=== PATIENT | male | born 1965 | race African-American/Black ===

== ENCOUNTER → 2021-02-03 16:01 | Outpatient (CLI) | payer OTHER, SELFPAY ==
--- NOTE | 2021-02-03 16:08 | EKG12_ITS ---
Test Reason : PREOP Blood Pressure : / mmHG Vent. Rate : 086 BPM Atrial Rate : 086 BPM P-R Int : 182 ms QRS Dur : 076 ms QT Int : 344 ms P-R-T Axes : 048 -26 015 degrees QTc Int : 411 ms Normal sinus rhythm Normal ECG Confirmed by RAUL KEY, MIRLANDE ([id number]), supervising editor news reel KELLI CROOK ([id number]) on 02/07/2021 1:22:47 PM Referred By: Sukumar Negron Confirmed By:MACHO CARTER MD
[2021-02-03 17:29] LABS: Hematocrit 44.4 % (40-54); Hemoglobin 14.6 g/dL (13.0-16.5); Mean Corp Hgb Conc 32.9 g/dL (32-36); Mean Corpuscular Hgb 29.8 pg (27.0-32.0); Mean Corpuscular Volume 90.6 fL (80-94); Mean Platelet Vol. 10.3 fl (6.2-12.0); Platelet Count 249 K/mm3 (150-450); RBC Distribution Width CV 13.1 % (11.6-14.6); RBC Distribution Width SD 42.8 fl (35.1-43.9); White Blood Count 6.4 K/mm3 (4.4-11.0)
[2021-02-03 18:03] LABS: Anion Gap 6 (5-15); BUN 19 mg/dL (7-18); BUN/Creat Ratio 15.3 RATIO (10-20); Chloride 104 mmol/L (98-107); Creatinine, Serum 1.24 mg/dL (0.70-1.30); EST Glomerular Filtration Rate 65 mL/min (>60); Est Glom Filt Rate - Afr Amer 78 mL/min (>60); Glucose 92 mg/dL (74-106); Potassium 4.4 mmol/L (3.5-5.1); Sodium Level 138 mmol/L (136-145)
== END ==
PROVIDERS: PCP Family Medicine; Referring Provider Physician Assistant; Visit Provider Physician Assistant
DX: Z01.810 Encounter for preprocedural cardiovascular examination (principal); Z01.818 Encounter for other preprocedural examination
CPT/HCPCS: 36415; 80048; 85027; 93005

== ENCOUNTER → 2024-02-15 | Outpatient (CLI) | payer OTHER, BC, SELFPAY ==
--- NOTE | 2024-02-15 11:36 | RAD_ITS ---
STUDY: X-RAY - RIGHT WRIST REASON FOR EXAM: Male, 58 years old. Pain following a recent fall. TECHNIQUE: 3 view(s) of the wrist were obtained. COMPARISON: None. FINDINGS: Normal visualized distal radius and ulna. Normal radiocarpal articulation. Normal distal radioulnar articulation. Normal carpal bones. Normal carpal articulations. Increased distance between the navicular and lunate bones. Ligamentous injury should be ruled out. Normal carpometacarpal articulation of the thumb. Normal second through fifth carpometacarpal articulations. Normal visualized metacarpal bones. Soft tissue swelling. RAD/Wrist min 3 Views IMPRESSION: Increased distance between the navicular bone and lunate bone suggestive of ligamentous injury. Soft tissue swelling. Electronically Signed: Gene Silva MD at 12:35 EDT ,
== END | disposition home or self-care (01) ==
PROVIDERS: PCP Family Medicine; Referring Provider Physician Assistant Surgical; Visit Provider Physician Assistant Surgical
DX: S66.911A Strain of unspecified muscle, fascia and tendon at wrist and hand level, right hand, initial encounter (principal)
CPT/HCPCS: 73110

== ENCOUNTER 2025-04-27 11:45 | Emergency (ER) | payer BC, SELFPAY ==
[2025-04-27 11:46] VITALS: BP 120/79; PULSE 76; RESP 18; TEMP 37; O2SAT 99; BMI 32.7
--- NOTE | 2025-04-27 11:58 | US_ITS ---
PROCEDURE: TESTICULAR WITH ARTERIAL FLOW 04/27/2025 REASON FOR EXAM: PAIN AND SWELLING TECHNIQUE: Cedeno scale imaging of the scrotal contents. COMPARISON: None FINDINGS: The right testicle measures 3.4 x 2.9 x 2.1 cm in the left 3.8 x 2.8 x 2.0 cm. There is no testicular mass or cyst. Normal color Doppler is documented with no evidence of torsion. The right epididymis measures 0.7 x 1.0 x 1.1 cm in the left 1.0 x 1.6 x 1.1 cm. There is a small left hydrocele present. There is no significant varicocele identified on the right or left. US/Testicular with Arterial Flow IMPRESSION: There is no testicular mass or torsion. There is a small left hydrocele. Reading Location: [facility]
[2025-04-27 13:45] VITALS: BP 139/70; PULSE 69; RESP 18; O2SAT 98
[2025-04-27 13:55] LABS: Bacteria 0 SEEN /hpf (None Seen); Red Blood Cells-Urine 0 SEEN /hpf (0-5); Squamous Epithelial Cells - UA 0 SEEN /hpf (0-5)
[2025-04-27 14:01] LABS: Color, Urine Yellow (Yellow); Glucose, Dipstick Normal (Normal); Ketone-Dipstick Negative (Negative); Leukocyte Esterase-Dipstick Negative /ul (Negative); Nitrite-Dipstick Negative (Negative); Occult Blood-Urine Negative /ul (Negative); Protein-Dipstick 15 mg/dl (Negative); Urine Bilirubin Dipstick Negative (Negative); Urine Clarity Clear (Clear); Urine Urobilinogen Normal (Normal)
[2025-04-27 14:14] LABS: Mucous, Urine 1+ /hpf (<or=2+); White Blood Cells 0-5 SEEN /hpf (0-5)
--- NOTE | 2025-04-27 14:45 | EDS_ITS ---
HPI History of Present Illness Chief Complaint: Male Pain/Injury Narrative Narrative: Chief complaint and HPI: Left testicular pain and swelling. 59-year-old male with past medical history of GERD presents for evaluation of left testicular pain and swelling. Onset of symptoms Sunday. Patient was seen by his PCP today and sent in for testicular ultrasound. Patient states that he has a history of testicular pain in the past. States he was diagnosed with a UTI and that his symptoms resolved. States he had recurrent pain one other time but that this shortly resolved. He denies any fever, chills, abdominal pain, nausea, vomiting, dysuria, hematuria, penile pain or discharge. States he has no concern for STI as he is in a monogamous relationship with his . He has never seen a urologist. Review of systems: See HPI Medications: As listed on the chart Allergies: As listed on the chart PFSH: Per chart Vital signs: As listed on the chart. Reviewed. Physical exam: Gen: A&O x3, NAD Head: Normocephalic, atraumatic Eyes: No sclera icterus, conjunctiva clear ENT: Moist mucous membranes CV: RRR, no murmurs Resp: Lungs CTA BL, no w/r/c GI: Abd soft, non-distended, non-tender, no r/r/g : No CVA tenderness. Circumcised penis. No penile tenderness or discharge. No penile swelling. Normal lie and position of the testicles although left testicle might be slightly higher than the right. Diffuse but mild left testicular pain without mass or skin changes. Slightly more enlarged compared to the right. Right testicular unremarkable. Cremasteric reflexes intact and equal bilaterally. No rashes. No palpable hernias. Musc: Full ROM, no deformity Skin: Warm, dry Neuro: Alert, oriented, grossly intact, sensation intact Psych: Cooperative, appropriate mood and affect [facility] Medical History (Updated 04/27/25 @ 14:[address] Quincy Delarosa DO) GERD (gastroesophageal reflux disease) History of hemorrhoids Home Medications ?Medication ?Instructions ?Recorded ?Last Taken ?Type famotidine 40 mg tablet 40 mg PO BID 02/15/24 Unknow n History Allergy/AdvReac Type Severity Reaction Status Date / Time cortisone Allergy Mild Rash Verified 02/29/24 11:55 Surgical History No pertinent past surgical history Social History (Updated 04/27/25 @ 13:14 by Susan Sosa) household members: spouse and children housing: house Smoking Status: Never smoker alcohol intake: current substance use type: does not use EXAM Physical Exam Const Vital Signs: 04/27/25 11:46 04/27/25 13:45 04/27/25 14:52 Temperature 98.6 F 98.3 F Temperature Source Temporal Pulse Rate 76 69 69 Respiratory Rate 18 18 18 Blood Pressure 120/79 139/70 H 139/70 H Blood Pressure Mean 92 93 93 Pulse Ox 99 98 98 Oxygen Delivery Method Room Air MDM MDM MDM Narrative Medical decision making narrative: 59-year-old male with past medical history of GERD presents for evaluation of left testicular pain and swelling. Onset of symptoms Sunday. Patient was seen by his PCP today and sent in for testicular ultrasound. Denies concern for STI. Differential diagnosis includes but is not limited to UTI, epididymitis, hydrocele, testicular mass, testicular torsion. UA and testicular ultrasound ordered. I do not think any laboratory workup is needed at this time. Patient declined STI testing. UA negative for UTI and blood. Testicular ultrasound shows no testicular mass or torsion. There is a small left hydrocele. Patient's symptoms are likely secondary to his left hydrocele. Patient was updated of all the results. Plan is to follow-up with urology and PCP. Patient stable to discharge home. He confirmed understanding of plan. Impression: 1. Left testicular hydrocele 2. Left testicle pain Lab Data Labs: Laboratory Results - last 24 hr 04/27/25 13:36 Urine Color Yellow Urine Clarity Clear Urine pH 6.0 Ur Specific [place] 1.020 Urine Protein 15 H Urine Glucose (UA) Normal Urine Ketones Negative Urine Occult Blood Negative Urine Nitrite Negative Urine Bilirubin Negative Urine Urobilinogen Normal Ur Leukocyte Esterase Negative Urine RBC 0 SEEN Urine WBC 0-5 SEEN Ur Squamous Epith Cells 0 SEEN Urine Bacteria 0 SEEN Urine Mucus 1+ Radiography Diagnostic Testing: Clinical Impression(s) from Imaging Studies Testicular Ultrasound 04/27/25 11:58 IMPRESSION: There is no testicular mass or torsion. There is a small left hydrocele. Reading Location: [facility] Discharge Plan Triage Chief Complaint: Male Pain/Injury ED Provider: Quincy Delarosa Dx/Rx/DC Orders Clinical Impression: Hydrocele Instructions: ED Hydrocele, Type Not Specified Prescriptions: No Action famotidine 40 mg tablet 40 mg PO BID Primary Care Provider: Juan Ramon Prakash Referrals: Juan Ramon Prakash MD [Primary Care Provider] - 3-5 Days Augustus Granger MD [Med Staff - Active Staff] - 3-5 Days Activity Restrictions/Additional Instructions: Follow-up with your primary care physician as well as urology. Tylenol and Motrin as needed for pain. Print Language: Portuguese Disposition Disposition: Home, Self Care Discharge Date/Time: 04/27/25 14:54
[2025-04-27 14:52] VITALS: BP 139/70; PULSE 69; RESP 18; TEMP 36.8; O2SAT 98
--- OUTSIDE RECORDS SUMMARY | 2025-04-27 23:25 | XMS RPT_ITS | CCD ---
Author Organization [facility] Care Team Providers Care Butcher Supervisor Name Role Phone Juan Ramon Stapleton MD Primary Care Provider Dr. Juan Ramon Stapleton Primary Care Provider Dr. Juan Ramon Stapleton Referring Provider CRISTIANO Conde Attending Provider Chris Conde Attending Unavailable Juan Ramon Stapleton Primary Care Unavailable Juan Ramon Stapleton Referring Unavailable Juan Ramon Stapleton Primary Care Unavailable Juan Ramon Stapleton Referring Unavailable Chris Conde Attending Unavailable Chris Conde Attending Unavailable Chris Conde Referring Unavailable Juan Ramon Stapleton Primary Care Unavailable Juan Ramon Stapleton MD Primary Care Provider JUAN RAMON STAPLETON Referring Unavailable JUAN RAMON STAPLETON Primary Care Unavailable JUAN RAMON STAPLETON Referring Unavailable JUAN RAMON STAPLETON Primary Care Unavailable JUAN RAMON STAPLETON Referring Unavailable JUAN RAMON STAPLETON Attending Unavailable JUAN RAMON STAPLETON Primary Care Unavailable JUAN RAMON STAPLETON Primary Care Unavailable JUAN RAMON STAPLETON Referring Unavailable JUAN RAMON STAPLETON Primary Care Unavailable JUAN RAMON STAPLETON Attending Unavailable JUAN RAMON STAPLETON Primary Care Unavailable Kapil CAMACHO, Terrie Unavailable Dacia Cagle PA-C Unavailable [phone] Dr. Juan Ramon Stapleton MD Primary Care Provider [phone] Dr. Quincy Delarosa DO Emergency Provider Allergies Allergy Classification Reported Allergen(s) Allergy Type Date of Onset Reaction(s) Facility (20 sources) Ibuprofen; Translations: [IBUPROFEN] Drug Allergy 12-07-2006 Vomiting [facility] Work Phone: (20 sources) lansoprazole; Translations: [LANSOPRAZOLE] Drug Allergy 11-19-2019 Myalgia [facility] Work Phone: (20 sources) Omeprazole; Translations: [OMEPRAZOLE] Drug Allergy 11-19-2019 Myalgia [facility] Work Phone: (9 sources) levoFLOXacin; Translations: [LEVOFLOXACIN] Drug Allergy 02-03-2024 Myalgia [facility] Work Phone: (2 sources) Cortisone Drug Allergy 02-15-2024 Rash [facility] (1 source) Cortisone Drug Allergy 02-29-2024 [facility] Repository Medications Current Medications Medication Drug Class(es) Dates Sig (Normalized) Sig (Original) amoxicillin 875 mg / clavulanate 125 mg oral tablet (1 source) Penicillin-class Antibacterial Start: 03-14-2022 End: 03-24-2022 take 1 tablet by mouth twice daily amoxicillin-clavu lanic acid (AUGMENTIN) 875-125 mg per tablet Indications: Left lateral abdominal pain Take 1 tablet by mouth twice daily for 10 days. 20 tablet 0 03/14/2022 03/24/2022 Active Comment on above: Take 1 tablet by eneida twice daily for 10 days. atorvastatin 10 mg oral tablet (3 sources) HMG-CoA Reductase Inhibitor Start: 09-02-2024 take 1 tablet by mouth every other day for hyperlipidemia atorvastatin (LIPITOR) 10 mg tablet Take 1 tablet by mouth every other day. For cholesterol. 45 tablet 1 09/02/2024 Active enteric contrast (will be provided with radiology test) (4 sources) Start: 01-25-2024 End: 01-26-2024 enteric contrast (will be provided with radiology test) Indications: Inguinal pain of both sides , Lower abdominal pain For CT PELVIS W IVCON order Administer, As Directed One Time Only, via Oral, Rectal, both Oral and Rectal, Enteric Tube, Stoma or Indwelling Catheter, Enteric Contrast as designated per enteric contrast guidelines 1 Each 0 01/25/2024 01/26/2024 Active Start: 03-13-2022 End: 03-13-2022 take 1 dose by mouth once, then take 1 dose by mouth once enteric contrast (will be provided with radiology test) Take 1 Each by mouth one time only for [address] ABD/PEL WO Routine order Administer, As Directed One Time Only, via Oral, Rectal, both Oral and Rectal, Enteric Tube, Stoma or Indwelling Catheter, Enteric Contrast as designated per enteric contrast guidelines 1 Each 0 03/13/2022 03/13/2022 Active Start: 03-13-2022 End: 03-13-2022 take 1 dose by mouth once, then take 1 dose by mouth once enteric contrast (will be provided with radiology test) Indications: Left lower quadrant abdominal pain Take 1 Each by mouth one time only for [address] ABD/PEL WO Routine order Administer, As Directed One Time Only, via Oral, Rectal, both Oral and Rectal, Enteric Tube, Stoma or Indwelling Catheter, Enteric Contrast as designated per enteric contrast guidelines 1 Each 0 03/13/2022 03/13/2022 Active Comment on above: Take 1 Each by mouth one time only for [address] ABD/PEL WO Routine order Administer, As Directed One Time Only, via Oral, Rectal, both Oral and Rectal, Enteric Tube, Stoma or Indwelling Catheter, Enteric Contrast as designated per enteric contrast guidelines For CT PELVIS W IVCO N order Administer, As Directed One Time Only, via Oral, Rectal, both Oral and Rectal, Enteric Tube, Stoma or Indwelling Catheter, Enteric Contrast as designated per enteric contrast guidelines famotidine 40 mg oral tablet (20 sources) Histamine-2 Receptor Antagonist Start: 11-15-2023 End: 08-19-2024 take 1 tablet by mouth twice daily Famotidine 40 mg tablet Active 40 mg PO TWICE A DAY February 15, 2024 12:00am Start: 12-19-2021 End: 07-11-2023 take 1 tablet by mouth every twelve hours as needed famotidine (PEPCID) 40 mg tablet Take 1 tablet by mouth twice daily as needed. 60 tablet 5 07/11/2023 Active Comment on above: Take 1 tablet by eneida th twice daily. Take 1 tablet by eneida th twice daily as needed. Take 1 tablet by eneida th two times a day as needed. iv contrast (will be provided with radiology test) (1 source) Start: 01-25-20 End: 01-26-20 iv contrast (will be provided with radiology test) Indications: Inguinal pain of both sides , Lower abdominal pain CT PELVIS W -Inject, intravenously, once for 1 dose.No IV access, insert saline lock prior to the beginning of sedation, infusion, injection of imaging exam. Discontinue saline lock post exam. If Pt. has a central line or IVAD, may access for administration according to line specific nursing protocol. Once exam is complete flush line and de-access according to line specific nursing protocol in the CT contrast administration guidelines link. 1 Each 0 01/25/2024 01/26/2024 Active Comment on above: CT PELVIS W -Inject, intravenously, once for 1 dose.No IV access, insert saline lock prior to the beginning of sedation, infusion, injection of imaging exam. Discontinue saline lock post exam. If Pt. has a central line or IVAD, may access for administration according to line specific nursing protocol. Once exam is complete flush line and de-access according to line specific nursing protocol in the CT contrast administration guidelines link. sildenafil 50 mg oral tablet (20 sources) Phosphodiesterase 5 Inhibitor Start: 11-15-19 24 End: 08-19-20 24 take 1 tablet by mouth once daily as needed sildenafil (VIAGRA) 50 mg tablet Take 1 tablet by mouth once daily. As needed 10 tablet 5 08/20/2024 Active Start: 11-22-2022 End: 07-11-2023 take 1 tablet by mouth once daily as needed sildenafil (VIAGRA) 50 mg tablet Take 1 tablet by mouth once daily. As needed 10 tablet 5 07/11/2023 Active Start: 12-19-2021 End: 08-09-2022 sildenafil (VIAGRA) 50 mg ta blet Take 1 tablet by mouth as needed. 10 tablet 1 08/09/2022 Active Comment on above: Take 1 tablet by eneida th as needed. Take 1 tablet by eneida th once daily. As needed sulfamethoxazole 800 mg / trimethoprim 160 mg oral tablet (3 sources) Dihydrofolate Reductase Inhibitor Antibacterial, Sulfonamide Antimicrobial Start: 4 End: 4 take 1 tablet by mouth twice daily sulfamethoxazo le-trimethopri m (BACTRIM DS) 800-160 mg per tablet Take 1 tablet by mouth two times a day for 14 days. 28 tablet 0 12/14/2023 12/28/2023 Active Start: 07-11-2023 End: 07-25-2023 take 1 tablet by mouth twice daily sulfamethoxazole-trimethoprim (BACTRIM D S) 800-160 mg per tablet Take 1 tablet by mouth twice daily for 14 days. 28 tablet 0 07/11/2023 07/25/2023 Active Comment on above: Take 1 tablet by eneida twice daily for 14 days. Take 1 tablet by eneida two times a day for 14 days. Completed/Discontinued Medications Medication Drug Class(es) Dates Sig (Normalized) Sig (Original) acetaminophen 325 mg / HYDROcodone bitartrate 5 mg oral tablet (2 sources) Opioid Agonist Start: 04-12-2017 End: 02-15-2024 Hydrocodone-Acetami nophen 1 TABLET tablet Discontinued 1 - 2 {tbl} PO EVERY 4 HOURS NEEDED as needed for Pain April 12, 2017 12:00am February 15, 2024 11:41am Start: 04-12-2017 End: 02-15-2024 take 1 tablet by mouth every four hours as needed Hydrocodone-Acetaminophen Discontinued 1 - 2 TABLET PO EVERY 4 HOURS NEEDED April 12, 2017 12:00am February 15, 2024 11:41am azithromycin 500 mg oral tablet (10 sources) Macrolide Antimicrobial Start: 01-25-2024 End: 08-28-2024 take 2 tablets by mouth once daily azithromycin (ZITHROMAX) 500 mg tablet Take 2 tablets by mouth once daily. 2 tablet 01/25/2024 08/28/2024 Discontinued (Other) Comment on above: Take 2 tablets by mo [facility] once daily. bisacodyl 5 mg delayed release oral tablet (14 sources) Stimulant Laxative Start: 08-30-2021 End: 08-27-2023 Bisacodyl (DULCOLAX) 5 mg tab Indications: Screening for colon cancer Use as directed for Miralax / Gatorade Bowel Prep Kit 4 tablet 0 08/30/2021 08/27/2023 Discontinued Comment on above: Use as directed for Miralax / Gatorade Bowel Prep Kit doxycycline hyclate 100 mg oral tablet (3 sources) Tetracycline-class Drug Start: 02-03-2024 End: 02-29-2024 take 1 tablet by mouth twice daily Doxycycline Hyclate 100 mg tablet Discontinued 100 mg PO TWICE A DAY February 15, 2024 12:00am February 29, 2024 11:55am Comment on above: Take 1 tablet by eneida th two times a day for 14 days. Gatorade Sports Drink (14 sources) Start: 08-30-2021 End: 08-27-2023 Gatorade Sports Drink Indications: Screening for colon cancer Use as directed for Miralax / Gatorade Bowel Prep Kit 0 08/30/2021 08/27/2023 Discontinued (Course of therapy completed) Start: 08-30-2021 Gatorade Sport s Drink Indications: Screening for colon cancer Use as directed for Miralax / Gatorade Bowel Prep Kit 0 08/30/2021 Active Comment on above: Use as directed for Miralax / Gatorade Bowel Prep Kit levoFLOXacin 500 mg oral tablet (6 sources) Quinolone Antimicrobial Start: 2023 End: 2023 take 1 tablet by mouth once daily levoFLOXacin (LEVAQUIN) 500 mg tablet Take 1 tablet by mouth once daily for 14 days. 14 tablet 0 01/25/2024 02/03/2024 Discontinued (Changing Therapy/Dosage Form) Comment on above: Take 1 tablet by eneida th once daily for 14 days. methylPREDNISolone 4 mg oral tablet (2 sources) Corticosteroid Start: 2023 End: 2023 take 1 tablet by mouth once Methylprednisolone (Medrol (Amadeo)) 4 mg tablets,dose pack Discontinued 4 mg PO per package directions 21 6 February 15, 2024 12:00am February 20, 2024 12:00am February 21, 2024 12:05am polyethylene glycol 3350 31278 mg powder for oral solution (14 sources) Osmotic Laxative Start: 2020 End: 2022 polyethylene glycol 3350 (MIRALAX, GLYCOLAX) 17 gram/dose powder Indications: Screening for colon cancer Use as directed for Miralax / Gatorade Bowel Prep Kit 238 g 0 08/30/2021 08/27/2023 Discontinued (Course of therapy completed) Comment on above: Use as directed for Miralax / Gatorade Bowel Prep Kit Problems Active Problems Problem Classification Problem Date Documented Da te Episodic/Chronic Disorders of lipid metabolism (20 sources) Hypertriglyceridemia; Translations: [Pure hyperglyceridemia] Onset: 0 12-04-2019 Chronic Esophageal disorders (20 sources) Gastroesophageal reflux disease; Translations: [Gastro-esophageal reflux disease without esophagitis] Onset: 4 09-24-2018 Chronic Immunizations and screening for infectious disease (4 sources) Hepatitis B screening required; Translations: [Encounter for screening for other viral diseases] Onset: 4 08-28-2024 Episodic Inflammatory conditions of male genital organs (2 sources) Epididymitis; Translations: [Epididymitis] 07-11-2023 Episodic Nausea and vomiting (1 source) Nausea; Translations: [Nausea] 08-27-2023 Episodic Other gastrointestinal disorders (2 sources) Abdominal bloating; Translations: [Abdominal distension (gaseous)] 08-27-2023 Episodic Other gastrointestinal disorders (2 sources) History of hemorrhoid; Translations: [Personal history of other diseases of the digestive system] 02-15-2024 Episodic Other gastrointestinal disorders (1 source) Abdominal distension (gaseous); Translations: [Bloating] Onset: Episodic Other lower respiratory disease (1 source) Cough; Translations: [Acute cough] 09-18-2024 Episodic Other male genital disorders (1 source) Disorder of male genital organ; Translations: [Hydrocele, unspecified] 04-27-2025 Episodic Other upper respiratory infections (1 source) Acute upper respiratory infection; Translations: [Acute upper respiratory infection, unspecified] 09-18-2024 Episodic Residual codes; unclassified (1 source) Family history of malignant neoplasm of digestive organs; Translations: [Family hx of colon cancer] Onset: Episodic Sprains and strains (6 sources) Injury of right wrist; Translations: [Strain of unspecified muscle, fascia and tendon at wrist and hand level, right hand, initial encounter] Onset: 4 02-15-2024 Episodic Past or Other Problems Problem Classification Problem Date Documented Da te Episodic/Chronic Abdominal pain (9 sources) Left lower quadrant pain; Translations: [Left lower quadrant pain] Onset: 01-28-2024 Episodic Allergic reactions (16 sources) Eczema; Translations: [Dermatitis, unspecified] Onset: 08-27-2023 08-27-2023 Episodic Other screening for suspected conditions (not mental disorders or infectious disease) (20 sources) Patient encounter status; Translations: [Encounter for screening for diabetes mellitus] Onset: 10-23-2019 10-23-2019 Episodic Residual codes; unclassified (5 sources) Family history of cancer of colon; Translations: [Family history of malignant neoplasm of digestive organs] Onset: 08-28-2024 08-28-2024 Episodic Screening and history of mental health and substance abuse codes (20 sources) Ex-smoker; Translations: [Personal history of nicotine dependence] Onset: 08-28-2022 Episodic Results Test Name Value Interpretation Reference Range Facility Bilirubin Test strip Ql (U)O rdered By: Quincy Delarosa on 04-27-2025 Bilirubin Ql (U) Negative Negative [facility] Ketones Test strip Ql (U)Ord ered By: Quincy Delarosa on 04-27-2025 Ketones Ql (U) Negative Negative [facility] Microscopic analysis of urin e for red blood cells (RBC)Ordered By: Quincy Delarosa on 04-27-2025 Microscopic analysis of urine for red blood cells (RBC) 0 SEEN /hpf 0-5 [facility] Mucus LM Ql (Urine sed)Order ed By: Quincy Delarosa on 04-27-2025 Mucus Ql (Urine sed) 1+ /hpf [facility] Nitrite Test strip Ql (U)Ord ered By: Quincy Delarosa on 04-27-2025 Nitrite Ql (U) Negative Negative [facility] Protein Test strip Ql (U)Ord ered By: Quincy Delarosa on 04-27-2025 Protein Ql (U) 15 mg/dl High Negative [facility] Squamous epithelial cells de tection in urine sediment by light microscopyOrdered By: Quincy Delarosa on 04-27-2025 Epithelial cells.squamous LM Ql (Urine sed) 0 SEEN /hpf 0-5 [facility] Urine clarityOrdered By: Wilian Delarosa on 04-27-2025 Clarity (U) Clear Clear [facility] Urine color determinationOrd ered By: Quincy Delarosa on 04-27-2025 Color (U) Yellow Yellow [facility] Urine glucose detectionOrder ed By: Quincy Delarosa on 04-27-2025 Glucose Ql (U) Normal mg/dl Normal [facility] Urine leukocyte esterase det ection by dipstickOrdered By: Quincy Delarosa on 04-27-2025 Leukocyte esterase Test strip Ql (U) Negative Negative [facility] Urine pHOrdered By: Quincy Schmidt on 04-27-2025 pH (U) 6.0 [pH] 5.0 - 8.0 [facility] Urine sediment bacteria coun t by microscopy (number/high power field)Ordered By: Quincy Delarosa on 04-27-2025 Bacteria LM.HPF (Urine sed) [#/Area] 0 /[HPF] None Seen [facility] Urine specific gravity measu rementOrdered By: Quincy Delarosa on 04-27-2025 Specific gravity (U) [Rel density] 1.020 1.002-1.030 [facility] Urine urobilinogen measureme ntOrdered By: Quincy Delarosa on 04-27-2025 Urobilinogen Ql (U) Normal mg/dl Normal [facility] White blood cell countOrdere d By: Quincy Delarosa on 04-27-2025 White blood cell count 0-5 SEEN /hpf 0-5 [facility] CNOVon 09-18-2024 CNOV Office Visit (UCTR ) ----- BENJAMIN SHEPARD ([id number]) 1965 M Date Time Provider Department 09/18/24 8:30 AM JAS MYRICK [facility] During your visit today, we recorded the following information about you: Temperature Pulse Respiration Blood pressure 97 degrees 77/minute 20/minute 104/71 Weight 98 kg Jas Myrick MD 09/18/2024 8:50 AM Signed Patient presents with: Cough: Nausea, body chills, productive cough x 4 days HPI: Feeling sick for 4 days. He had sore throat and vomited 1 week ago. Positive symptoms: Cough, Chills, Body Aches, headaches, Nausea, improved Sore throat, resolved Vomiting, some Diarrhea, Negative symptoms: Shortness of breath, Chest tightness, Chest pain, OTC: Mucinex, Dayquil MEDICATIONS: Current Outpatient Medications Medication Sig atorvastatin (LIPITOR) 10 mg tablet Take 1 tablet by mouth every other day. For cholesterol. famotidine (PEPCID) 40 mg tablet Take 1 tablet by mouth two times a day as needed. sildenafil (VIAGRA) 50 mg tablet Take 1 tablet by mouth once daily. As needed No current facility-administered medications for this visit. ALLERGIES: ALLERGIES Allergen Reactions Ibuprofen Vomiting Levaquin [Levofloxa* Myalgia [place] like a muscle strain in his calves. Omeprazole Myalgia Prevacid [Lansopraz* Myalgia VITALS: BP 104/71 Pulse 77 Temp 36.1 ?C (97 ?F) Resp 20 Wt 98 kg (216 lb 0.8 oz) SpO2 98% BMI 34.35 kg/m? PHYSICAL EXAM: GEN: mildly ill appearing, pleasant, alert HEENT: PERRL, EOMI, conjunctiva clear Ears: canals with small soft distal cerumen. TMs without erythema, bulge, or effusion Sinuses: non-tender frontal sinus, non-tender maxillary sinuses Throat: moist mucous membranes, mild erythema, no exudate Neck: supple, no thyromegaly, no lymphadenopathy HEART: regular rate and rhythm, no murmurs LUNGS: clear to auscultation, no wheezes or crackles, no increased WOB ASSESSMENT/PLAN: 1. URI, acute - ICD9: 465.9, ICD10: J06.9 (primary diagnosis) 2. Acute cough - ICD9: 786.2, ICD10: R05.1 - suspect viral URI; differential includes COVID, influenza, and occult pneumonia (prevalent in the community). - He would like to continue supportive care treatment with rest, cold medicine, and analgesia. Follow up with worsening cough, shortness of breath, chest pain, lethargy, or persistent fever. Jas Myrick MD Allergies As of Date: 09/18/2024 Noted Allergy Reaction IBUPROFEN 12/07/2006 11 - Vomiting LEVAQUIN (LEVOFLOXACIN) 02/03/2024 17 - Myalgia Comments: [place] like a muscle strain in his calves. OMEPRAZOLE 11/19/2019 17 - Myalgia PREVACID (LANSOPRAZOLE) 11/19/2019 17 - Myalgia Date Reviewed: 09/18/2024 Reviewed by: Filomena Johnson LPN - Fully Assessed Reason for Visit: Cough [28] Cmt: Nausea, body chills, productive cough x 4 days Primary Visit Diagnosis:URI, acute [J06.9] Other Visit Diagnosis:Acute cough [R05.1] Prescriptions as of 09/18/2024 - atorvastatin (LIPITOR) 10 mg tablet Take 1 tablet by mouth every other day. For cholesterol. - famotidine (PEPCID) 40 mg tablet Take 1 tablet by mouth two times a day as needed. - sildenafil (VIAGRA) 50 mg tablet Take 1 tablet by mouth once daily. As needed Problem List As Of Date 09/18/2024 Noted Resolved GERD (gastroesophageal reflux disease) [K21.9] 10/13/2014 Well adult exam [Z00.00] 10/13/2014 Encounter for screening for diabetes mellitus [*10/23/2019 Hypertriglyceridemia [E78.1] 12/04/2019 Screening for prostate cancer [Z12.5] 08/25/2021 Screening for colon cancer [Z12.11] 08/25/2021 Hyperlipidemia, mixed [E78.2] 08/26/2021 Ex-smoker [Z87.891] 08/28/2022 Eczema [L30.9] 08/27/2023 Family hx of colon cancer [Z80.0] 08/28/2024 Level of Service: OFFICE/OUTPATIENT ESTABLISHED LOW MDM 20 MIN [87561] Letter Text Encounter Status:Closed by JAS MYRICK on 09/18/24 [facility] 08-28-2024 CNOV Office Visit (FAMPWS ) ----- BENJAMIN SHEPARD ([id number]) 1965 M Date Time Provider Department 08/28/24 8:00 AM JUAN RAMON STAPLETON During your visit today, we recorded the following information about you: Pulse Blood pressure Weight Height 74/minute 122/74 95.8 kg 1.689 m Juan Ramon Stapleton MD 08/28/2024 11:27 AM Signed Chief Complaint Patient presents with: Physical HPI Benjamin Shepard is a 58 year old male who presents here today for Physical. Patient with hx of high triglycerides, hyperlipidemia, ex-smoker and GERD but otherwise healthy Patient has been doing well. Notes after eating he will feel bloated. No pain or nausea. Past medical history, appointments, medications, allergies reviewed. Previous Medical History PAST MEDICAL HISTORY Diagnosis Date Ex-smoker 08/28/2022 Quit 1998: smoed about a 1/4PPD for about 8 years. GERD (gastroesophageal reflux disease) 10/13/2014 Hyperlipidemia, mixed 08/26/2021 Hypertriglyceridemia 12/04/2019 sleep study 2008 negative for sleep apnea Well adult exam 10/13/2014 Last done 08/28/2022 Previous Surgical History PAST SURGICAL HISTORY Procedure Laterality Date 2D ECHO COMPLETE INP 11/11/2014 EF= 58% no abnornalities COLONOSCOPY FLX DX W/COLLJ SPEC WHEN PFRMD 05/24/2009 Colonoscopy, repeat 5 yrs (dad with colon CA) KNEE ARTHROSCOP MENISCUS REPAIR MED/LAT Right 02/10/2021 PAST SURGICAL HISTORY OF 08/12/2003 varicose Veins PAST SURGICAL HISTORY OF 08/12/2003 bloodclot removal Family History FAMILY HISTORY Problem Relation Age of Onset Colon Cancer Father 70 or 71 Colon Cancer Maternal Aunt Colon Cancer Maternal Grandmother stomach or colon Heart Maternal Uncle pace maker Coronary Artery Disease Maternal Uncle 50's Diabetes Maternal Aunt Stroke Maternal Grandfather Patient Allergies ALLERGIES Allergen Reactions Ibuprofen Vomiting Levaquin [Levofloxa* Myalgia [place] like a muscle strain in his calves. Omeprazole Myalgia Prevacid [Lansopraz* Myalgia Current Medications Current Outpatient Medications on File Prior to Visit Medication Sig famotidine (PEPCID) 40 mg tablet Take 1 tablet by mouth two times a day as needed. sildenafil (VIAGRA) 50 mg tablet Take 1 tablet by mouth once daily. As needed azithromycin (ZITHROMAX) 500 mg tablet Take 2 tablets by mouth once daily. No current facility-administered medications on file prior to visit. Social History Social History Tobacco Use Smoking status: Former Current packs/day: 0.25 Average packs/day: 0.3 packs/day for 8.0 years (2.0 ttl pk-yrs) Types: Cigarettes Smokeless tobacco: Former Types: Chew Vaping Use Vaping status: Never Used Substance Use Topics Alcohol use: Yes Comment: weekends Drug use: No Review of Symptoms REVIEW OF SYSTEMS GENERAL: No weight loss, malaise or fevers HEENT: has been getting some headache's and thinks he may need vision. No sever and will respond to OTC meds. Sometimes will go away on it's own . No headache's caused by pushing, straining. Not being awoken by headaches. No changes in hearing. no nose bleeds or other nasal problems NECK: Negative for lumps, goiter, pain and significant neck swelling RESPIRATORY: Negative for cough, hemoptysis, wheezing, COPD, dyspnea or shortness of breath CARDIOVASCULAR: Negative for chest pain, leg swelling, hypertension, CHF or palpitations GI: No nausea, vomiting, or diarrhea and No frequent heartburn or reflux symptoms. No blood. See HPI : No history of dysuria, frequency or blood MUSCULOSKELETAL: Negative for joint pain or swelling, back pain or muscle pain SKIN: Negative for lesions, rash, and itching PSYCH: Negative for sleep disturbance, mood disorder and recent psychosocial stressors HEMATOLOGY/LYMPHOLOGY: Negative for prolonged bleeding, bruising easily or swollen nodes ENDOCRINE: Negative for cold or heat intolerance, polyuria, polydipsia and goiter NEURO: No history of syncope, paralysis, seizures or tremors EXAM: BP 122/74 Pulse 74 Ht 168.9 cm (5' 6.5) Wt 95.8 kg (211 lb 3.2 oz) BMI 33.58 kg/m? Last 5 Encounter Wt Readings: Date: Wt: 08/28/2024 95.8 kg (211 lb 3.2 oz) 01/25/2024 94.8 kg (209 lb) 08/27/2023 96.6 kg (213 lb) 08/03/2023 97.1 kg (214 lb) 07/11/2023 96.2 kg (212 lb) General Appearance: Well appearing, alert, in no acute distress, well-hydrated, well nourished.. Skin: Skin color, texture, turgor normal, no suspicious rashes or lesions. Head: Normocephalic, no masses, lesions, tenderness or abnormalities. Eyes: Anicteric sclera. Pupils are equally round and reactive to light. Extraocular movements are intact. . Ears: External ears, TM's normal, canals clear. Nose/Sinuses: Nares normal, septum midline, mucosa normal, no drainage or sinus tenderness. Oropharynx: Lips, mucosa, and tongue normal, teeth an (more content not included)... Normal [facility] 08-28-2024 [facility] Telephone (DARLINGWS) ----- BENJAMIN SHEPARD ([id number]) 1965 M Date Time Provider Department 08/28/24 JUAN RAMON STAPLETON During your visit today, we recorded the following information about you: Juan Ramon Stapleton MD 08/28/2024 9:31 PM Signed Let patient know he is not immune to Hep B. Would advise a nurse visit to start the series and might as well get the shingrix as well. His lipid panel showed Trigs ok at 142, HDL ok at 49 and LDL high at 176. At this time because his LDL is staying elevated I would advise we start atorvastatin at 10 mg day. If ok will send in a script. Would want liver functions and repeat lipid panel in 3 months. His other labs were all ok. Jessica Castillo LPN 08/29/2024 8:45 AM Signed Left message for pt to contact office. TOMER Holloway Kathryn, MA 09/01/2024 4:48 PM Signed Pt notified. 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 States if there is a side effect to get he usually gets it. He would like to work on diet and exercise and see where his labs are in 3 months, then might consider medication. DEWEY George Jeffrey A, MD 09/02/2024 9:23 AM Signed Advise patient order placed to get lipids done on or after 12/03/2024 Jessica Castillo LPN 09/02/2024 9:29 AM Signed Pt notified pf pcp's message. Pt is wanting to know how long it would take for the side effects of the Lipitor to show up if he decided to take it. Advised pt it can take a month or two but pt wanting to check with pcp. TOMER Holloway Jeffrey A, MD 09/02/2024 9:48 AM Signed At the earliest side affects can show up within days of starting it. Otherwise sometimes it may take longer. We crainal nerves also have him just take one every other day to start. Roseline Bell MA 09/02/2024 12:52 PM Signed Patient notified and voiced understanding. Patient agreeable to start medication. Roseline Bell MA Allergies As of Date: 08/28/2024 Noted Allergy Reaction IBUPROFEN 12/07/2006 11 - Vomiting LEVAQUIN (LEVOFLOXACIN) 02/03/2024 17 - Myalgia Comments: [place] like a muscle strain in his calves. OMEPRAZOLE 11/19/2019 17 - Myalgia PREVACID (LANSOPRAZOLE) 11/19/2019 17 - Myalgia Date Reviewed: 08/28/2024 Reviewed by: Juan Ramon Stapleton MD - Fully Assessed Reason for Visit: Results [95] Primary Visit Diagnosis:Hyperlipidemia, mixed [E78.2] Order(s):LIPID PANEL, NONFASTING [SQLIPNF] Order #: [id number] FUTURE atorvastatin (LIPITOR) 10 mg tabletTake 1 tablet by mouth every other day. For cholesterol.Disp: 45 tabletRfl: 1 HEPATIC FUNCTION PNL [SQHFP] Order #: [id number] FUTURE Prescriptions as of 09/02/2024 - atorvastatin (LIPITOR) 10 mg tablet Take 1 tablet by mouth every other day. For cholesterol. - famotidine (PEPCID) 40 mg tablet Take 1 tablet by mouth two times a day as needed. - sildenafil (VIAGRA) 50 mg tablet Take 1 tablet by mouth once daily. As needed Problem List As Of Date 08/28/2024 Noted Resolved GERD (gastroesophageal reflux disease) [K21.9] 10/13/2014 Well adult exam [Z00.00] 10/13/2014 Encounter for screening for diabetes mellitus [*10/23/2019 Hypertriglyceridemia [E78.1] 12/04/2019 Screening for prostate cancer [Z12.5] 08/25/2021 Screening for colon cancer [Z12.11] 08/25/2021 Hyperlipidemia, mixed [E78.2] 08/26/2021 Ex-smoker [Z87.891] 08/28/2022 Eczema [L30.9] 08/27/2023 Family hx of colon cancer [Z80.0] 08/28/2024 Prescriptions ordered this encounter Disp Refills Start End ATORVASTATIN 10 MG TABLET 45 t* 1 09/02/2024 Route: ORAL Sig: Take 1 tablet by mouth every other day. For cholesterol. Letter Text Letter Text Encounter Status:Closed by JUAN RAMON STAPLETON on 09/02/24 Normal [facility] Comprehensive metabolic 2000 panelon 08-28-2024 Albumin [Mass/Vol] 4.3 g/dL Normal 3.9-4.9 [facility] Comment on above: Order Comment: Speci men Type: BLOOD SPECIMENOrdering Facility: [facility] Address: [address] [place] [address] Performed By: #### 2 4323-8, LIPNF ####[facility] LABCLIA [id number] [place] [address] [place] ALP [Catalytic activity/Vol] 48 U/L Normal 38-113 [facility] Comment on above: Order Comment: Speci men Type: BLOOD SPECIMENOrdering Facility: [facility] Address: [address] [place] [address] Performed By: #### 2 4323-8, LIPNF ####[facility] LABCLIA [id number] [place] [address] [place] ALT [Catalytic activity/Vol] 31 U/L Normal 10-54 [facility] Comment on above: Order Comment: Speci men Type: BLOOD SPECIMENOrdering Facility: [facility] Address: [address] [place] [address] Performed By: #### 2 4323-8, LIPNF ####[facility] LABCLIA [id number] [place] [address] [place] Anion gap [Moles/Vol] 9 mmol/L Normal 8-15 [facility] Comment on above: Order Comment: Speci men Type: BLOOD SPECIMENOrdering Facility: [facility] Address: [address] [place] [address] Performed By: #### 2 4323-8, LIPNF ####[facility] LABCLIA [id number] [place] [address] [place] AST [Catalytic activity/Vol] 26 U/L Normal 14-40 [facility] Comment on above: Order Comment: Speci men Type: BLOOD SPECIMENOrdering Facility: [facility] Address: [address] [place] [address] Performed By: #### 2 4323-8, LIPNF ####[facility] LABCLIA [id number] [place] [address] [place] Bilirubin [Mass/Vol] 0.7 mg/dL Normal 0.2-1.[address] [facility] Comment on above: Order Comment: Speci men Type: BLOOD SPECIMENOrdering Facility: [facility] Address: [address] [place] [address] Performed By: #### 2 4323-8, LIPNF ####[facility] LABCLIA [id number] [place] [address] [place] Calcium [Mass/Vol] 9.4 mg/dL Normal 8.5-10.2 [facility] Comment on above: Order Comment: Speci men Type: BLOOD SPECIMENOrdering Facility: [facility] Address: [address] [place] [address] Performed By: #### 2 4323-8, LIPNF ####[facility] LABCLIA [id number] [place] [address] [place] Chloride [Moles/Vol] 103 mmol/L Normal 98-[address] [facility] Comment on above: Order Comment: Speci men Type: BLOOD SPECIMENOrdering Facility: [facility] Address: [address] [place] [address] Performed By: #### 2 4323-8, LIPNF ####[facility] LABCLIA [id number] [place] [address] [place] CO2 [Moles/Vol] 26 mmol/L Normal 22-30 [facility] Comment on above: Order Comment: Speci men Type: BLOOD SPECIMENOrdering Facility: [facility] Address: [address] [place] [address] Performed By: #### 2 4323-8, LIPNF ####[facility] LABCLIA [id number] [place] [address] [place] Creatinine [Mass/Vol] 1.06 mg/dL Normal 0.73-1.22 [facility] Comment on above: Order Comment: Speci men Type: BLOOD SPECIMENOrdering Facility: [facility] Address: [address] [place] [address] Performed By: #### 2 4323-8, LIPNF ####[facility] LABCLIA [id number] [place] [address] [place] Creatinine and Glomerular filtration rate.predicted panel (S/P/Bld) 82 mL/min/1.73m??? Normal >=60 [facility] Comment on above: Order Comment: Speci men Type: BLOOD SPECIMENOrdering Facility: [facility] Address: [address] [place] [address] Result Comment: Fabiana mated Glomerular Filtration Rate (eGFR) is calculated using the 2020 CKD-EPI creatinine equation. This equation utilizes serum creatinine, sex, and age as parameters. The creatinine assay has traceable calibration to isotope dilution-mass spectrometry. Refer to KDIGO guidelines for clinical interpretation. In patients with unstable renal function, e.g. those with acute kidney injury, the eGFR may not accurately reflect actual GFR. Performed By: #### 2 4323-8, LIPNF ####[facility] LABCLIA [id number] [place] [address] [place] Glucose [Mass/Vol] 70 mg/dL Low 74-99 [facility] Comment on above: Order Comment: Speci elvin Type: BLOOD SPECIMENOrdering Facility: [facility] Address: [address] [place] [address] Result Comment: The [place] Diabetes Association (ADA) provides guidance for cutoff values for fasting glucose and random glucose. The ADA defines fasting as no caloric intake for at least 8 hours. Fasting plasma glucose results between 100 to 125 mg/dL indicate increased risk for diabetes (prediabetes). Fasting plasma glucose results greater than or equal to 126 mg/dL meet the criteria for diagnosis of diabetes. In the absence of unequivocal hyperglycemia, results should be confirmed by repeat testing. In a patient with classic symptoms of hyperglycemia or hyperglycemic crisis, random plasma glucose results greater than or equal to 200 mg/dL meet the criteria for diagnosis of diabetes. Reference: Standards of Medical Care in Diabetes 2016, [place] Diabetes Association. Diabetes Care. 2016.39(Suppl 1). Performed By: #### 2 4323-8, LIPNF ####[facility] LABCLIA [id number] [place] [address] [place] Potassium [Moles/Vol] 4.2 mmol/L Normal 3.7-5.1 [facility] Comment on above: Order Comment: Wojciech oconnor Type: BLOOD SPECIMENOrdering Facility: [facility] Address: [address] [place] [address] Performed By: #### 2 4323-8, LIPNF ####[facility] LABCLIA [id number] [id number] [address] [place] Protein [Mass/Vol] 7.7 g/dL Normal 6.3-8.0 [facility] Comment on above: Order Comment: Speci men Type: BLOOD SPECIMENOrdering Facility: [facility] Address: [address] [place] [address] Performed By: #### 2 4323-8, LIPNF ####[facility] LABCLIA [id number] [place] [address] [place] Sodium [Moles/Vol] 138 mmol/L Normal 136-144 [facility] Comment on above: Order Comment: Speci men Type: BLOOD SPECIMENOrdering Facility: [facility] Address: [address] [place] [address] Performed By: #### 2 4323-8, LIPNF ####[facility] LABCLIA [id number] [address] [place] Urea nitrogen [Mass/Vol] 12 mg/dL Normal 9-24 [facility] Comment on above: Order Comment: Speci men Type: BLOOD SPECIMENOrdering Facility: [facility] Address: [address] [place] [address] Performed By: #### 2 4323-8, LIPNF ####[facility] LABCLIA [id number] [place] [address] [place] HBV surface Ab Ql (S)on 08-12 HBV surface Ab Qn (S) <8.00 Normal [facility] Comment on above: Order Comment: Speci men Type: BLOOD SPECIMENOrdering Facility: [facility] Address: [address] [place] [address] Result Comment: <8 m IU/mL: No serological evidence of immunity to Hepatitis B Virus. >/= 8 to <12 mIU/mL: No serological evidence of immunity to Hepatitis B Virus. >/= 12 mIU/mL: Consistent with serological evidence of immunity to Hepatitis B Virus. Performed By: #### 2 2322-2 ####[facility] LABCLIA [id number] [address] [place] HBV surface Ab Ser Qlon 08-12 HBV surface Ab Ql (S) Negative Normal [facility] Comment on above: Order Comment: Speci men Type: BLOOD SPECIMENOrdering Facility: [facility] Address: [address] [place] [address] Result Comment: No s erological evidence of immunity to Hepatitis B Virus. Performed By: #### 2 2322-2 ####[facility] LABCLIA [id number] [address] OF [facility] HbA1c (Bld)on 08-28-2024 Average glucose Estimated from glycated hemoglobin (Bld) [Mass/Vol] 108 mg/dL Normal [facility] Comment on above: Order Comment: Wojciech oconnor Type: BLOOD SPECIMENOrdering Facility: [facility] Address: [address] [place] [address] Result Comment: eAG: (Estimated average glucose) is a calculated value from HgbA1c and is provider service representative of the average blood glucose level in the last 2-3 month period. Performed By: #### 5 5454-3 ####[facility] LABIA [id number] [address] [place] OF [facility] HbA1c (Bld) [Mass fraction] 5.4 % Normal 4.3-5.6 [facility] Comment on above: Order Comment: Elkini elvin Type: BLOOD SPECIMENOrdering Facility: [facility] Address: [address] [place] [address] Result Comment: Amer [place] Diabetes Association guidelines indicate that patients with HgbA1c in the range 5.7-6.4% are at increased risk for development of diabetes, and intervention by lifestyle modification may be beneficial. HgbA1c greater or equal to 6.5% is considered diagnostic of diabetes. Performed By: #### 5 5454-3 ####[facility] LABCLIA [id number] [address] [place] LIPID PANEL, NONFASTINGon Cholesterol [Mass/Vol] 253 mg/dL High <200 [facility] Comment on above: Order Comment: Speci men Type: BLOOD SPECIMENOrdering Facility: [facility] Address: [address] [place] [address] Result Comment: <200 mg/dL, Desirable 200-239 mg/dL, Borderline high >239 mg/dL, High Performed By: #### 2 4323-8, LIPNF ####[facility] LABCLIA [id number] [place] [address] [place] HDL CHOLESTEROL, NF 49 mg/dL Normal >39 [facility] Comment on above: Order Comment: Speci men Type: BLOOD SPECIMENOrdering Facility: [facility] Address: [address] [place] [address] Result Comment: 40-5 9 mg/dL, Acceptable >59 mg/dL, High: Negative risk factor for coronary heart disease <40 mg/dL, Low: Positive risk factor for coronary heart disease Performed By: #### 2 4323-8, LIPNF ####[facility] LABCLIA [id number] [address] [place] LDL CHOLESTEROL, NF 176 mg/dL High <100 [facility] Comment on above: Order Comment: Speci men Type: BLOOD SPECIMENOrdering Facility: [facility] Address: [address] [place] [address] Result Comment: <100 mg/dL, Optimal 100-129 mg/dL, Near optimal/above optimal 130-159 mg/dL, Borderline high 160-189 mg/dL, High >189 mg/dL, Very high Secondary prevention optimal LDL Cholesterol levels are recommended to be < 70 mg/dL Performed By: #### 2 4323-8, LIPNF ####[facility] LABCLIA [id number] [address] [place] LDL/HDL RATIO, NF 3.59 mg/dL High <2.54 [facility] Comment on above: Order Comment: Speci men Type: BLOOD SPECIMENOrdering Facility: [facility] Address: [address] [place] [address] Result Comment: Jaiden peacock: 1. National Cholesterol Education Program ATP III Guideline At-A-Glance Quick Desk Reference: National Heart, Lung, and Blood Simpson. National Institutes of Health. 2001: NIH Publication No. 01-3305. 2. An International Atherosclerosis Society position paper: global recommendations for the management of dyslipidemia: executive summary, Atherosclerosis. 2014: 232(2):410-413. Performed By: #### 2 4323-8, LIPNF ####[facility] LABCLIA [id number] [place] [address] [place] NON HDL CHOL, NF 204 mg/dL High <130 [facility] Comment on above: Order Comment: Speci men Type: BLOOD SPECIMENOrdering Facility: [facility] Address: [address] [place] [address] Result Comment: <130 mg/dL, Optimal 130-159 mg/dL, Near optimal/above optimal 160-189 mg/dL, Borderline high 190-219 mg/dL, High >219 mg/dL, Very high Secondary prevention optimal non HDL Cholesterol levels are recommended to be <100 mg/dL Performed By: #### 2 4323-8, LIPNF ####[facility] LABCLIA [id number] [place] [address] [place] T CHOL/HDL RATIO NF 5.16 mg/dL High <5.10 [facility] Comment on above: Order Comment: Speci men Type: BLOOD SPECIMENOrdering Facility: [facility] Address: [address] [place] [address] Performed By: #### 2 4323-8, LIPNF ####[facility] LABCLIA [id number] [place] [address] [place] TRIGLYCERIDES, NF 142 mg/dL Normal <150 [facility] Comment on above: Order Comment: Speci men Type: BLOOD SPECIMENOrdering Facility: [facility] Address: [address] [place] [address] Result Comment: <150 mg/dL, Normal 150-199 mg/dL, Borderline high 200-499 mg/dL, High >499 mg/dL, Very high Performed By: #### 2 4323-8, LIPNF ####[facility] LABCLIA [id number] [place] [address] [place] VLDL CHOLESTEROL, NF 28 mg/dL Normal <[address] [facility] Comment on above: Order Comment: Speci men Type: BLOOD SPECIMENOrdering Facility: [facility] Address: [address] [place] [address] Performed By: #### 2 4323-8, LIPNF ####[facility] LABCLIA [id number] [place] [address] [place] [facility] Prostate specific Ag [Mass/Vol] 0.76 ng/mL Normal <2.60 [facility] Comment on above: Order Comment: Speci men Type: BLOOD SPECIMENOrdering Facility: [facility] Address: [address] [place] [address] Result Comment: Tota l PSA test methodology used is the Electrochemiluminescence Immunoassay by [employer]. Total PSA values by differing methodologies cannot be interchanged. Performed By: #### 2 857-1 ####[facility] LABCLIA [id number] [place] [address] [place] Urgent Care Visit Reporton 0 02-29-2024 Urgent Care Visit Report [facility] [address], [address] [place] [address] OFFICE VISIT Date of Service: 02/29/24 MR#: [id number] Acct: [id number] Name: BENJAMIN SHEPARD Rep #: [id number] : 1965 Provider: CRISTIANO Hudson Age/Sex: 58/M Location: [facility] Status: Signed Intake Vital Signs 02/15/24 11:37 02/29/24 11:55 Height 5 ft 8 in Weight: 212 lb 8 oz BMI 32.3 BP 130/68 H 132/88 H Blood Pressure Location Rt brachial Lt brachial Position Sitting Sitting Respiration 17 15 Pulse 79 79 Pulse Source NIBP NIBP Temp 98.2 F 97.8 F Temp Source Temporal Temporal Pulse Oximetry (%) 98 98 Oxygen Delivery Method room air room air Intake Visit Reasons: RT WRIST/ [facility] Chief Complaint: right wrist injury-- f/u Rn Transfer Required: No Is patient in pain?: Yes Allergies cortisone Allergy (Mild, Verified 02/29/24 11:55) Rash Medications famotidine 40 mg tablet 40 mg PO BID 02/15/24 [History Confirmed 02/15/24] [facility] Medical History (Updated 02/15/24 @ 11:48 by Rachael Bell) GERD (gastroesophageal reflux disease) History of hemorrhoids Surgical History (Updated 02/15/24 @ 11:42 by Rachael Bell) No pertinent past surgical history Social History (Updated 02/15/24 @ 11:43 by Rachael Bell) Smoking Status: Never smoker alcohol intake: current substance use type: does not use [facility] HPI Chief Complaint: right wrist injury-- f/u Details: BENJAMIN SHEPARD, is a 58 M who presents to the office today for follow-up of a right wrist injury which occurred at work 2 months ago. Patient states that since his last visit here he has had some slight improvement to the right wrist pain however continues to have pain with certain movements or when shaking someone's hand. Patient states that he wears his brace at all times at work and does take it off sometimes at home. He denies numbness, tingling or loss range of motion however does state that he continues to have some loss in strength to the wrist. No other associated symptoms or alleviating/aggravating factors. ROS Const Constitutional: No other (6 system ROS completed with pertinent findings in the HPI otherwise normal.) Exam Const General: cooperative and healthy appearing Resp Effort Inspection: normal respiratory effort Skin General: no rashes or lesions noted Neuro General: patient alert Extrem General: full ROM and capillary refill normal Other: Pain to palpation of the left wrist at the base of the left thumb and distal radius with no obvious deformity to palpation. Negative Phalen's and Tinel's sign. Appropriate sensation light touch distally as well as appropriate capillary refill intact throughout. Psych Appearance: grossly normal Mental Status: mental status grossly normal Coding Level of Care Code Off vis,est,level 3 Diagnoses Strain of right wrist S66.911A Assessment and Plan Assessment and Plan (1) Strain of right wrist: Status: Acute Plan [employer] 14 filled out releasing patient back to work without restrictions as previous. Form C9 filled out requesting occupational therapy. Patient advised to continue ice at home use of the wrist brace as well as ibuprofen or Tylenol as needed for pain. Patient advised to follow-up here in 4 weeks for reevaluation or sooner should he have any worsening symptoms or new concerns. Patient verbalized understanding and agreement with all the above. Clinical Quality Measures High Blood Pressure Screening/Follow Up High Blood Pressure follow-up Instructions: Recommended Blood Pressure Follow-Up Interventions: *Normal BP: No follow-up required for SBP < 120 mmHg and DBP < 80 mmHg: *Elevated BP: Patients with SBP of 120-129 mmHg and DBP < 80 mmHg: *Referral to Alternate/Primary Care Health Head Up Operator Helper OR * Follow-up with rescreen in 2 to 6 months AND recommend nonpharmacologic interventions * First Hypertensive BP Reading: Patients with one elevated reading of SBP >=130 mmHg OR DBP >= 80 mmHg: *Referral to Alternate/Primary Care Health Professional OR *Follow-up with rescreen in >1 day and < 4 weeks AND recommend nonpharmacologic interventions *Second Hypertensive BP Reading: *Second Hypertensive BP Reading:Patients with second elevated reading of SBP of 130-139 mmHg or DBP of 80-89 mmHg (and not SBP >=140 or DBP >=90): * Referral to Alternate/Primary Care Health Head Up Operator Helper OR *Nonpharmacological Intervention AND reassessment in 2-6 months AND an order for a laboratory test or ECG for hypertension *Second Hypertensive BP Reading: SBP >=140 or DBP >=90 *Referral to Alternate/Primary Care Healthcare Professional OR *Nonpharmacological Intervention AND BP lowering medication AND reassessment within 4 weeks AND an order for (more content not included)... Normal [facility] Urgent Care Visit Reporton 0 02-15-2024 Urgent Care Visit Report [facility] [address] [facility], [address] [place] [address] OFFICE VISIT Date of Service: 02/15/24 MR#: [id number] Acct: [id number] Name: BENJAMIN SHEPARD #: [id number] : 1965 Provider: CRISTIANO Hudson Age/Sex: 58/M Location: [facility] [place].NOW Status: Signed with Addenda ADDENDUM by CRISTIANO Hudson on 02/29/24 at 1257 HPI Details: BENJAMIN SHEPARD, is a 58 M who presents to the office today for initial evaluation of right wrist strain. Patient states that this occurred approximately 6 to 7 weeks ago however he has been trying to treat himself. 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 He denies any previous injuries to same. No other associated symptoms or alleviating/aggravating factors. ROS Const Constitutional: No other (6 system ROS completed with pertinent findings in the HPI otherwise normal.) Assessment and Plan Assessment and Plan (1) Strain of right wrist: Status: Acute Orders: Orders Wrist min 3 Views 02/15/24 S66.911A - Strain of unspecified muscle, fascia and tendon at wrist and hand level, right hand, initial encounter Physical Exam #2 - Admit Phys Objective: Vital Signs Temp Pulse Resp BP Pulse Ox 98.2 F 79 17 130/68 H 98 02/15/24 11:37 02/15/24 11:37 02/15/24 11:37 02/15/24 11:37 02/15/24 11:37 Weight: 212 lb 8 oz Body Mass Index (BMI) 32.3 General: Alert and Oriented x3 Lungs: Clear to auscultation Extremities: Capillary Refill Less than 3 Seconds and Peripheral Pulses Normal Musculoskeletal: - (Pain to palpation right wrist distal radius negative Tinel and Phalen) 02/29/24 1257 Date Chris Reed cc: * Signed Intake Vital Signs 02/15/24 11:37 Height 5 ft 8 in Weight: 212 lb 8 oz BMI 32.3 BP 130/68 H Blood Pressure Location Rt brachial Position Sitting Respiration 17 Pulse 79 Pulse Source NIBP Temp 98.2 F Temp Source Temporal Pulse Oximetry (%) 98 Oxygen Delivery Method room air Intake Visit Reasons: RT WRIST INJURY/ [facility] Chief Complaint: right wrist injury-- Rn Transfer Required: No Is patient in pain?: Yes Allergies cortisone Allergy (Mild, Verified 02/15/24 11:41) Rash Medications doxycycline hyclate 100 mg tablet 100 mg PO BID 02/15/24 [History Confirmed 02/15/24] famotidine 40 mg tablet 40 mg PO BID 02/15/24 [History Confirmed 02/15/24] methylprednisolone 4 mg tablets in a dose pack (Medrol (Amadeo)) 4 mg PO PER PKG DIR 6 days #21 tabs 02/15/24 [Rx Confirmed 02/15/24] Nurse's Note: right wrist injury, missed last step of ladder. fell, tried to catch himself and jammed right wrist. thought pain would resolve but persists. worsening pain with shaking hands/grasping items etc. PFSH Medical History (Updated 02/15/24 @ 11:48 by Rachael Bell) GERD (gastroesophageal reflux disease) History of hemorrhoids Surgical History (Updated 02/15/24 @ 11:42 by Rachael Bell) No pertinent past surgical history Social History Smoking Status: Never smoker alcohol intake: current substance use type: does not use HPI HPI Chief Complaint: right wrist injury-- Details: BENJAMIN SHEPARD, is a 58 M who presents to the office today for Coding Level of Care Code Off vis,new,level 4 Diagnoses Strain of right wrist S66.911A Assessment and Plan Assessment and Plan (1) Strain of right wrist: Status: Acute Orders: Orders Wrist min 3 Views Today S66.911A - Strain of unspecified muscle, fascia and tendon at wrist and hand level, right hand, initial encounter Medications: New methylprednisolone (Medrol (Amadeo)) 4 mg PO PER PKG DIR 6 days 21 tabs 0RF Plan X-ray of the right wrist read and interpreted myself as no acute osseous abnormalities, awaiting radiology interpretation at time of patient discharge. First report of injury form as well as [employer] 14 filled out releasing patient back to work today without restriction per his request. Medrol Dosepak as prescribed today. Encouraged to get plenty of rest, use his wrist brace while awake, and use Tylenol or Ibuprofen (unless contraindicated) for comfort. Patient also educated on other symptomatic management techniques. To be seen in 2 weeks. Patient verbalized understanding and agreement with all the above. 02/15/24 1406 Date [facility]: Date (if applicable) CC: Normal [facility] Wrist min 3 Viewson 02-15-20 Wrist min 3 Views [facility] Imaging Services [address] [place] [address] Wrist min 3 Views MR#: [id number] Acct: [id number] Name: BENJAMIN SHEPARD Rep #: [id number] : 1965 M 58 From: Gene magdaleno MD PCP: Dr. Juan Ramon Stapleton MD Status: [facility] Study: Wrist min 3 Views Date of Exam: 02/15/24 Exam# [id number] Ordering Dr: Chris Reed [id number] STUDY: X-RAY - RIGHT WRIST REASON FOR EXAM: Male, 58 years old. Pain following a recent fall. TECHNIQUE: 3 view(s) of the wrist were obtained. COMPARISON: None. FINDINGS: Normal visualized distal radius and ulna. Normal radiocarpal articulation. Normal distal radioulnar articulation. Normal carpal bones. Normal carpal articulations. Increased distance between the navicular and lunate bones. Ligamentous injury should be ruled out. Normal carpometacarpal articulation of the thumb. Normal second through fifth carpometacarpal articulations. Normal visualized metacarpal bones. Soft tissue swelling. RAD/Wrist min 3 Views IMPRESSION: Increased distance between the navicular bone and lunate bone suggestive of ligamentous injury. Soft tissue swelling. Electronically Signed: Gene Silva MD at 12:35 EDT , CC: CRISTIANO Hudson; Dr. Juan Ramon Stapleton MD Seed Buyer: Signed [facility] 01-28-2024 CNPN Telephone (FAMPWS) ----- BENJAMIN SHEPARD ([id number]) 1965 M Date Time Provider Department 01/28/24 JUAN RAMON STAPLETON [facility] During your visit today, we recorded the following information about you: Juan Ramon Stapleton MD 01/28/2024 7:23 PM Signed Let patient know his CT shows a fat containing hernia on the right. There is no mention of one on the left. However it may just not have any fat in it to see it. There was some thickening of the bladder wall that is none specific but can be seen in a urinary tract infection. The antibiotic I placed him on would cover this. Advise patient to give me the update in a few weeks like we discussed. Roseline Bell MA 01/29/2024 9:25 AM Signed Left message for patient to contact office. DEWEY Hidalgo Sherrie, RN 01/29/2024 10:22 AM Signed Patient returned call and given provider's message below and patient verbalized understanding. Sabrina Mann RN Allergies As of Date: 01/28/2024 Noted Allergy Reaction IBUPROFEN 12/07/2006 11 - Vomiting OMEPRAZOLE 11/19/2019 17 - Myalgia PREVACID (LANSOPRAZOLE) 11/19/2019 17 - Myalgia Date Reviewed: 01/28/2024 Reviewed by: Asmita Coronado, RT(R) - Fully Assessed Reason for Visit: Results [95] Prescriptions as of 01/29/2024 - azithromycin (ZITHROMAX) 500 mg tablet Take 2 tablets by mouth once daily. - levoFLOXacin (LEVAQUIN) 500 mg tablet Take 1 tablet by mouth once daily for 14 days. - famotidine (PEPCID) 40 mg tablet Take 1 tablet by mouth two times a day as needed. - sildenafil (VIAGRA) 50 mg tablet Take 1 tablet by mouth once daily. As needed Problem List As Of Date 01/28/2024 Noted Resolved GERD (gastroesophageal reflux disease) [K21.9] 10/13/2014 Well adult exam [Z00.00] 10/13/2014 Encounter for screening for diabetes mellitus [*10/23/2019 Hypertriglyceridemia [E78.1] 12/04/2019 Screening for prostate cancer [Z12.5] 08/25/2021 Screening for colon cancer [Z12.11] 08/25/2021 Hyperlipidemia, mixed [E78.2] 08/26/2021 Ex-smoker [Z87.891] 08/28/2022 Eczema [L30.9] 08/27/2023 Encounter Status:Closed by LETY MANN on 01/29/24 Normal [facility] CT PELVIS W IVCONon 01-28-20 CT PELVIS W IVCON * * *Final Report* * * DATE OF EXAM: Jan 28 2024 11:42AM [facility] 0555 - CT PELVIS W IVCON / PROCEDURE REASON: multiple diagnoses * * * * Physician Interpretation * * * * Examination: CT PELVIS W IVCON History: Inguinal pain of both sides Inguinal pain of both sides Lower abdominal pain Pain has had continued pain up into the inguinal canals on both sides for over a month now. Comparison: None TECHNIQUE: CT of the pelvis was performed using standard technique, scanning from the iliac crest to the symphysis pubis. MQ: CTAP_3 Contrast: IV: 100 ml of Omnipaque 350 Oral: 12 ml of Omni 240 10-25ml diluted with water CT Radiation dose: Integrated Dose-length product (DLP) for this visit = 431 mGy*cm. CT Dose Reduction Employed: Automated exposure control(AEC) and iterative recon RESULT: GI tract: No dilation or wall thickening. The appendix appears normal. Mild diverticulosis of the colon Lymph nodes: No pelvic lymphadenopathy. Mesentery/Peritoneum: No ascites or mass. Retroperitoneum: No mass. Vasculature: Lower aorta is unremarkable, where visualized Pelvis: No mass, ascites or fluid collection. Mild diffuse bladder wall thickening is a nonspecific abnormal finding Bones/Soft Tissues: Fat-containing right inguinal hernia Captain'S Assistant (topogram) images: No additional findings. IMPRESSION: No suspicious mass or adenopathy within the pelvis Mild diffuse bladder wall thickening is a nonspecific abnormal finding. This can be seen with cystitis. Diverticulosis of the colon. Fat-containing right inguinal hernia Seed Buyer: [facility] Transcribe Date/Time: Jan 28 2024 12:20P Dictated by : MORGAN DAUGHERTY MD This examination was interpreted and the report reviewed and electronically signed by: MORGAN DAUGHERTY MD on Jan 28 2024 12:36PM EST [id number] Normal [facility] CT Pelvis W contrast Alisa [facility] CNPNon 01-27-2024 [facility] ----- BENJAMIN SHEPARD ([id number]) 1965 M Date Time Provider Department 01/27/24 JUAN RAMON STAPLETON [facility] During your visit today, we recorded the following information about you: Juan Ramon Stapleton MD 01/27/2024 10:17 PM Signed Janelle Benjamin know his GC and Chlamydia tests were negative. Jessica Castillo LPN 01/28/2024 8:41 AM Signed Pt notified of same. Jessica Castillo LPN Allergies As of Date: 01/27/2024 Noted Allergy Reaction IBUPROFEN 12/07/2006 11 - Vomiting OMEPRAZOLE 11/19/2019 17 - Myalgia PREVACID (LANSOPRAZOLE) 11/19/2019 17 - Myalgia Date Reviewed: 01/25/2024 Reviewed by: Juan Ramon Stapleton MD - Fully Assessed Reason for Visit: Results [95] Prescriptions as of 01/28/2024 - azithromycin (ZITHROMAX) 500 mg tablet Take 2 tablets by mouth once daily. - levoFLOXacin (LEVAQUIN) 500 mg tablet Take 1 tablet by mouth once daily for 14 days. - famotidine (PEPCID) 40 mg tablet Take 1 tablet by mouth two times a day as needed. - sildenafil (VIAGRA) 50 mg tablet Take 1 tablet by mouth once daily. As needed Problem List As Of Date 01/27/2024 Noted Resolved GERD (gastroesophageal reflux disease) [K21.9] 10/13/2014 Well adult exam [Z00.00] 10/13/2014 Encounter for screening for diabetes mellitus [*10/23/2019 Hypertriglyceridemia [E78.1] 12/04/2019 Screening for prostate cancer [Z12.5] 08/25/2021 Screening for colon cancer [Z12.11] 08/25/2021 Hyperlipidemia, mixed [E78.2] 08/26/2021 Ex-smoker [Z87.891] 08/28/2022 Eczema [L30.9] 08/27/2023 Encounter Status:Closed by JESSICA CASTILLO on 01/28/24 Normal [facility] C. trachomatis+N. gonorrhoea e DNA MARIEL+probe Ql (Unsp spec)on 01-25-2024 C. trachomatis rRNA MARIEL+probe Ql (Unsp spec) Negative Normal Negative for Chlamydia trachomatis by amplificaton [facility] Comment on above: Order Comment: Speci men Type: URINE SPECIMENOrdering Facility: [facility] Address: [address] [place] [address] Performed By: #### 3 [id number] ####[facility] LABCLIA [id number] [place] [address] [place] N. gonorrhoeae rRNA MARIEL+probe Ql (Unsp spec) Negative Normal Negative for Neisseria gonorrhoeae by amplification [facility] Comment on above: Order Comment: Speci men Type: URINE SPECIMENOrdering Facility: [facility] Address: [address] [place] [address] Performed By: #### 3 [id number] ####[facility] LABGRACIELAIA [id number] [facility] [id number] [place], [place] [id number] [place] CNOVon 01-25-2024 CNOV Office Visit (FAMPWS ) ----- BENJAMIN SHEPARD ([id number]) 1965 M Date Time Provider Department 01/25/24 9:00 AM [facility] During your visit today, we recorded the following information about you: Pulse Respiration Blood pressure Weight 76/minute 16/minute 106/68 94.8 kg Juan Ramon Stapleton MD 01/25/2024 1:44 PM Signed Chief Complaint Patient presents with: Follow Up HPI Benjamin Shepard is a 58 year old male who presents here today for follow up. Patient is here for a follow up on groin pain. Patient was seen back on 07/11/2023 with c/o of bilateral groin pain. On exam he had discomfort with doing an inguinal check on both sides. Patient was placed on bactrim DS twice a day for 14 days. Patient seen 08/03/2023 for f/u and pain was resolved. At his [facility] on 08/27/2023 he also had no recurrence. He called the office on 12/14/2023 with recurrent pain and he was placed back on the bactrim. Patient still with discomfort bilaterally today but not as bad as it had been. Still goes up into the groin, Lt>Rt. Denies any skin sores in the groin, hematuria or pus with urination. Past medical history, appointments, medications, allergies reviewed. Previous Medical History PAST MEDICAL HISTORY Diagnosis Date Ex-smoker 08/28/2022 Quit 1998: smoed about a 1/4PPD for about 8 years. GERD (gastroesophageal reflux disease) 10/13/2014 Hyperlipidemia, mixed 08/26/2021 Hypertriglyceridemia 12/04/2019 sleep study 2008 negative for sleep apnea Well adult exam 10/13/2014 Last done 08/28/2022 Previous Surgical History PAST SURGICAL HISTORY Procedure Laterality Date 2D ECHO COMPLETE INP 11/11/2014 EF= 58% no abnornalities COLONOSCOPY FLX DX W/COLLJ SPEC WHEN PFRMD 05/24/2009 Colonoscopy, repeat 5 yrs (dad with colon CA) KNEE ARTHROSCOP MENISCUS REPAIR MED/LAT Right 02/10/2021 PAST SURGICAL HISTORY OF 08/12/2003 varicose Veins PAST SURGICAL HISTORY OF 08/12/2003 bloodclot removal Family History FAMILY HISTORY Problem Relation Age of Onset Colon Cancer Father 70 or 71 Colon Cancer Maternal Aunt Colon Cancer Maternal Grandmother stomach or colon Heart Maternal Uncle pace maker Coronary Artery Disease Maternal Uncle 50's Diabetes Maternal Aunt Stroke Maternal Grandfather Patient Allergies ALLERGIES Allergen Reactions Ibuprofen Vomiting Omeprazole Myalgia Prevacid [Lansopraz* Myalgia Current Medications Current Outpatient Medications on File Prior to Visit Medication Sig famotidine (PEPCID) 40 mg tablet Take 1 tablet by mouth two times a day as needed. sildenafil (VIAGRA) 50 mg tablet Take 1 tablet by mouth once daily. As needed No current facility-administered medications on file prior to visit. Social History Social History Tobacco Use Smoking status: Former Packs/day: 0.25 Years: 8.00 Additional pack years: 0.00 Total pack years: 2.00 Types: Cigarettes Smokeless tobacco: Former Types: Chew Vaping Use Vaping Use: Never used Substance Use Topics Alcohol use: Yes Comment: weekends Drug use: No Review of Symptoms REVIEW OF SYSTEMS See HPI EXAM: BP 106/68 (BP Site: Left Arm, BP Position: Sitting, BP Cuff Size: Regular Adult) Pulse 76 Resp 16 Wt 94.8 kg (209 lb) BMI 33.23 kg/m? General Appearance: Well appearing, alert, in no acute distress, well-hydrated, well nourished.. Genitalia: Normal except for discomfort over the epididymis and vas def on both sides but Lt>Rt. Has discomfort up into the inguinal canal but no bulge appreciated. . Health Maintenance List Hepatitis B Vaccine(1 of 3 - 19+ 3-dose series) Never done Shingrix Vaccine(1 of 2) Never done Depression Assessment due on 11/12/2023 Covid-19 Vaccine(2022- season) due on 08/27/2024 Colorectal Cancer Screening due on 08/29/2024 Diabetes Screening due on 08/29/2026 DTaP,Tdap,Td Vaccine(3 - Td or Tdap) due on 12/19/2026 Lipid Screening due on 08/29/2028 Prostate Cancer Screening Discussion due on 08/29/2028 Hepatitis C Screening Completed Influenza Vaccine Discontinued HIV Screening Discontinued Data reviewed A/P ASSESSMENT/PLAN: 1. Epididymitis, bilateral - ICD9: 604.90, ICD10: N45.1 (primary diagnosis) Check - GONORRHEA/CHLAMYDIA NAAT Will place on Zithromax 1000 mg times one along with Levaquin 500 mg a day for 14 days. 2. Inguinal pain of both sides - ICD9: 789.03, 789.04, ICD10: R10.31, R10.32 Check - GONORRHEA/CHLAMYDIA NAAT - CT PELVIS W IVCON - IV CONTRAST (RADIOLOGY PROCEDURE) - ENTERIC CONTRAST (RADIOLOGY PROCEDURE) 3. Lower abdominal pain - ICD9: 789.09, ICD10: R10.30 Check - CT PELVIS W IVCON - IV CONTRAST (RADIOLOGY PROCEDURE) - ENTERIC CONTRAST (RADIOLOGY PROCEDURE) Requested Prescriptions Signed Prescriptions Disp Refills iv contrast (will be provided with radiology test) 1 Each 0 Sig: CT PELVIS W -Inject, (more content not included)... Normal [facility] [place] 12-14-2023 [facility] Telephone (BENITA) ----- BENJAMIN SHEPARD ([id number]) 1965 M Date Time Provider Department 12/14/23 JUAN RAMON STAPLETON During your visit today, we recorded the following information about you: Renata Lopez LPN 12/14/2023 10:59 AM Addendum Pt called in to let you know he is having the same symptoms as before on 07-11-23 when he was seen. Pain in the testicles x 2 to 3 days. Pt was given an ATB Bactrim DS and this took care of it. When he came back in for follow up 08/03/23 pain was gone. Pt asking the followin)Requesting the Bactrim Ds be sent to his pharmacy ([facility]) 2)Any reason this came back? 3)Advise pt on above. Can leave a detailed message because pt is at a service. TOMER Shelton Jeffrey A, MD 12/14/2023 11:12 AM Signed Let patient know I sent in a refill on the bactrium. Without seeing him I can not verify it is 100% the same issue. He needs a f/u with me in 3 weeks to re-eval the testicular pain. If not better the next step will be to see urology. The following approved medication requests have been transmitted electronically. Requested Prescriptions Signed Prescriptions Disp Refills sulfamethoxazole-trimetho prim (BACTRIM DS) 800-160 mg per tablet 28 tablet 0 Sig: Take 1 tablet by mouth two times a day for 14 days. Authorizing Provider: JUAN RAMON STAPLETON MD Hambel, Sherill A, LPN 12/14/2023 11:52 AM Signed Pt notified of Dr Stapleton's message and instructions. Pt verbalizes understanding. 3 week f/u appointment scheduled at this time. Pt aware of same. Jessica Castillo LPN Allergies As of Date: 12/14/2023 Noted Allergy Reaction IBUPROFEN 12/07/2006 11 - Vomiting OMEPRAZOLE 11/19/2019 17 - Myalgia PREVACID (LANSOPRAZOLE) 11/19/2019 17 - Myalgia Date Reviewed: 08/27/2023 Reviewed by: Juan Ramon Stapleton MD - Fully Assessed Reason for Visit: requesting medication [Other] Order(s):sulfamethoxazole -trimethoprim (BACTRIM DS) 800-160 mg per tabletTake 1 tablet by mouth two times a day for 14 days.Disp: 28 tabletRfl: 0 Prescriptions as of 12/14/2023 - sulfamethoxazole-trimetho prim (BACTRIM DS) 800-160 mg per tablet Take 1 tablet by mouth two times a day for 14 days. - famotidine (PEPCID) 40 mg tablet Take 1 tablet by mouth two times a day as needed. - sildenafil (VIAGRA) 50 mg tablet Take 1 tablet by mouth once daily. As needed Problem List As Of Date 12/14/2023 Noted Resolved GERD (gastroesophageal reflux disease) [K21.9] 10/13/2014 Well adult exam [Z00.00] 10/13/2014 Encounter for screening for diabetes mellitus [*10/23/2019 Hypertriglyceridemia [E78.1] 12/04/2019 Screening for prostate cancer [Z12.5] 08/25/2021 Screening for colon cancer [Z12.11] 08/25/2021 Hyperlipidemia, mixed [E78.2] 08/26/2021 Ex-smoker [Z87.891] 08/28/2022 Eczema [L30.9] 08/27/2023 Prescriptions ordered this encounter Disp Refills Start End SULFAMETHOXAZOLE 800 MG-TRIMETHOPRIM* 28 t* 0 12/14/2023 12/28/2023 Route: ORAL Sig: Take 1 tablet by mouth two times a day for 14 days. Medications Discontinued During This Encounter Prescriptions - sulfamethoxazole-trimetho prim (BACTRIM DS) 800-160 mg per tablet (Discontinued) Take 1 tablet by mouth twice daily for 14 days. Encounter Status:Closed by JESSICA CASTILLO on 12/14/23 Normal [facility] UA DIP, URINE (POC)on 2021 BILIRUBIN UA (POCT) Negative Negative [facility] CLARITY UA (POCT) Clear [facility] COLOR UA (POCT) Yellow [facility] GLUCOSE UA (POCT) Negative Negative mg/dL [facility] HEMOGLOBIN/BLOOD UA (POCT) Negative Negative [facility] KETONE UA (POCT) Negative Negative mg/dL [facility] LEUKOCYTES UA (POCT) Negative Negative [facility] NITRITE UA (POCT) Negative Negative [facility] PH UA (POCT) 5.5 4.5 - 8.0 [facility] Protein Ql (U) Negative Negative mg/dL [facility] SPECIFIC GRAVITY UA (POCT) >=1.030 1.005 - 1.030 [facility] UROBILINOGEN UA (POCT) 0.2 E.U./dL Normal E.U./dL [facility] Vital Signs Date Time Vital Sign Value Performing Clinician Facility 04-27-2025 14:52-0400 Body temperature 98.3 [degF] Dr. Juan Ramon Stapleton MD Work Phone: [phone] [place] [address] 04-27-2025 14:52-0400 Diastolic blood pressure 70 mm[Hg] Dr. Juan Ramon Stapleton MD Work Phone: [phone] [place] [address] 04-27-2025 14:52-0400 Heart rate 69 /min Dr. Juan Ramon Stapleton MD Work Phone: [phone] [place] [address] 04-27-2025 14:52-0400 Respiratory rate 18 /min Dr. Juan Ramon Stapleton MD Work Phone: [phone])[phone] [place] [address] 04-27-2025 14:52-0400 SaO2% (BldA) [Mass fraction] 98 % Dr. Juan Ramon Stapleton MD Work Phone: [phone])[phone] [place] [address] 04-27-2025 14:52-0400 Systolic blood pressure 139 mm[Hg] Dr. Juan Ramon Stapleton MD Work Phone: 3(466)[phone] [place] [address] 04-27-2025 11:46-0400 Body height 170.[address] Juan Ramon Stapleton MD Work Phone: [phone])[phone] [place] [address] 04-27-2025 11:46-0400 Body mass index (BMI) [Ratio] 32.7 kg/m2 Dr. Juan Ramon Stapleton MD Work Phone: [phone])[phone] [place] [address] 04-27-2025 11:46-0400 Body weight 94.[address] Juan Ramon Stapleton MD Work Phone: 7(757)245-874650 [place] [address] 09-18-2024 08:22-0500 Body mass index (BMI) [Ratio] 34.35 kg/m2 Jas Myrick MD Work Phone: [phone])[phone] [place] [address] 09-18-2024 08:22-0500 Body temperature 97 [degF] Jas Myrick MD Work Phone: [phone] [place] [address] 09-18-2024 08:22-0500 Body weight 98 kg Jas Myrick MD Work Phone: [phone])[phone] [place] [address] 09-18-2024 08:22-0500 Diastolic blood pressure 71 mm[Hg] Jas Myrick MD Work Phone: [facility] 09-18-2024 08:22-0500 Heart rate 77 /min Jas Myrick MD Work Phone: [facility] 09-18-2024 08:22-0500 Respiratory rate 20 /min Jas Myrick MD Work Phone: [facility] 09-18-2024 08:22-0500 SaO2% (BldA) [Mass fraction] 98 % Jas Myrick MD Work Phone: [facility] 09-18-2024 08:22-0500 Systolic blood pressure 104 mm[Hg] Jas Myrick MD Work Phone: [facility] 08-28-2024 08:06-0400 Body height 168.9 cm Juan Ramon Stapleton MD Work Phone: [facility] 08-28-2024 08:06-0400 Body mass index (BMI) [Ratio] 33.58 kg/m2 Juan Ramon Stapleton MD Work Phone: [facility] 08-28-2024 08:06-0400 Body weight 95.8 kg Juan Ramon Stapleton MD Work Phone: [facility] 08-28-2024 08:06-0400 Diastolic blood pressure 74 mm[Hg] Juan Ramon Stapleton MD Work Phone: [facility] 08-28-2024 08:06-0400 Heart rate 74 /min Juan Ramon Stapleton MD Work Phone: [facility] 08-28-2024 08:06-0400 Systolic blood pressure 122 mm[Hg] Juan Ramon Stapleton MD Work Phone: [facility] 02-15-2024 11:37-0400 Body height 172.[address] Juan Ramon Stapleton Work Phone: [facility] 02-15-2024 11:37-0400 Body mass index (BMI) [Ratio] 32.3 kg/m2 Dr. Juan Ramon Stapleton Work Phone: [facility] 02-15-2024 11:37-0400 Body temperature 98.2 [degF] Dr. Juan Ramon Stapleton Work Phone: [facility] 02-15-2024 11:37-0400 Body weight 96.[address] Juan Ramon Stapleton Work Phone: [facility] 02-15-2024 11:37-0400 Diastolic blood pressure 68 mm[Hg] Dr. Juan Ramon Stapleton Work Phone: [facility] 02-15-2024 11:37-0400 Heart rate 79 /min Dr. Juan Ramon Stapleton Work Phone: [facility] 02-15-2024 11:37-0400 Respiratory rate 17 /min Dr. Juan Ramon Stapleton Work Phone: [phone] [place] [address] 02-15-2024 11:37-0400 SaO2% (BldA) [Mass fraction] 98 % Dr. Juan Ramon Stapleton Work Phone: [facility] 02-15-2024 11:37-0400 Systolic blood pressure 130 mm[Hg] Dr. Juan Ramon Stapleton Work Phone: [facility] 01-25-2024 09:02-0400 Body weight 94.8 kg Juan Ramon Stapleton MD Work Phone: [facility] 01-25-2024 09:02-0400 Diastolic blood pressure 68 mm[Hg] Juan Ramon Stapleton MD Work Phone: [facility] 01-25-2024 09:02-0400 Heart rate 76 /min Juan Ramon Stapleton MD Work Phone: [facility] 01-25-2024 09:02-0400 Respiratory rate 16 /min Juan Ramon Stapleton MD Work Phone: [facility] 01-25-2024 09:02-0400 Systolic blood pressure 106 mm[Hg] Juan Ramon Stapleton MD Work Phone: [facility] 08-27-2023 14:14-0400 Body weight 96.62 kg Juan Ramon Stapleton MD Work Phone: [facility] 08-27-2023 14:14-0400 Diastolic blood pressure 64 mm[Hg] Juan Ramon Stapleton MD Work Phone: [facility] 08-27-2023 14:14-0400 Heart rate 84 /min Juan Ramon Stapleton MD Work Phone: [facility] 08-27-2023 14:14-0400 Respiratory rate 16 /min Juan Ramon Stapleton MD Work Phone: [facility] 08-27-2023 14:14-0400 Systolic blood pressure 108 mm[Hg] Juan Ramon Stapleton MD Work Phone: [facility] 07-11-2023 10:14-0400 Body weight 96.16 kg Juan Ramon Stapleton MD Work Phone: [facility] 07-11-2023 10:14-0400 Diastolic blood pressure 64 mm[Hg] Juan Ramon Stapleton MD Work Phone: [facility] 07-11-2023 10:14-0400 Heart rate 80 /min Juan Ramon Stapleton MD Work Phone: [facility] 07-11-2023 10:14-0400 Respiratory rate 16 /min Juan Ramon Stapleton MD Work Phone: [facility] 07-11-2023 10:14-0400 Systolic blood pressure 112 mm[Hg] Juan Ramon Stapleton MD Work Phone: [facility] 08-28-2022 14:22-0400 Body height 168.9 cm Juan Ramon Stapleton MD Work Phone: [facility] 08-28-2022 14:22-0400 Body weight 94.35 kg Juan Ramon Stapleton MD Work Phone: [facility] 08-28-2022 14:22-0400 Diastolic blood pressure 68 mm[Hg] Juan Ramon Stapleton MD Work Phone: [facility] 08-28-2022 14:22-0400 Heart rate 88 /min Juan Ramon Stapleton MD Work Phone: [facility] 08-28-2022 14:22-0400 Respiratory rate 16 /min Juan Ramon Stapleton MD Work Phone: [facility] 08-28-2022 14:22-0400 Systolic blood pressure 112 mm[Hg] Juan Ramon Stapleton MD Work Phone: [facility] 03-13-2022 14:54-0400 Body temperature 98.71 [degF] NA Wesley PA-C Work Phone: [facility] 03-13-2022 14:54-0400 Body weight 98.43 kg NA Wesley PA-C Work Phone: [facility] 03-13-2022 14:54-0400 Diastolic blood pressure 68 mm[Hg] NA Wesley PA-C Work Phone: [facility] 03-13-2022 14:54-0400 Heart rate 91 /min NA Wesley PA-C Work Phone: [facility] 03-13-2022 14:54-0400 Respiratory rate 16 /min NA Wesley PA-C Work Phone: [facility] 03-13-2022 14:54-0400 SaO2% (BldA) [Mass fraction] 96 % NA Wesley PA-C Work Phone: [facility] 03-13-2022 14:54-0400 Systolic blood pressure 110 mm[Hg] NA Wesley PA-C Work Phone: [facility] Encounters Encounter Date Encounter Type Care Provider Facility Start: 04-27-2025 End: 04-27-2025 ambulatory Juan Ramon Stapleton MD Work Phone: [facility] Start: 04-27-2025 End: 04-27-2025 Patient encounter procedure Juan Ramon Stapleton MD Work Phone: [facility] Comment on above: Appointment Start: 04-27-2025 End: 04-27-2025 Emergency department patient visit Dr. Juan Ramon Stapleton MD Work Phone: -Emergency Department Work Phone: Start: 09-18-2024 End: 09-18-2024 ambulatory JUAN RAMON STAPLETON Facility:[facility] Start: 09-18-2024 End: 09-18-2024 Office outpatient visit 15 minutes Jas Myrick MD Work Phone: [facility] Comment on above: URI, acute (Primary Dx); Acute cough Start: 08-28-2024 End: 09-02-2024 Telephone encounter Juan Ramon Stapleton MD Work Phone: [facility] Comment on above: Results Start: 08-28-2024 Encounter for genera l adult medical examination without abnormal findings JUAN RAMON STAPLETON [facility] Start: 08-28-2024 End: 08-28-2024 Patient encounter procedure Juan Ramon Stapleton MD Work Phone: [facility] Comment on above: Well adult exam (Linette marquise Dx); Hyperlipidemia, mixed; Hypertriglyceridemia; Gastroesophageal reflux disease without esophagitis; Need for hepatitis B screening test; Need for vaccination; Encounter for screening for diabetes mellitus; Screening for colon cancer; Screening for prostate cancer; Family hx of colon cancer; Bloating Start: 08-28-2024 End: 08-28-2024 Patient encounter status Juan Ramon Stapleton MD Work Phone: [facility] Work Phone: Start: 08-28-2024 End: 08-28-2024 ambulatory JUAN RAMON STAPLETON Facility:[facility] Start: 08-19-2024 End: 08-20-2024 Refill Juan Ramon Stapleton MD Work Phone: [facility] Comment on above: Refill Request Start: 05-09-2024 Refill Juan Ramon junior MD Work Phone: [facility] Comment on above: Refill Request (Need s today) Start: 02-29-2024 End: 02-29-2024 ambulatory Juan Ramon Stapleton Facility:[facility] Start: 02-18-2024 Chart abstracting Octavia Leslie LPN [facility] Comment on above: External Imaging / W rist XRay Start: 02-15-2024 End: 02-15-2024 ambulatory Chris QUINONEZ Facility:[facility] Start: 02-15-2024 End: 02-15-[address] Juan Ramon Stapleton Work Phone: [facility] Work Phone: Start: 02-15-2024 End: 02-15-[address] Juan Ramon Stapleton Work Phone: [facility] Work Phone: Start: 02-01-2024 ambulatory Juan Ramon junior MD Work Phone: [facility] Comment on above: Calf Pain Start: 01-28-2024 Telephone encounter Juan Ramon Stapleton MD Work Phone: [facility] Comment on above: Results Start: 01-28-2024 End: 01-28-2024 ambulatory JUAN RAMON STAPLETON Facility:[facility] Start: 01-28-2024 End: 01-28-2024 Subsequent [facility] Comment on above: Inguinal pain of bot h sides [R10.31, R10.32] Start: 01-27-2024 Telephone encounter Juan Ramon Stapleton MD Work Phone: [facility] Comment on above: Results Start: 01-25-2024 End: 01-25-2024 ambulatory JUAN RAMON STAPLETON Facility:[facility] Start: 01-25-2024 End: 01-25-2024 Patient encounter procedure Juan Ramon Stapleton MD Work Phone: [facility] Comment on above: Epididymitis, bilate ral (Primary Dx); Inguinal pain of both sides; Lower abdominal pain Start: 12-14-2023 Telephone encounter Juan Ramon Stapleton MD Work Phone: [facility] Comment on above: requesting medicatio n Start: 08-27-2023 End: 08-27-2023 Patient encounter procedure Juan Ramon Stapleton MD Work Phone: [facility] Comment on above: Well adult exam (Linette marquise Dx); Hyperlipidemia, mixed; Hypertriglyceridemia; Gastroesophageal reflux disease without esophagitis; Screening for colon cancer; Encounter for screening for diabetes mellitus; Screening for prostate cancer; Nausea; Bloating; Eczema, unspecified type Start: 08-27-2023 End: 08-27-2023 Patient encounter status Juan Ramon Stapleton MD Work Phone: [facility] Work Phone: Start: 07-11-2023 Telephone encounter Juan Ramon Stapleton MD Work Phone: [facility] [place] Start: 07-11-2023 End: 07-11-2023 Patient encounter procedure Juan Ramon Stapleton MD Work Phone: [facility] Comment on above: Epididymitis, bilate ral (Primary Dx) Start: 01-23-2023 Refill Juan Ramon junior MD Work Phone: [facility] Comment on above: Refill Request Start: 08-29-2022 Telephone encounter Juan Ramon Stapleton MD Work Phone: [facility] Comment on above: Results Start: 08-28-2022 End: 08-28-2022 Patient encounter procedure Juan Ramon Stapleton MD Work Phone: [facility] Comment on above: Well adult exam (Linette marquise Dx); Hyperlipidemia, mixed; Hypertriglyceridemia; Gastroesophageal reflux disease without esophagitis; Ex-smoker; Screening for colon cancer; Screening for prostate cancer; Encounter for screening for diabetes mellitus Start: 08-28-2022 End: 08-28-2022 Patient encounter status Juan Ramon Stapleton MD Work Phone: [facility] [place] Start: 08-09-2022 Refill Juan Ramon junior MD Work Phone: [facility] Comment on above: Refill Request Start: 06-26-2022 Refill Juan Ramon junior MD Work Phone: [facility] Comment on above: Refill Request Start: 05-10-2022 Refill Juan Ramon junior MD Work Phone: [facility] Comment on above: Refill Request Start: 03-29-2022 Refill Juan Ramon junior MD Work Phone: [facility] Comment on above: Prescription Refills Start: 03-14-2022 Telephone encounter Stanley Dmitriy Wesley PA-C Work Phone: [facility] Comment on above: Patient Question Start: 03-13-2022 End: 03-13-2022 Patient encounter procedure Stanley Dmitriy Wesley PA-C Work Phone: [facility] Comment on above: Left lower quadrant abdominal pain Start: 03-13-2022 ambulatory Katiuska black RN [employer] Comment on above: Abdominal Pain Start: 02-07-2022 Refill Juan Ramon junior MD Work Phone: [facility] Comment on above: Refill Request Start: 08-25-2021 Patient encounter status Tien Stapleton MD Work Phone: [facility] Work Phone: Procedures Date Procedure Procedure Detail Performing Clinician Start: 04-27-2025 Urnls dip stick/tabl et reagent auto microscopy Dr. Juan Ramon Stapleton MD Work Phone: Start: 04-27-2025 Ultrasound of scrotu m with Doppler and color flow imaging Dr. Juan Ramon Stapleton MD Work Phone: Start: 08-28-2024 Lipid 1995 panel - S jesica or Plasma Juan Ramon Stapleton MD Work Phone: Start: 02-15-2024 Plain x-ray of wrist Dr Doug Stapleton Work Phone: Start: 01-28-2024 Ct pelvis w/contrast material Juan Ramon Stapleton MD Work Phone: Start: 08-29-2023 Lipid 1995 panel - S jesica or Plasma Juan Ramon Stapleton MD Work Phone: Start: 08-28-2022 Lipid 1995 panel - S jesica or Plasma Juan Ramon Stapleton MD Work Phone: Start: 03-13-2022 Urnls dip stick/tabl et rgnt auto w/o microscopy Stanley Dmitriy Wesley PA-C Work Phone: Start: 08-25-2021 Adult depression scr eening assessment Juan Ramon Stapleton MD Work Phone: Start: 05-24-2009 Colonoscopy Juan Ramon rodrigues MD Work Phone: Plan of Treatment Date Care Activity Detail Author Start: 08-28-2029 Lipid panel Lipid Screening [facility] Start: 08-28-2029 Prostate specific antigen measurement Prostate Cancer Screening Discussion [facility] Start: 08-29-2028 Lipid panel Lipid Screening [facility] Start: 08-29-2028 Prostate specific antigen measurement Prostate Cancer Screening Discussion [facility] Start: 08-28-2027 Diabetes Screening Diabetes Screening [facility] Start: 08-28-2027 Lipid 1996 panel - Serum or Plasma Lipid Screening [facility] Start: 08-28-2027 LIPID SCREEN LIPID SCREEN [facility] Start: 08-28-2027 PROSTATE CANCER SCREENING DISCUSSION PROSTATE CANCER SCREENING DISCUSSION [facility] Start: 12-19-2026 Urine microalbumin profile [facility] Start: 08-29-2026 Diabetes Screening Diabetes Screening [facility] Start: 08-25-2026 LIPID SCREEN LIPID SCREEN [facility] Start: 08-28-2025 Anxiety Screening Anxiety Screening [facility] Comment on above: Postponed from 1985 (Declined at t his time) Start: 08-28-2025 DIABETES SCREEN DIABETES SCREEN [facility] Start: 08-28-2025 Diabetes Screening Diabetes Screening [facility] Start: 08-28-2025 Shingrix Vaccine (1 of 2) Shingrix Vaccine (1 of 2) [facility] Comment on above: Postponed from 2017 (Declined at t his time) Start: 08-28-2025 End: 08-28-2025 Patient encounter procedure [facility] Comment on above: Yearly PE Start: 04-27-2025 End: 04-27-2025 [facility] Start: 03-13-2025 DIABETES SCREEN DIABETES SCREEN [facility] Start: 12-03-2024 End: 03-04-2025 Hepatic function 2000 panel - Serum or Plasma HEPATIC FUNCTION PNL Lab Routine Hyperlipidemia, mixed Expected: 12/03/2024, Expires: 03/04/2025 [facility] Comment on above: Expected: 12/03/2024, Expires: Start: 12-03-2024 End: 03-04-2025 LIPID PANEL, NONFASTING LIPID PANEL, NONFASTING Lab Routine Hyperlipidemia, mixed Expected: 12/03/2024, Expires: 03/04/[address] [facility] Work Phone: Comment on above: Expected: 12/03/2024, Expires: Start: 08-29-2024 Screening for malignant neoplasm of colon [facility] Start: 08-28-2024 End: 11-27-2024 Comprehensive metabolic 2000 panel - Serum or Plasma [facility] Comment on above: Expected: 08/28/2024, Expires: Start: 08-28-2024 Depression Screening Depression Screening [facility] Comment on above: Postponed from 1985 (Declined at t his time) Start: 08-28-2024 End: 11-27-2024 Hemoglobin A1c in Blood [facility] Comment on above: Expected: 08/28/2024, Expires: Start: 08-28-2024 End: 11-27-2024 Hepatitis B virus surface Ab [Presence] in Serum [facility] Work Phone: Comment on above: Expected: 08/28/2024, Expires: Start: 08-28-2024 End: 11-27-2024 LIPID PANEL, NONFASTING [facility] Comment on above: Expected: 08/28/2024, Expires: Start: 08-28-2024 End: 11-27-2024 Prostate specific Ag [Mass/volume] in Serum or Plasma [facility] Comment on above: Expected: 08/28/2024, Expires: Start: 08-28-2024 End: 11-27-2024 Urinalysis complete panel - Urine URINALYSIS, WITH MICROSCOPIC Lab Routine Hyperlipidemia, mixed Expected: 08/28/2024, Expires: 11/27/2024 [facility] Comment on above: Expected: 08/28/2024, Expires: Start: 08-28-2024 End: 08-28-2024 Patient encounter procedure 08/28/2024 8:00 AM EDT Office Visit [facility] [address] [place] [address] Juan Ramon Stapleton MD [address] [place], [place] [id number] physical [facility] Comment on above: physical Start: 08-27-2024 Covid-19 Vaccine () Covid-19 Vaccine () [facility] Comment on above: Postponed from 07/13/2023 (Declined at t his time) Start: 08-25-2024 DIABETES SCREEN DIABETES SCREEN [facility] Start: 07-13-2024 Covid-19 Vaccine () Covid-19 Vaccine () [facility] Start: 11-12-2023 Behavioral Health Screening Behavioral Health Screening [facility] Start: 11-12-2023 Depression Assessment Depression Assessment [facility] Start: 11-11-2023 Depression Assessment Depression Assessment [facility] Comment on above: Postponed from 11/12/2022 (Declined at t his time) Start: 08-28-2023 HEPATITIS B (1 of 3 - 3-dose series) HEPATITIS B (1 of 3 - 3-dose series) [facility] Comment on above: Postponed from 1967 (Declined at t his time) Start: 08-28-2023 Hepatitis B Vaccine (1 of 3 - 3-dose series) Hepatitis B Vaccine (1 of 3 - 3-dose series) [facility] Comment on above: Postponed from 1967 (Declined at t his time) Start: 08-28-2023 SHINGRIX VACCINE (1 of 2) SHINGRIX VACCINE (1 of 2) [facility] Comment on above: Postponed from 2017 (Insurance Cov erage) Start: 08-27-2023 End: 10-27-2023 Comprehensive metabolic 2000 panel - Serum or Plasma COMP METABOLIC PANEL Lab Routine Hyperlipidemia, mixed Hypertriglyceridemia Expected: 08/27/2023, Expires: 10/27/[address] [facility] Work Phone: Comment on above: Expected: 08/27/2023, Expires: Start: 08-27-2023 End: 10-27-2023 Helicobacter pylori IgG Ab [Presence] in Serum or Plasma by Immunoassay H PYLORI IGG AB Lab Routine Gastroesophageal reflux disease without esophagitis Nausea Bloating Expected: 08/27/2023, Expires: 10/27/[address] [facility] Work Phone: Comment on above: Expected: 08/27/2023, Expires: 3 Start: 08-27-2023 End: 10-27-2023 Hemoglobin A1c in Blood HGB A1C Lab Routine Well adult exam Encounter for screening for diabetes mellitus Expected: 08/27/2023, Expires: 10/27/[address] [facility] Work Phone: Comment on above: Expected: 08/27/2023, Expires: Start: 08-27-2023 End: 10-27-2023 LIPID PANEL, NONFASTING LIPID PANEL, NONFASTING Lab Routine Hyperlipidemia, mixed Hypertriglyceridemia Expected: 08/27/2023, Expires: 10/27/[address] [facility] Work Phone: Comment on above: Expected: 08/27/2023, Expires: 3 Start: 08-27-2023 End: 10-27-2023 Prostate specific Ag [Mass/volume] in Serum or Plasma PSA/PROSTSPECAG DIAG Lab Routine Well adult exam Screening for prostate cancer Expected: 08/27/2023, Expires: 10/27/[address] [facility] Work Phone: Comment on above: Expected: 08/27/2023, Expires: 3 Start: 08-27-2023 End: 10-27-2023 Urinalysis complete panel - Urine URINALYSIS, WITH MICROSCOPIC Lab Routine Hyperlipidemia, mixed Hypertriglyceridemia Expected: 08/27/2023, Expires: 10/27/[address] [facility] Work Phone: Comment on above: Expected: 08/27/2023, Expires: 3 Start: 11-12-2022 DEPRESSION ASSESSMENT DEPRESSION ASSESSMENT [facility] Start: 09-28-2022 COLORECTAL CANCER SCREENING COLORECTAL CANCER SCREENING [facility] Start: 09-28-2022 FECAL OCCULT BLOOD FECAL OCCULT BLOOD [facility] Start: 08-28-2022 End: 10-28-2022 Comprehensive metabolic 2000 panel - Serum or Plasma [facility] Work Phone: Comment on above: Expected: 08/28/2022, Expires: 2 Start: 08-28-2022 End: 10-28-2022 Hemoglobin A1c in Blood [facility] Work Phone: Comment on above: Expected: 08/28/2022, Expires: 2 Start: 08-28-2022 End: 10-28-2022 LIPID PANEL, NONFASTING [facility] Work Phone: Comment on above: Expected: 08/28/2022, Expires: 2 Start: 08-28-2022 End: 10-28-2022 Prostate specific Ag [Mass/volume] in Serum or Plasma [facility] Work Phone: Comment on above: Expected: 08/28/2022, Expires: 2 Start: 08-28-2022 End: 10-28-2022 Urinalysis complete panel - Urine [facility] Work Phone: Comment on above: Expected: 08/28/2022, Expires: 2 Start: 08-25-2022 Adult depression screening assessment DEPRESSION SCREENING [facility] Start: 07-13-2022 Influenza vaccination [facility] Start: 05-11-2022 Influenza vaccination INFLUENZA (#1) [facility] Comment on above: Postponed from 07/13/2021 (Declined at t his time) Start: 03-13-2022 End: 05-13-2022 C reactive protein [Mass/volume] in Serum or Plasma [facility] Work Phone: Comment on above: Expected: 03/13/2022, Expires: 2 Start: 03-13-2022 End: 05-13-2022 CBC W Auto Differential panel - Blood [facility] Work Phone: Comment on above: Expected: 03/13/2022, Expires: 2 Start: 03-13-2022 End: 05-13-2022 Comprehensive metabolic 2000 panel - Serum or Plasma [facility] Work Phone: Comment on above: Expected: 03/13/2022, Expires: 2 Start: 03-13-2022 End: 05-13-2022 Lipase [Enzymatic activity/volume] in Serum or Plasma [facility] Work Phone: Comment on above: Expected: 03/13/2022, Expires: 2 Start: 11-12-2021 DEPRESSION ASSESSMENT DEPRESSION ASSESSMENT [facility] Start: 07-30-2021 COVID-19 VACCINE (3 - Booster for Pfizer series) COVID-19 VACCINE (3 - Booster for Pfizer series) [facility] Start: 04-24-2021 COVID-19 VACCINE (3 - Booster for Pfizer series) COVID-19 VACCINE (3 - Booster for Pfizer series) [facility] Start: 04-24-2021 COVID-19 VACCINE (3 - Pfizer series) COVID-19 VACCINE (3 - Pfizer series) [facility] Start: 12-21-2020 Urine microalbumin profile DTAP,TDAP,TD (2 - Td or Tdap) [facility] Start: 2017 Pneumococcal Vaccine: 50+ (1 of 1 - PCV) Pneumococcal Vaccine: 50+ (1 of 1 - PCV) [facility] Start: 2017 SHINGRIX VACCINE (1 of 2) SHINGRIX VACCINE (1 of 2) [facility] Start: 2012 COLOGUARD (FIT-DNA) COLOGUARD (FIT-DNA) [facility] Start: 2012 Colonoscopy COLONOSCOPY [facility] Start: [address] COLONOGRAPHY [facility] Start: 2012 Screening for malignant neoplasm of colon [facility] Start: 2012 SIGMOIDOSCOPY SIGMOIDOSCOPY [facility] Start: 1986 Hepatitis B Vaccine (1 of 3 - 19+ 3-dose series) Hepatitis B Vaccine (1 of 3 - 19+ 3-dose series) [facility] Start: 1985 Anxiety Screening Anxiety Screening [facility] Start: 1985 Depression Screening Depression Screening [facility] Start: 1967 HEPATITIS B (1 of 3 - 3-dose series) HEPATITIS B (1 of 3 - 3-dose series) [facility] Start: 1967 Hepatitis B Vaccine (1 of 3 - 3-dose series) Hepatitis B Vaccine (1 of 3 - 3-dose series) [facility] Chlamydia trachomatis+Neisseria gonorrhoeae DNA [Presence] in Unspecified specimen by MARIEL with probe detection GONORRHEA/CHLAMYDIA NAAT Lab Routine Epididymitis, bilateral Inguinal pain of both sides 01/25/2024 10:33 AM EDT [facility] Work Phone: End: 04-12-2023 Ct abdomen & pelvis w/o contrast material CT ABD/PEL WO IVCON Radiology STAT Left lower quadrant abdominal pain 1 Occurrences starting 03/13/2022 until 04/12/[address] [facility] Work Phone: Comment on above: 1 Occurrences starting 03/13/2022 until 04/12/2023 End: 02-23-2025 CT Pelvis W contrast IV CT PELVIS W IVCON Radiology Routine Inguinal pain of both sides Lower abdominal pain 1 Occurrences starting 01/25/2024 until 02/23/[address] [facility] Work Phone: Comment on above: 1 Occurrences starting 01/25/2024 until 02/23/2025 Hemoglobin.gastroint es tinal.lower [Presence] in Stool by Immunoassay FECAL OCCULT BLOOD TEST Lab Routine Well adult exam Screening for colon cancer Ordered: 08/27/[address] [facility] Work Phone: Comment on above: Ordered: 08/27/2023 Patient Education ED Hydrocele, Type Not Specified [facility] Work Phone: Patient referral [facility] Work Phone: [facility] Immunizations Immunization Date Immunization Notes Care Provider Shady perez 02-27-2021 COVID-19 vaccine, ag e 12+ yr ([employer]ER-[employer]ION[employer] - PURPLE TOP) Juan Ramon Stapleton MD Work Phone: [facility] 02-06-2021 COVID-19 vaccine, ag e 12+ yr ([employer] - PURPLE TOP) Juan Ramon Stapleton MD Work Phone: [facility] 03-10-2019 rabies vaccine, for intramuscular injection Juan Ramon Stapleton MD Work Phone: [facility] 02-24-2019 rabies vaccine, for intramuscular injection Juan Ramon Stapleton MD Work Phone: [facility] 02-17-2019 rabies vaccine, for intramuscular injection Juan Ramon Stapleton MD Work Phone: [facility] 12-19-2016 tetanus toxoid, redu wade diphtheria toxoid, and acellular pertussis vaccine, adsorbed Juan Ramon Stapleton MD Work Phone: [facility] Work Phone: 12-21-2010 tetanus toxoid, redu wade diphtheria toxoid, and acellular pertussis vaccine, adsorbed Juan Ramon Stapleton MD Work Phone: [facility] Payers Date Payer Category Payer Private Health Insurance [id number] 2024 Self-pay [id number] 2024 Unknown [id number] 2021 Blue Cross Blue Shield [facility] [id number] 2021 Unknown MAY DEL[employer] ACCE SS PPO [id number] 2021-Present [phone] [address] [place] [address] PPO [id number] 2021 Unknown MAY DEL[employer] ACCE SS PPO [id number] 2021-Present [phone] [id number] [place] [address] PPO [id number] 2021 Unknown [id number] 2021 Private Health Insurance ASHUTOSH NICHOLAS OAP [id number] 2021-Present [phone] [address] [place] [address] Open Access [id number] Unknown SELF INS [facility] [id number] [id number] Unknown [id number] Unknown [id number] Unknown [id number] Social History Date Type Detail Facility Start: 10-13-2014 End: 08-28-2024 Tobacco smoking status NHIS Ex-smoker [facility] Work Phone: Start: 10-13-2014 End: 08-28-2024 Tobacco use and exposure Former smokeless tobacco user [facility] Work Phone: History of tobacco use Chews Tobacco [facility] Work Phone: Start: 08-30-2021 End: 04-27-2025 Alcohol intake Current drinker of alcohol (finding) [facility] Start: 08-25-2021 History SDOH Alcohol Comment weekends [facility] Start: 1965 Sex Assigned At Not on file C [facility] Start: 03-03-2022 End: 08-28-2022 Exposure to SARS-CoV-2 (event) Not sure [facility] History of tobacco use Current smoker [facility] Work Phone: History of tobacco use Cigarette Smoker C [facility] Work Phone: Start: 08-28-2022 End: 07-11-2023 Cigarettes smoked current (pack per day) - Reported 0.3 [facility] Work Phone: Start: 07-11-2023 End: 08-28-2024 Tobacco use panel [facility] Work Phone: Adult Depression Scr eening Assessment 0 [facility] Work Phone: Start: 02-15-2024 [facility] Start: 1965 Sex Assigned At Male [facility] Has the [employer], [employer], or [employer] threatened to shut off services in your home in past 12Mo No [facility] Do you belong to any clubs or organizations such as yazdanism groups, unions, fraternal or athletic groups, or school groups? Yes [facility] Are you now , , , , never or living with a partner? [facility] How often to you hav e a drink containing alcohol? 2-3 time sa week [facility] How many standard dr inks containing alcohol do you have on a typical day? 1 or 2 [facility] How often do you hav e 6 or more drinks on 1 occasion? Less than monthly [facility] Do you feel stress - tense, restless, nervous, or anxious, or unable to sleep at night because your mind is troubled all the time - these days [OSQ] Not at all [facility] (I/We) worried faisal er (my/our) food would run out before (I/we) got money to buy more. Never true [facility] Start: 04-27-2025 [facility] (finding[facility] Functional Status Date Assessment Result Facility 10-13-2014 Are you deaf, or do you have serious difficulty hearing Yes 10/13/2014 8:29 AM Esther Wyman LPN Yes [facility] 10-13-2014 Are you blind, or do you have serious difficulty seeing, even when wearing glasses No 10/13/2014 8:29 AM Esther Wyman LPN No [facility] 10-13-2014 Do you have serious difficulty walking or climbing stairs No 10/13/2014 8:29 AM Esther Wyman LPN No [facility] 10-13-2014 Do you have difficul ty dressing or bathing No 10/13/2014 8:29 AM Esther Wyman LPN No [facility] 10-13-2014 Because of a physica l, mental, or emotional condition, do you have difficulty doing errands alone such as visiting a physician's office or shopping No 10/13/2014 8:29 AM Esther Wyman LPN No [facility] Mental Status Date Assessment Result Facility 10-13-2014 Because of a physica l, mental, or emotional condition, do you have serious difficulty concentrating, remembering, or making decisions No 10/13/2014 8:29 AM Esther Wyman LPN No [facility] Clinical Notes 02-07-2022 to 04-27-2025 Telephone Encounter - Roseline Bell MA - 04/27/2025 8:41 AM EDTTelephone Encounter - Roseline Bell MA - 04/27/2025 8:41 AM EDTTelephone Encounter - Lesly Claros RN - 04/27/2025 8:10 AM EDT Note Date & Type Note Facility 04-27-2025 Radiology Diagnostic study note [facility] Imaging Services [address] [place], [place] [address] Testicular with Arterial Flow MR#: [id number] Acct: [id number] Name: BENJAMIN SHEPARD Rep #: [id number] M 59 From: Samina Paulino MD PCP: Dr. Juan Ramon Stapleton MD Status: PRE ER Study:Testicular with Arterial Flow Date of E xam: 04/27/25 Exam# [id number] Ordering Dr: Quincy Redmond DO PROCEDURE: TESTICULAR WITH ARTERIAL FLOW 04/27/2025 REASON FOR EXAM: PAIN AND SWELLING TECHNIQUE: Cedeno scale imaging of the scrotal contents. COMPARISON: None FINDINGS: The right testicle measures 3.4 x 2.9 x 2.1 cm in the left 3.8 x 2.8 x 2.0 cm. There is no testicular mass or cyst. Normal color Doppler is documented with no evidence of torsion. The right epididymis measures 0.7 x 1.0 x 1.1 cm in the left 1.0 x 1.6 x 1.1 cm. There is a small left hydrocele present. There is no significant varicocele identified on the right or left. US/Testicular with Arterial Flow IMPRESSION: There is no testicular mass or torsion. There is a small left hydrocele. Reading Location: [facility] CC: Dr. Quincy Delarosa DO; Dr. Juan Ramon Stapleton MD ~ Seed Buyer: Signed [facility] 04-27-2025 Telephone encounter Note Spoke with patient and Dr Stapleton will see him with the understanding that depending on evaluation may send him to ER. Patient voiced understanding and patient was scheduled. Roseline Bell MA [facility] 04-27-2025 Miscellaneous Notes Spoke with patient and Dr Stapleton will see him with the understanding that depending on evaluation may send him to ER. Patient voiced understanding and patient was scheduled. Roseline Bell MA Protocol recommends got to the ER. Pt states he just needs to see his doctor and he isn't going to spend $100 to go to the ER. I let Pt know I would let provider know, but told Pt he would most likely tell him to go to the ER. Pt states I will tell him the same thing I told you, I'm not going to go to the ER.. Care plan reviewed with patient. Patient voices understanding. Advised patient that if symptoms get worse to be evaluated in ER. Reason for Disposition Swollen scrotum OR lump in the scrotum/groin area Scrotum is painful or tender to touch Answer Assessment - Initial Assessment Questions 1. SYMPTOM: Left testicle swelling 2-3 times the size of R testicle. 2. LOCATION: L testicle. 3. ONSET: Started Sunday. 4. PAIN: Pt states the pain is intermittent sharp 8/[address] moves a certain way or if he hits it. 5. URINE: Pt denies difficulty passing urine, this morning and has to go now. 6. CAUSE: Does not know what is causing the symptoms, states he had a Vasectomy years ago and feels like it's wrapped up in veins. 7. OTHER SYMPTOMS: Pt denies fever, abdomen pain, or blood in urine. Answer Assessment - Initial Assessment Questions 1. SCROTAL SWELLING: Pt reports the L testicle is 2-3 times the size of the R testicle. 2. LOCATION: L testicle 3. ONSET: Sunday 4. PATTERN: Pain come and go. 5. SCROTAL PAIN: Pain is intermittent sharp 8/10 when hits it or movement. 6. HERNIA: Denies doctor telling him he has had a hernia. 7. OTHER SYMPTOMS: Pt denies abdomen pain, difficulty passing urine, fever, or vomiting. Protocols used: Penis and Scrotum Yrjsdawa-XPWHC-OC, Scrotum Aukfndry-PZNBD-EK documented in this encounter [facility] 04-27-2025 Telephone encounter Note Protocol recommends got to the ER. Pt states he just needs to see his doctor and he isn't going to spend $100 to go to the ER. I let Pt know I would let provider know, but told Pt he would most likely tell him to go to the ER. Pt states I will tell him the same thing I told you, I'm not going to go to the ER.. Care plan reviewed with patient. Patient voices understanding. Advised patient that if symptoms get worse to be evaluated in ER. Reason for Disposition Swollen scrotum OR lump in the scrotum/groin area Scrotum is painful or tender to touch Answer Assessment - Initial Assessment Questions 1. SYMPTOM: Left testicle swelling 2-3 times the size of R testicle. 2. LOCATION: L testicle. 3. ONSET: Started Sunday. 4. PAIN: Pt states the pain is intermittent sharp 8/10 when he moves a certain way or if he hits it. 5. URINE: Pt denies difficulty passing urine, this morning and has to go now. 6. CAUSE: Does not know what is causing the symptoms, states he had a Vasectomy years ago and feels like it's wrapped up in veins. 7. OTHER SYMPTOMS: Pt denies fever, abdomen pain, or blood in urine. Answer Assessment - Initial Assessment Questions 1. SCROTAL SWELLING: Pt reports the L testicle is 2-3 times the size of the R testicle. 2. LOCATION: L testicle 3. ONSET: Sunday 4. PATTERN: Pain come and go. 5. SCROTAL PAIN: Pain is intermittent sharp 8/10 when hits it or movement. 6. HERNIA: Denies doctor telling him he has had a hernia. 7. OTHER SYMPTOMS: Pt denies abdomen pain, difficulty passing urine, fever, or vomiting. Protocols used: Penis and Scrotum Oqjghuuj-HRXSQ-FF, Scrotum Uvqdepzr-ZODGA-PY [facility] 09-18-2024 Note HNO ID: [id number] Author: JAS MYRICK MD Service: ? Author Type: Physician Type: Progress Notes Filed: 09/18/2024 08:50 Note Text: Patient presents with: Cough: Nausea, body chills, productive cough x 4 days HPI: Feeling sick for 4 days. He had sore throat and vomited 1 week ago. Positive symptoms: Cough, Chills, Body Aches, headaches, Nausea, improved Sore throat, resolved Vomiting, some Diarrhea, Negative symptoms: Shortness of breath, Chest tightness, Chest pain, OTC: Mucinex, Dayquil MEDICATIONS: Current Outpatient Medications Medication Sig atorvastatin (LIPITOR) 10 mg tablet Take 1 tablet by mouth every other day. For cholesterol. famotidine (PEPCID) 40 mg tablet Take 1 tablet by mouth two times a day as needed. sildenafil (VIAGRA) 50 mg tablet Take 1 tablet by mouth once daily. As needed No current facility-administered medications for this visit. ALLERGIES: ALLERGIES Allergen Reactions Ibuprofen Vomiting Levaquin [Levofloxa* Myalgia [place] like a muscle strain in his calves. Omeprazole Myalgia Prevacid [Lansopraz* Myalgia VITALS: BP 104/71 Pulse 77 Temp 36.1 ?C (97 ?F) Resp 20 Wt 98 kg (216 lb 0.8 oz) SpO2 98% BMI 34.35 kg/m? PHYSICAL EXAM: GEN: mildly ill appearing, pleasant, alert HEENT: PERRL, EOMI, conjunctiva clear Ears: canals with small soft distal cerumen. TMs without erythema, bulge, or effusion Sinuses: non-tender frontal sinus, non-tender maxillary sinuses Throat: moist mucous membranes, mild erythema, no exudate Neck: supple, no thyromegaly, no lymphadenopathy HEART: regular rate and rhythm, no murmurs LUNGS: clear to auscultation, no wheezes or crackles, no increased WOB ASSESSMENT/PLAN: 1. URI, acute - ICD9: 465.9, ICD10: J06.9 (primary diagnosis) 2. Acute cough - ICD9: 786.2, ICD10: R05.1 - suspect viral URI; differential includes COVID, influenza, and occult pneumonia (prevalent in the community). - He would like to continue supportive care treatment with rest, cold medicine, and analgesia. Follow up with worsening cough, shortness of breath, chest pain, lethargy, or persistent fever. Jas Myrick MD [facility] 09-18-2024 History of Present illness Narrative Patient presents with: Cough: Nausea, body chills, productive cough x 4 days HPI: Feeling sick for 4 days. He had sore throat and vomited 1 week ago. Positive symptoms: Cough, Chills, Body Aches, headaches, Nausea, improved Sore throat, resolved Vomiting, some Diarrhea, Negative symptoms: Shortness of breath, Chest tightness, Chest pain, OTC: Mucinex, Dayquil MEDICATIONS: Current Outpatient Medications Medication Sig atorvastatin (LIPITOR) 10 mg tablet Take 1 tablet by mouth every other day. For cholesterol. famotidine (PEPCID) 40 mg tablet Take 1 tablet by mouth two times a day as needed. sildenafil (VIAGRA) 50 mg tablet Take 1 tablet by mouth once daily. As needed No current facility-administered medications for this visit. ALLERGIES: ALLERGIES Allergen Reactions Ibuprofen Vomiting Levaquin [Levofloxa* Myalgia [place] like a muscle strain in his calves. Omeprazole Myalgia Prevacid [Lansopraz* Myalgia VITALS: BP 104/71 Pulse 77 Temp 36.1 C (97 F) Resp 20 Wt 98 kg (216 lb 0.8 oz) SpO2 98% BMI 34.35 kg/m PHYSICAL EXAM: GEN: mildly ill appearing, pleasant, alert HEENT: PERRL, EOMI, conjunctiva clear Ears: canals with small soft distal cerumen. TMs without erythema, bulge, or effusion Sinuses: non-tender frontal sinus, non-tender maxillary sinuses Throat: moist mucous membranes, mild erythema, no exudate Neck: supple, no thyromegaly, no lymphadenopathy HEART: regular rate and rhythm, no murmurs LUNGS: clear to auscultation, no wheezes or crackles, no increased WOB ASSESSMENT/PLAN: 1. URI, acute - ICD9: 465.9, ICD10: J06.9 (primary diagnosis) 2. Acute cough - ICD9: 786.2, ICD10: R05.1 - suspect viral URI; differential includes COVID, influenza, and occult pneumonia (prevalent in the community). - He would like to continue supportive care treatment with rest, cold medicine, and analgesia. Follow up with worsening cough, shortness of breath, chest pain, lethargy, or persistent fever. Jas Myrick MD documented in this encounter [facility] 09-02-2024 Telephone encounter Note Patient notified and voiced understanding. Patient agreeable to start medication. Roseline Bell MA [facility] 09-02-2024 Miscellaneous Notes Patient notified and voiced understanding. Patient agreeable to start medication. Roseline Bell MA At the earliest side affects can show up within days of starting it. Otherwise sometimes it may take longer. We crainal nerves also have him just take one every other day to start. Pt notified pf pcp's message. Pt is wanting to know how long it would take for the side effects of the Lipitor to show up if he decided to take it. Advised pt it can take a month or two but pt wanting to check with pcp. Jessica Castillo LPN Advise patient order placed to get lipids done on or after 12/03/2024 Pt notified. 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 States if there is a side effect to get he usually gets it. He would like to work on diet and exercise and see where his labs are in 3 months, then might consider medication. Kandice Nice MA Left message for pt to contact office. Jessica Castillo LPN Let patient know he is not immune to Hep B. Would advise a nurse visit to start the series and might as well get the shingrix as well. His lipid panel showed Trigs ok at 142, HDL ok at 49 and LDL high at 176. At this time because his LDL is staying elevated I would advise we start atorvastatin at 10 mg day. If ok will send in a script. Would want liver functions and repeat lipid panel in 3 months. His other labs were all ok. documented in this encounter [facility] 09-02-2024 Telephone encounter Note At the earliest side affects can show up within days of starting it. Otherwise sometimes it may take longer. We crainal nerves also have him just take one every other day to start. [facility] 09-02-2024 Telephone encounter Note Pt notified pf pcp's message. Pt is wanting to know how long it would take for the side effects of the Lipitor to show up if he decided to take it. Advised pt it can take a month or two but pt wanting to check with pcp. Jessica Castillo LPN [facility] 09-02-2024 Telephone encounter Note Advise patient order placed to get lipids done on or after 12/03/2024 [facility] 09-01-2024 Telephone encounter Note Pt notified. 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 States if there is a side effect to get he usually gets it. He would like to work on diet and exercise and see where his labs are in 3 months, then might consider medication. Kandice Nice MA [facility] 08-29-2024 Telephone encounter Note Left message for pt to contact office. Jessica Castillo LPN [facility] 08-28-2024 Telephone encounter Note Let patient know he is not immune to Hep B. Would advise a nurse visit to start the series and might as well get the shingrix as well. His lipid panel showed Trigs ok at 142, HDL ok at 49 and LDL high at 176. At this time because his LDL is staying elevated I would advise we start atorvastatin at 10 mg day. If ok will send in a script. Would want liver functions and repeat lipid panel in 3 months. His other labs were all ok. T [facility] 08-28-2024 History of Present illness Narrative Chief Complaint Patient presents with: Physical HPI Benjamin Shepard is a 58 year old male who presents here today for Physical. Patient with hx of high triglycerides, hyperlipidemia, ex-smoker and GERD but otherwise healthy Patient has been doing well. Notes after eating he will feel bloated. No pain or nausea. Past medical history, appointments, medications, allergies reviewed. Previous Medical History PAST MEDICAL HISTORY Diagnosis Date Ex-smoker 08/28/2022 Quit 1998: smoed about a 1/4PPD for about 8 years. GERD (gastroesophageal reflux disease) 10/13/2014 Hyperlipidemia, mixed 08/26/2021 Hypertriglyceridemia 12/04/2019 sleep study 2008 negative for sleep apnea Well adult exam 10/13/2014 Last done 08/28/2022 Previous Surgical History PAST SURGICAL HISTORY Procedure Laterality Date 2D ECHO COMPLETE INP 11/11/2014 EF= 58% no abnornalities COLONOSCOPY FLX DX W/COLLJ SPEC WHEN PFRMD 05/24/2009 Colonoscopy, repeat 5 yrs (dad with colon CA) KNEE ARTHROSCOP MENISCUS REPAIR MED/LAT Right 02/10/2021 PAST SURGICAL HISTORY OF 08/12/2003 varicose Veins PAST SURGICAL HISTORY OF 08/12/2003 bloodclot removal Family History FAMILY HISTORY Problem Relation Age of Onset Colon Cancer Father 70 or 71 Colon Cancer Maternal Aunt Colon Cancer Maternal Grandmother stomach or colon Heart Maternal Uncle pace maker Coronary Artery Disease Maternal Uncle 50's Diabetes Maternal Aunt Stroke Maternal Grandfather Patient Allergies ALLERGIES Allergen Reactions Ibuprofen Vomiting Levaquin [Levofloxa* Myalgia [place] like a muscle strain in his calves. Omeprazole Myalgia Prevacid [Lansopraz* Myalgia Current Medications Current Outpatient Medications on File Prior to Visit Medication Sig famotidine (PEPCID) 40 mg tablet Take 1 tablet by mouth two times a day as needed. sildenafil (VIAGRA) 50 mg tablet Take 1 tablet by mouth once daily. As needed azithromycin (ZITHROMAX) 500 mg tablet Take 2 tablets by mouth once daily. No current facility-administered medications on file prior to visit. Social History Social History Tobacco Use Smoking status: Former Current packs/day: 0.25 Average packs/day: 0.3 packs/day for 8.0 years (2.0 ttl pk-yrs) Types: Cigarettes Smokeless tobacco: Former Types: Chew Vaping Use Vaping status: Never Used Substance Use Topics Alcohol use: Yes Comment: weekends Drug use: No Review of Symptoms REVIEW OF SYSTEMS GENERAL: No weight loss, malaise or fevers HEENT: has been getting some headache's and thinks he may need vision. No sever and will respond to OTC meds. Sometimes will go away on it's own . No headache's caused by pushing, straining. Not being awoken by headaches. No changes in hearing. no nose bleeds or other nasal problems NECK: Negative for lumps, goiter, pain and significant neck swelling RESPIRATORY: Negative for cough, hemoptysis, wheezing, COPD, dyspnea or shortness of breath CARDIOVASCULAR: Negative for chest pain, leg swelling, hypertension, CHF or palpitations GI: No nausea, vomiting, or diarrhea and No frequent heartburn or reflux symptoms. No blood. See HPI : No history of dysuria, frequency or blood MUSCULOSKELETAL: Negative for joint pain or swelling, back pain or muscle pain SKIN: Negative for lesions, rash, and itching PSYCH: Negative for sleep disturbance, mood disorder and recent psychosocial stressors HEMATOLOGY/LYMPHOLOGY: Negative for prolonged bleeding, bruising easily or swollen nodes ENDOCRINE: Negative for cold or heat intolerance, polyuria, polydipsia and goiter NEURO: No history of syncope, paralysis, seizures or tremors EXAM: BP 122/74 Pulse 74 Ht 168.9 cm (5' 6.5) Wt 95.8 kg (211 lb 3.2 oz) BMI 33.58 kg/m Last 5 Encounter Wt Readings: Date: Wt: 08/28/2024 95.8 kg (211 lb 3.2 oz) 01/25/2024 94.8 kg (209 lb) 08/27/2023 96.6 kg (213 lb) 08/03/2023 97.1 kg (214 lb) 07/11/2023 96.2 kg (212 lb) General Appearance: Well appearing, alert, in no acute distress, well-hydrated, well nourished.. Skin: Skin color, texture, turgor normal, no suspicious rashes or lesions. Head: Normocephalic, no masses, lesions, tenderness or abnormalities. Eyes: Anicteric sclera. Pupils are equally round and reactive to light. Extraocular movements are intact. . Ears: External ears, TM's normal, canals clear. Nose/Sinuses: Nares normal, septum midline, mucosa normal, no drainage or sinus tenderness. Oropharynx: Lips, mucosa, and tongue normal, teeth and gums normal, oropharynx normal. Neck: Supple, no adenopathy; thyroid symmetric, normal size, no bruits. Lungs: Lungs clear to auscultation. No wheezing, rhonchi, rales.. Heart: RRR without murmur, gallop, or rubs. No ectopy. Abdomen: Normal abdominal exam, Abdomen soft, non-tender. Bowel sounds normal. No masses, organomegaly. Extremities: No deformities, edema, skin discoloration, Good capillary refill. . Musculoskeletal: Spine range of motion normal. Muscular strength intact, No joint swelling, deformity, or tenderness. Peripheral Pulses: Normal. Neurologic: Gait normal. Reflexes normal and symmetric. Sensation to light touch and crainal nerves 2-12 intact.. Genitalia: Normal, Penis normal. No urethral discharge. Scrotum normal to palpation. No hernia.. Rectal: Normal exam. Health Maintenance List Depression Screening Never done Anxiety Screening Never done Hepatitis B Vaccine(1 of 3 - 19+ 3-dose series) Never done Shingrix Vaccine(1 of 2) Never done Covid-19 Vaccine(3 - season) due on 07/13/2024 Colorectal Cancer Screening due on 08/29/2024 Diabetes Screening due on 08/29/2026 DTaP,Tdap,Td Vaccine(3 - Td or Tdap) due on 12/19/2026 Lipid Screening due on 08/29/2028 Prostate Cancer Screening Discussion due on 08/29/2028 Hepatitis C Screening Completed Influenza Vaccine Discontinued HIV Screening Discontinued Data reviewed A/P ASSESSMENT/PLAN: 1. Well adult exam - ICD9: V70.0, ICD10: Z00.00 (primary diagnosis) - Counseled on healthy diet and regular exercise - Discussed need for and benefit of weight loss. BMI 33.58 kg/(m^2) - Follow up for annual exam in one year - advised on Shingrix. 2. Hyperlipidemia, mixed - ICD9: 272.2, ICD10: E78.2 - Control undetermined, due for labs - Counseled on healthy diet and regular exercise - Discussed need for and benefit of weight loss. BMI 33.58 kg/(m^2) Check CMP, Lipids, UA 3. Hypertriglyceridemia - ICD9: 272.1, ICD10: E78.1 - Control undetermined, due for labs - Counseled on healthy diet and regular exercise - Discussed need for and benefit of weight loss. BMI 33.58 kg/(m^2) 4. Gastroesophageal reflux disease without esophagitis - ICD9: 530.81, ICD10: K21.9 - Continue treatment with Pepcid 40 mg BID 5. Need for hepatitis B screening test - ICD9: V73.89, ICD10: Z11.59 - check Hep B surface antigen. 6. Encounter for screening for diabetes mellitus - ICD9: V77.1, ICD10: Z13.1 Check A1c 8. Screening for colon cancer - ICD9: V76.51, ICD10: Z12.11 - consult to General surgery 9. Screening for prostate cancer - ICD9: V76.44, ICD10: Z12.5 - check PSA 10. Family hx of colon cancer - ICD9: V16.0, ICD10: Z80.0 - consult General surgery 11. Bloating - ICD9: 787.3, ICD10: R14.0 - as per #10 F/u in a year or sooner if needed. Juan Ramon Stapleton MD The sensitive examination was discussed with the Patient or Patient's Authorized Platform Operations Director. As applicable, any other physician, advance practice provider, medical student, or other health professional student that will be observing or involved in the sensitive examination for educational or training purposes was discussed with the Patient or Authorized Platform Operations Director. The Patient or Authorized Platform Operations Director has agreed to proceed with the sensitive examination. (Sensitive examination includes inspection and/or palpation of the breasts, pelvis, prostate and anorectal regions) documented in this encounter [facility] 08-28-2024 Note HNO ID: [id number] Author: JUAN RAMON STAPLETON MD Service: ? Author Type: Physician Type: Progress Notes Filed: 08/28/2024 11:27 Note Text: Chief Complaint Patient presents with: Physical HPI Benjamin Shepard is a 58 year old male who presents here today for Physical. Patient with hx of high triglycerides, hyperlipidemia, ex-smoker and GERD but otherwise healthy Patient has been doing well. Notes after eating he will feel bloated. No pain or nausea. Past medical history, appointments, medications, allergies reviewed. Previous Medical History PAST MEDICAL HISTORY Diagnosis Date Ex-smoker 08/28/2022 Quit 1998: smoed about a 1/4PPD for about 8 years. GERD (gastroesophageal reflux disease) 10/13/2014 Hyperlipidemia, mixed 08/26/2021 Hypertriglyceridemia 12/04/2019 sleep study 2008 negative for sleep apnea Well adult exam 10/13/2014 Last done 08/28/2022 Previous Surgical History PAST SURGICAL HISTORY Procedure Laterality Date 2D ECHO COMPLETE INP 11/11/2014 EF= 58% no abnornalities COLONOSCOPY FLX DX W/COLLJ SPEC WHEN PFRMD 05/24/2009 Colonoscopy, repeat 5 yrs (dad with colon CA) KNEE ARTHROSCOP MENISCUS REPAIR MED/LAT Right 02/10/2021 PAST SURGICAL HISTORY OF 08/12/2003 varicose Veins PAST SURGICAL HISTORY OF 08/12/2003 bloodclot removal Family History FAMILY HISTORY Problem Relation Age of Onset Colon Cancer Father 70 or 71 Colon Cancer Maternal Aunt Colon Cancer Maternal Grandmother stomach or colon Heart Maternal Uncle pace maker Coronary Artery Disease Maternal Uncle 50's Diabetes Maternal Aunt Stroke Maternal Grandfather Patient Allergies ALLERGIES Allergen Reactions Ibuprofen Vomiting Levaquin [Levofloxa* Myalgia [place] like a muscle strain in his calves. Omeprazole Myalgia Prevacid [Lansopraz* Myalgia Current Medications Current Outpatient Medications on File Prior to Visit Medication Sig famotidine (PEPCID) 40 mg tablet Take 1 tablet by mouth two times a day as needed. sildenafil (VIAGRA) 50 mg tablet Take 1 tablet by mouth once daily. As needed azithromycin (ZITHROMAX) 500 mg tablet Take 2 tablets by mouth once daily. No current facility-administered medications on file prior to visit. Social History Social History Tobacco Use Smoking status: Former Current packs/day: 0.25 Average packs/day: 0.3 packs/day for 8.0 years (2.0 ttl pk-yrs) Types: Cigarettes Smokeless tobacco: Former Types: Chew Vaping Use Vaping status: Never Used Substance Use Topics Alcohol use: Yes Comment: weekends Drug use: No Review of Symptoms REVIEW OF SYSTEMS GENERAL: No weight loss, malaise or fevers HEENT: has been getting some headache's and thinks he may need vision. No sever and will respond to OTC meds. Sometimes will go away on it's own . No headache's caused by pushing, straining. Not being awoken by headaches. No changes in hearing. no nose bleeds or other nasal problems NECK: Negative for lumps, goiter, pain and significant neck swelling RESPIRATORY: Negative for cough, hemoptysis, wheezing, COPD, dyspnea or shortness of breath CARDIOVASCULAR: Negative for chest pain, leg swelling, hypertension, CHF or palpitations GI: No nausea, vomiting, or diarrhea and No frequent heartburn or reflux symptoms. No blood. See HPI : No history of dysuria, frequency or blood MUSCULOSKELETAL: Negative for joint pain or swelling, back pain or muscle pain SKIN: Negative for lesions, rash, and itching PSYCH: Negative for sleep disturbance, mood disorder and recent psychosocial stressors HEMATOLOGY/LYMPHOLOGY: Negative for prolonged bleeding, bruising easily or swollen nodes ENDOCRINE: Negative for cold or heat intolerance, polyuria, polydipsia and goiter NEURO: No history of syncope, paralysis, seizures or tremors EXAM: BP 122/74 Pulse 74 Ht 168.9 cm (5' 6.5) Wt 95.8 kg (211 lb 3.2 oz) BMI 33.58 kg/m? Last 5 Encounter Wt Readings: Date: Wt: 08/28/2024 95.8 kg (211 lb 3.2 oz) 01/25/2024 94.8 kg (209 lb) 08/27/2023 96.6 kg (213 lb) 08/03/2023 97.1 kg (214 lb) 07/11/2023 96.2 kg (212 lb) General Appearance: Well appearing, alert, in no acute distress, well-hydrated, well nourished.. Skin: Skin color, texture, turgor normal, no suspicious rashes or lesions. Head: Normocephalic, no masses, lesions, tenderness or abnormalities. Eyes: Anicteric sclera. Pupils are equally round and reactive to light. Extraocular movements are intact. . Ears: External ears, TM's normal, canals clear. Nose/Sinuses: Nares normal, septum midline, mucosa normal, no drainage or sinus tenderness. Oropharynx: Lips, mucosa, and tongue normal, teeth and gums normal, oropharynx normal. Neck: Supple, no adenopathy; thyroid symmetric, normal size, no bruits. Lungs: Lungs clear to auscultation. No wheezing, rhonchi, rales.. Heart: RRR without murmur, gallop, or rubs. No ectopy. Abdomen: Normal abdominal exam, Abdo (more content not included)... [facility] 08-20-2024 Telephone encounter Note Prescription Refill Information The patient has been identified by name and date of : Yes Caregiver verified no other encounters exist for this prescription request: Yes Caregiver confirmed with patient/requestor that no other refills are due, in the near future, with this provider at this time: Yes The last office visit in the department: 01/25/24 Does the patient have a future office visit with this provider/department: Yes Requested Prescriptions Pending Prescriptions Disp Refills famotidine (PEPCID) 40 mg tablet 60 tablet 5 Sig: Take 1 tablet by mouth two times a day as needed. sildenafil (VIAGRA) 50 mg tablet 10 tablet 5 Sig: Take 1 tablet by mouth once daily. As needed Jessica Castillo LPN August 20, 2024 10:04 AM [facility] 08-20-2024 Miscellaneous Notes Prescription Refill Information The patient has been identified by name and date of : Yes Caregiver verified no other encounters exist for this prescription request: Yes Caregiver confirmed with patient/requestor that no other refills are due, in the near future, with this provider at this time: Yes The last office visit in the department: 01/25/24 Does the patient have a future office visit with this provider/department: Yes Requested Prescriptions Pending Prescriptions Disp Refills famotidine (PEPCID) 40 mg tablet 60 tablet 5 Sig: Take 1 tablet by mouth two times a day as needed. sildenafil (VIAGRA) 50 mg tablet 10 tablet 5 Sig: Take 1 tablet by mouth once daily. As needed Jessica Castillo LPN August 20, 2024 10:04 AM documented in this encounter [facility] 05-09-2024 Telephone encounter Note The following approved medication requests have been transmitted electronically. Requested Prescriptions Signed Prescriptions Disp Refills famotidine (PEPCID) 40 mg tablet 60 tablet 5 Sig: Take 1 tablet by mouth two times a day as needed. Authorizing Provider: JUAN RAMON STAPLETON sildenafil (VIAGRA) 50 mg tablet 10 tablet 5 Sig: Take 1 tablet by mouth once daily. As needed Authorizing Provider: JUAN RAMON STAPLETON MD [facility] 05-09-2024 Miscellaneous Notes The following approved medication requests have been transmitted electronically. Requested Prescriptions Signed Prescriptions Disp Refills famotidine (PEPCID) 40 mg tablet 60 tablet 5 Sig: Take 1 tablet by mouth two times a day as needed. Authorizing Provider: JUAN RAMON STAPLETON sildenafil (VIAGRA) 50 mg tablet 10 tablet 5 Sig: Take 1 tablet by mouth once daily. As needed Authorizing Provider: JUAN RAMON STAPLETON MD Prescription Refill Information The patient has been identified by name and date of : Yes Caregiver verified no other encounters exist for this prescription request: Yes Caregiver confirmed with patient/requestor that no other refills are due, in the near future, with this provider at this time: Yes The last office visit in the department: 01/25/24 Does the patient have a future office visit with this provider/department: Yes 08/28/24 Requested Prescriptions Pending Prescriptions Disp Refills famotidine (PEPCID) 40 mg tablet 60 tablet 5 Sig: Take 1 tablet by mouth two times a day as needed. sildenafil (VIAGRA) 50 mg tablet 10 tablet 5 Sig: Take 1 tablet by mouth once daily. As needed Please send today Swathi [facility] May 09, 2024 9:27 AM documented in this encounter [facility] 05-09-2024 Telephone encounter Note Prescription Refill Information The patient has been identified by name and date of : Yes Caregiver verified no other encounters exist for this prescription request: Yes Caregiver confirmed with patient/requestor that no other refills are due, in the near future, with this provider at this time: Yes The last office visit in the department: 01/25/24 Does the patient have a future office visit with this provider/department: Yes 08/28/24 Requested Prescriptions Pending Prescriptions Disp Refills famotidine (PEPCID) 40 mg tablet 60 tablet 5 Sig: Take 1 tablet by mouth two times a day as needed. sildenafil (VIAGRA) 50 mg tablet 10 tablet 5 Sig: Take 1 tablet by mouth once daily. As needed Please send today Swathi Hurtado [facility] May 09, 2024 9:27 AM [facility] 02-18-2024 Note HNO ID: [id number] Author: OCTAVIA LESLIE LPN Service: ? Author Type: LICENSED NURSE Type: Progress Notes Filed: 02/18/2024 08:10 Note Text: Scan on 02/15/2024 12:41 PM by ProviderDima PA-C: X-ray Octavia Leslie LPN [facility] 02-18-2024 History of Present illness Narrative Scan on 02/15/2024 12:41 PM by ProviderDima PA-C: X-ray Octavia Leslie LPN documented in this encounter [facility] 02-04-2024 Miscellaneous Notes Patient returned call and went over notes below from Dr Stapleton with understanding. Aware rx sent to pharmacy. Call placed to patient with no answer. Voicemail left for patient to return call and ask to speak to a triage nurse to receive provider message. Aurea Fink RN Let patient know I sent in a script for an antibiotic called doxy 100 mg twice ad ay for 14 days. This will not cause muscle pains. The following approved medication requests have been transmitted electronically. Requested Prescriptions Signed Prescriptions Disp Refills doxycycline (VIBRA-TABS) 100 mg tablet 28 tablet 0 Sig: Take 1 tablet by mouth two times a day for 14 days. Juan Ramon Stapleton MD Call to pt and notified him of Providers message below. Pt verbalized understanding and states he was going to stop medication anyway. Pt at this time is agreeable with plan, with update on Sunday. Asking if Provider will call him on Sunday to get an update on how he's doing and what new abx will be prescribed. Pt requests new Rx to go to [facility]. Notified pt if PCP makes any other recommendations, we will call and notify him before then, but if not we will talk to him on Sunday. Idania Riddle Ma Advise patient that this could be from the Levaquin and needs to stop it. I will need to determine what I'm going to change him to and send it in but would not start anything new till Sunday. Patient calls to report bilateral calf pain. No warmth, swelling, or change in skin color. Afebrile. Reports calves feels tight on both sides like a muscle strain. Nurse triage completed. Protocol recommends see provider within 3 days. Patient asking if provider thinks it could be related to Levaquin that he has been on for 7 days. Care advice and red flag symptoms reviewed. Patient verbalizes understanding. Reason for Disposition [1] MODERATE pain (e.g., interferes with normal activities, limping) AND [2] present > 3 days Answer Assessment - Initial Assessment Questions 1. ONSET: Patient reports bilateral calf pain that started in the past several days but is worse today. Patient reports that it feels like a strained muscle on both sides but hasn't done any thing differently to cause an injury. Patient wondering if it could be a side effect from Levaquin. Reports had lower back pain initially that subsided and now has bilateral calf pain. 2. LOCATION: bilateral calf pain. 3. PAIN:- MODERATE (4-7): interferes with normal activities (e.g., work or school) or awakens from sleep, limping 4. WORK OR EXERCISE: No recent work or exercise that involved this part of the body. 5. CAUSE: Patient thought maybe related to the Levaquin that he has been on for 7 days. 6. OTHER SYMPTOMS: Pain initially had in the lower back which has resolved. Patient feels that it has moved to the calves. No chest pain, breathing difficulty, swelling, rash, fever, numbness, weakness. Protocols used: Leg [id number] documented in this encounter [facility] 01-29-2024 Miscellaneous Notes Patient returned call and given provider's message below and patient verbalized understanding. Sabrina Mann RN Left message for patient to contact office. Roseline Bell MA Let patient know his CT shows a fat containing hernia on the right. There is no mention of one on the left. However it may just not have any fat in it to see it. There was some thickening of the bladder wall that is none specific but can be seen in a urinary tract infection. The antibiotic I placed him on would cover this. Advise patient to give me the update in a few weeks like we discussed. documented in this encounter [facility] 01-28-2024 History of Present illness Narrative 2 Radiology Service Progress Note DATE OF SERVICE: January 28, 2024 TIME: 11:45 AM PATIENT IDENTITY VERIFICATION COMPLETED USING TWO (2) STANDARD IDENTIFIERS: Name and Date of confirmed by patient verbally. FALL SCREENING: Has the patient had 2 falls in the last year or 1 fall with injury or currently using an Ambulatory Assistive Device (Walker, Cane, Wheelchair, Crutches, etc.)? No PATIENT GENDER DATA: Male PATIENT RELEVANT IMPLANT DATA REVIEWED: Yes PATIENT PRESENTS WITH AN IMPLANTABLE OR ATTACHED GENERAL CLAIMS AGENT: No ALLERGIES: Reviewed and unchanged CONTRAST ALLERGY: NO. EXAM: CT -CONTRAST INDUCED NEPHROPATHY RISK FACTORS: Not applicable CREATININE: Creatinine Date Value Ref Range Status 08/29/2023 1.07 0.73 - 1.22 mg/dL Final 08/28/2022 1.07 0.73 - 1.22 mg/dL Final 03/13/2022 1.05 0.73 - 1.22 mg/dL Final Estimated Glomerular Filtration Rate Date Value Ref Range Status 08/29/2023 82 >=60 mL/min/1.73m Final Comment: Estimated Glomerular Filtration Rate (eGFR) is calculated using the 2020 CKD-EPI creatinine equation. This equation utilizes serum creatinine, sex, and age as parameters. The creatinine assay has traceable calibration to isotope dilution-mass spectrometry. Refer to KDIGO guidelines for clinical interpretation. In patients with unstable renal function, e.g. those with acute kidney injury, the eGFR may not accurately reflect actual GFR. eGFR- Date Value Ref Range Status 08/25/2021 >60 Final P.O.C.T. RESULTS: POC done: Yes, See Lab Tab January 28, 2024 TREATMENT: N/A PERIPHERAL IV DATA: Ambulatory: A peripheral IV was started in the Left antecubital site with a Angio cath: 22 gauge. RADIOLOGY DEPARTMENT: CT; Exam(s) Completed: Pelvis SIGNATURE: BRAD [facility]) PATIENT NAME: Benjamin Shepard DATE: January 28, 2024 TIME: 11:45 AM documented in this encounter [facility] 01-28-2024 Note HNO ID: [id number] Author: ASMITA CORONADO RT(R) Service: ? Author Type: System Safety Manager Type: Progress Notes Filed: 01/28/2024 11:45 Note Text: 2 Radiology Service Progress Note DATE OF SERVICE: January 28, 2024 TIME: 11:45 AM PATIENT IDENTITY VERIFICATION COMPLETED USING TWO (2) STANDARD IDENTIFIERS: Name and Date of confirmed by patient verbally. FALL SCREENING: Has the patient had 2 falls in the last year or 1 fall with injury or currently using an Ambulatory Assistive Device (Walker, Cane, Wheelchair, Crutches, etc.)? No PATIENT GENDER DATA: Male PATIENT RELEVANT IMPLANT DATA REVIEWED: Yes PATIENT PRESENTS WITH AN IMPLANTABLE OR ATTACHED GENERAL CLAIMS AGENT: No ALLERGIES: Reviewed and unchanged CONTRAST ALLERGY: NO. EXAM: CT -CONTRAST INDUCED NEPHROPATHY RISK FACTORS: Not applicable CREATININE: Creatinine Date Value Ref Range Status 08/29/2023 1.07 0.73 - 1.22 mg/dL Final 08/28/2022 1.07 0.73 - 1.22 mg/dL Final 03/13/2022 1.05 0.73 - 1.22 mg/dL Final Estimated Glomerular Filtration Rate Date Value Ref Range Status 08/29/2023 82 >=60 mL/min/1.73m? Final Comment: Estimated Glomerular Filtration Rate (eGFR) is calculated using the 2020 CKD-EPI creatinine equation. This equation utilizes serum creatinine, sex, and age as parameters. The creatinine assay has traceable calibration to isotope dilution-mass spectrometry. Refer to KDIGO guidelines for clinical interpretation. In patients with unstable renal function, e.g. those with acute kidney injury, the eGFR may not accurately reflect actual GFR. eGFR- Date Value Ref Range Status 08/25/2021 >60 Final P.O.C.T. RESULTS: POC done: Yes, See Lab Tab January 28, 2024 TREATMENT: N/A PERIPHERAL IV DATA: Ambulatory: A peripheral IV was started in the Left antecubital site with a Angio cath: 22 gauge. RADIOLOGY DEPARTMENT: CT; Exam(s) Completed: Pelvis SIGNATURE: RT Anisha(R) PATIENT NAME: Benjamin Shepard DATE: January 28, 2024 TIME: 11:45 AM [facility] 01-28-2024 Miscellaneous Notes Pt notified of same. Jessica Castillo LPN Let Benjamin know his GC and Chlamydia tests were negative. documented in this encounter [facility] 01-25-2024 Instructions Juan Ramon Stapleton MD - 01/25/2024 9:[address] Stapleton an update on the groin pain in 2-3 weeks via my chart documented in this encounter [facility] 01-25-2024 Note HNO ID: [id number] Author: JUAN RAMON STAPLETON MD Service: ? Author Type: Physician Type: Progress Notes Filed: 01/25/2024 13:44 Note Text: Chief Complaint Patient presents with: Follow Up HPI Benjamin Shepard is a 58 year old male who presents here today for follow up. Patient is here for a follow up on groin pain. Patient was seen back on 07/11/2023 with c/o of bilateral groin pain. On exam he had discomfort with doing an inguinal check on both sides. Patient was placed on bactrim DS twice a day for 14 days. Patient seen 08/03/2023 for f/u and pain was resolved. At his [facility] on 08/27/2023 he also had no recurrence. He called the office on 12/14/2023 with recurrent pain and he was placed back on the bactrim. Patient still with discomfort bilaterally today but not as bad as it had been. Still goes up into the groin, Lt>Rt. Denies any skin sores in the groin, hematuria or pus with urination. Past medical history, appointments, medications, allergies reviewed. Previous Medical History PAST MEDICAL HISTORY Diagnosis Date Ex-smoker 08/28/2022 Quit 1998: smoed about a 1/4PPD for about 8 years. GERD (gastroesophageal reflux disease) 10/13/2014 Hyperlipidemia, mixed 08/26/2021 Hypertriglyceridemia 12/04/2019 sleep study 2008 negative for sleep apnea Well adult exam 10/13/2014 Last done 08/28/2022 Previous Surgical History PAST SURGICAL HISTORY Procedure Laterality Date 2D ECHO COMPLETE INP 11/11/2014 EF= 58% no abnornalities COLONOSCOPY FLX DX W/COLLJ SPEC WHEN PFRMD 05/24/2009 Colonoscopy, repeat 5 yrs (dad with colon CA) KNEE ARTHROSCOP MENISCUS REPAIR MED/LAT Right 02/10/2021 PAST SURGICAL HISTORY OF 08/12/2003 varicose Veins PAST SURGICAL HISTORY OF 08/12/2003 bloodclot removal Family History FAMILY HISTORY Problem Relation Age of Onset Colon Cancer Father 70 or 71 Colon Cancer Maternal Aunt Colon Cancer Maternal Grandmother stomach or colon Heart Maternal Uncle pace maker Coronary Artery Disease Maternal Uncle 50's Diabetes Maternal Aunt Stroke Maternal Grandfather Patient Allergies ALLERGIES Allergen Reactions Ibuprofen Vomiting Omeprazole Myalgia Prevacid [Lansopraz* Myalgia Current Medications Current Outpatient Medications on File Prior to Visit Medication Sig famotidine (PEPCID) 40 mg tablet Take 1 tablet by mouth two times a day as needed. sildenafil (VIAGRA) 50 mg tablet Take 1 tablet by mouth once daily. As needed No current facility-administered medications on file prior to visit. Social History Social History Tobacco Use Smoking status: Former Packs/day: 0.25 Years: 8.00 Additional pack years: 0.00 Total pack years: 2.00 Types: Cigarettes Smokeless tobacco: Former Types: Chew Vaping Use Vaping Use: Never used Substance Use Topics Alcohol use: Yes Comment: weekends Drug use: No Review of Symptoms REVIEW OF SYSTEMS See HPI EXAM: BP 106/68 (BP Site: Left Arm, BP Position: Sitting, BP Cuff Size: Regular Adult) Pulse 76 Resp 16 Wt 94.8 kg (209 lb) BMI 33.23 kg/m? General Appearance: Well appearing, alert, in no acute distress, well-hydrated, well nourished.. Genitalia: Normal except for discomfort over the epididymis and vas def on both sides but Lt>Rt. Has discomfort up into the inguinal canal but no bulge appreciated. . Health Maintenance List Hepatitis B Vaccine(1 of 3 - 19+ 3-dose series) Never done Shingrix Vaccine(1 of 2) Never done Depression Assessment due on 11/12/2023 Covid-19 Vaccine( - 2022- season) due on 08/27/2024 Colorectal Cancer Screening due on 08/29/2024 Diabetes Screening due on 08/29/2026 DTaP,Tdap,Td Vaccine(3 - Td or Tdap) due on 12/19/2026 Lipid Screening due on 08/29/2028 Prostate Cancer Screening Discussion due on 08/29/2028 Hepatitis C Screening Completed Influenza Vaccine Discontinued HIV Screening Discontinued Data reviewed A/P ASSESSMENT/PLAN: 1. Epididymitis, bilateral - ICD9: 604.90, ICD10: N45.1 (primary diagnosis) Check - GONORRHEA/CHLAMYDIA NAAT Will place on Zithromax 1000 mg times one along with Levaquin 500 mg a day for 14 days. 2. Inguinal pain of both sides - ICD9: 789.03, 789.04, ICD10: R10.31, R10.32 Check - GONORRHEA/CHLAMYDIA NAAT - CT PELVIS W IVCON - IV CONTRAST (RADIOLOGY PROCEDURE) - ENTERIC CONTRAST (RADIOLOGY PROCEDURE) 3. Lower abdominal pain - ICD9: 789.09, ICD10: R10.30 Check - CT PELVIS W IVCON - IV CONTRAST (RADIOLOGY PROCEDURE) - ENTERIC CONTRAST (RADIOLOGY PROCEDURE) Requested Prescriptions Signed Prescriptions Disp Refills iv contrast (will be provided with radiology test) 1 Each 0 Sig: CT PELVIS W -Inject, intravenously, once for 1 dose.No IV access, insert saline lock prior to the beginning of sedation, infusion, injection of imaging exam. Discontinue saline lock post exam. If Pt. has a central line or IVAD, may access for administration according to line specific nursing (more content not included)... [facility] 01-25-2024 History of Present illness Narrative Chief Complaint Patient presents with: Follow Up HPI Benjamin Shepard is a 58 year old male who presents here today for follow up. Patient is here for a follow up on groin pain. Patient was seen back on 07/11/2023 with c/o of bilateral groin pain. On exam he had discomfort with doing an inguinal check on both sides. Patient was placed on bactrim DS twice a day for 14 days. Patient seen 08/03/2023 for f/u and pain was resolved. At his [facility] on 08/27/2023 he also had no recurrence. He called the office on 12/14/2023 with recurrent pain and he was placed back on the bactrim. Patient still with discomfort bilaterally today but not as bad as it had been. Still goes up into the groin, Lt>Rt. Denies any skin sores in the groin, hematuria or pus with urination. Past medical history, appointments, medications, allergies reviewed. Previous Medical History PAST MEDICAL HISTORY Diagnosis Date Ex-smoker 08/28/2022 Quit 1998: smoed about a 1/4PPD for about 8 years. GERD (gastroesophageal reflux disease) 10/13/2014 Hyperlipidemia, mixed 08/26/2021 Hypertriglyceridemia 12/04/2019 sleep study 2008 negative for sleep apnea Well adult exam 10/13/2014 Last done 08/28/2022 Previous Surgical History PAST SURGICAL HISTORY Procedure Laterality Date 2D ECHO COMPLETE INP 11/11/2014 EF= 58% no abnornalities COLONOSCOPY FLX DX W/COLLJ SPEC WHEN PFRMD 05/24/2009 Colonoscopy, repeat 5 yrs (dad with colon CA) KNEE ARTHROSCOP MENISCUS REPAIR MED/LAT Right 02/10/2021 PAST SURGICAL HISTORY OF 08/12/2003 varicose Veins PAST SURGICAL HISTORY OF 08/12/2003 bloodclot removal Family History FAMILY HISTORY Problem Relation Age of Onset Colon Cancer Father 70 or 71 Colon Cancer Maternal Aunt Colon Cancer Maternal Grandmother stomach or colon Heart Maternal Uncle pace maker Coronary Artery Disease Maternal Uncle 50's Diabetes Maternal Aunt Stroke Maternal Grandfather Patient Allergies ALLERGIES Allergen Reactions Ibuprofen Vomiting Omeprazole Myalgia Prevacid [Lansopraz* Myalgia Current Medications Current Outpatient Medications on File Prior to Visit Medication Sig famotidine (PEPCID) 40 mg tablet Take 1 tablet by mouth two times a day as needed. sildenafil (VIAGRA) 50 mg tablet Take 1 tablet by mouth once daily. As needed No current facility-administered medications on file prior to visit. Social History Social History Tobacco Use Smoking status: Former Packs/day: 0.25 Years: 8.00 Additional pack years: 0.00 Total pack years: 2.00 Types: Cigarettes Smokeless tobacco: Former Types: Chew Vaping Use Vaping Use: Never used Substance Use Topics Alcohol use: Yes Comment: weekends Drug use: No Review of Symptoms REVIEW OF SYSTEMS See HPI EXAM: BP 106/68 (BP Site: Left Arm, BP Position: Sitting, BP Cuff Size: Regular Adult) Pulse 76 Resp 16 Wt 94.8 kg (209 lb) BMI 33.23 kg/m General Appearance: Well appearing, alert, in no acute distress, well-hydrated, well nourished.. Genitalia: Normal except for discomfort over the epididymis and vas def on both sides but Lt>Rt. Has discomfort up into the inguinal canal but no bulge appreciated. . Health Maintenance List Hepatitis B Vaccine(1 of 3 - 19+ 3-dose series) Never done Shingrix Vaccine(1 of 2) Never done Depression Assessment due on 11/12/2023 Covid-19 Vaccine(2022- season) due on 08/27/2024 Colorectal Cancer Screening due on 08/29/2024 Diabetes Screening due on 08/29/2026 DTaP,Tdap,Td Vaccine(3 - Td or Tdap) due on 12/19/2026 Lipid Screening due on 08/29/2028 Prostate Cancer Screening Discussion due on 08/29/2028 Hepatitis C Screening Completed Influenza Vaccine Discontinued HIV Screening Discontinued Data reviewed A/P ASSESSMENT/PLAN: 1. Epididymitis, bilateral - ICD9: 604.90, ICD10: N45.1 (primary diagnosis) Check - GONORRHEA/CHLAMYDIA NAAT Will place on Zithromax 1000 mg times one along with Levaquin 500 mg a day for 14 days. 2. Inguinal pain of both sides - ICD9: 789.03, 789.04, ICD10: R10.31, R10.32 Check - GONORRHEA/CHLAMYDIA NAAT - CT PELVIS W IVCON - IV CONTRAST (RADIOLOGY PROCEDURE) - ENTERIC CONTRAST (RADIOLOGY PROCEDURE) 3. Lower abdominal pain - ICD9: 789.09, ICD10: R10.30 Check - CT PELVIS W IVCON - IV CONTRAST (RADIOLOGY PROCEDURE) - ENTERIC CONTRAST (RADIOLOGY PROCEDURE) Requested Prescriptions Signed Prescriptions Disp Refills iv contrast (will be provided with radiology test) 1 Each 0 Sig: CT PELVIS W -Inject, intravenously, once for 1 dose.No IV access, insert saline lock prior to the beginning of sedation, infusion, injection of imaging exam. Discontinue saline lock post exam. If Pt. has a central line or IVAD, may access for administration according to line specific nursing protocol. Once exam is complete flush line and de-access according to line specific nursing protocol in the CT contrast administration guidelines link. enteric contrast (will be provided with radiology test) 1 Each 0 Sig: For CT PELVIS W IVCON order Administer, As Directed One Time Only, via Oral, Rectal, both Oral and Rectal, Enteric Tube, Stoma or Indwelling Catheter, Enteric Contrast as designated per enteric contrast guidelines azithromycin (ZITHROMAX) 500 mg tablet 2 tablet 0 Sig: Take 2 tablets by mouth once daily. levoFLOXacin (LEVAQUIN) 500 mg tablet 14 tablet 0 Sig: Take 1 tablet by mouth once daily for 14 days. Patient to my chart me in 2-3 weeks with up date. If CT shows hernia will refer to General Surgery. If ok and pain persists will refer to Urology Dr. Rolle. Juan Ramon Stapleton MD documented in this encounter [facility] 12-14-2023 Miscellaneous Notes Pt notified of Dr Stapleton's message and instructions. Pt verbalizes understanding. 3 week f/u appointment scheduled at this time. Pt aware of same. Jessica Castillo LPN Let patient know I sent in a refill on the bactrium. Without seeing him I can not verify it is 100% the same issue. He needs a f/u with me in 3 weeks to re-eval the testicular pain. If not better the next step will be to see urology. The following approved medication requests have been transmitted electronically. Requested Prescriptions Signed Prescriptions Disp Refills sulfamethoxazole-trimethoprim (BACTRIM DS) 800-160 mg per tablet 28 tablet 0 Sig: Take 1 tablet by mouth two times a day for 14 days. Authorizing Provider: JUAN ARMON STAPLETON MD Pt called in to let you know he is having the same symptoms as before on 07-11-23 when he was seen. Pain in the testicles x 2 to 3 days. Pt was given an ATB Bactrim DS and this took care of it. When he came back in for follow up 08/03/23 pain was gone. Pt asking the followin)Requesting the Bactrim Ds be sent to his pharmacy ([facility]) 2)Any reason this came back? 3)Advise pt on above. Can leave a detailed message because pt is at a service. Renata Lopez LPN documented in this encounter [facility] 08-27-2023 History of Present illness Narrative Chief Complaint Patient presents with: Physical HPI Benjamin Shepard is a 57 year old male who presents here today for Physical. Patient is here for his yearly physical. Patient was seen 07/2023 for bilateral epididymitis. Improved? Patient with hx of high triglycerides, hyperlipidemia, ex-smoker and GERD but otherwise healthy Patient still referring for wrestling? Yes and the season will start 10/20/2023 Past medical history, appointments, medications, allergies reviewed. Previous Medical History PAST MEDICAL HISTORY Diagnosis Date Ex-smoker 08/28/2022 Quit 1998: smoed about a 1/4PPD for about 8 years. GERD (gastroesophageal reflux disease) 10/13/2014 Hyperlipidemia, mixed 08/26/2021 Hypertriglyceridemia 12/04/2019 sleep study 2008 negative for sleep apnea Well adult exam 10/13/2014 Last done 08/28/2022 Previous Surgical History PAST SURGICAL HISTORY Procedure Laterality Date 2D ECHO COMPLETE INP 11/11/2014 EF= 58% no abnornalities COLONOSCOPY FLX DX W/COLLJ SPEC WHEN PFRMD 05/24/2009 Colonoscopy, repeat 5 yrs (dad with colon CA) KNEE ARTHROSCOP MENISCUS REPAIR MED/LAT Right 02/10/2021 PAST SURGICAL HISTORY OF 08/12/2003 varicose Veins PAST SURGICAL HISTORY OF 08/12/2003 bloodclot removal Family History FAMILY HISTORY Problem Relation Age of Onset Colon Cancer Father 70 or 71 Colon Cancer Maternal Aunt Colon Cancer Maternal Grandmother stomach or colon Heart Maternal Uncle pace maker Coronary Artery Disease Maternal Uncle 50's Diabetes Maternal Aunt Stroke Maternal Grandfather Patient Allergies ALLERGIES Allergen Reactions Ibuprofen Vomiting Omeprazole Myalgia Prevacid [Lansopraz* Myalgia Current Medications Current Outpatient Medications on File Prior to Visit Medication Sig Bisacodyl (DULCOLAX) 5 mg tab Use as directed for Miralax / Gatorade Bowel Prep Kit famotidine (PEPCID) 40 mg tablet Take 1 tablet by mouth twice daily as needed. Gatorade Sports Drink Use as directed for Miralax / Gatorade Bowel Prep Kit polyethylene glycol 3350 (MIRALAX, GLYCOLAX) 17 gram/dose powder Use as directed for Miralax / Gatorade Bowel Prep Kit sildenafil (VIAGRA) 50 mg tablet Take 1 tablet by mouth once daily. As needed No current facility-administered medications on file prior to visit. Social History Social History Tobacco Use Smoking status: Former Packs/day: 0.25 Years: 8.00 Additional pack years: 0.00 Total pack years: 2.00 Types: Cigarettes Smokeless tobacco: Former Types: Chew Vaping Use Vaping Use: Never used Substance Use Topics Alcohol use: Yes Comment: weekends Drug use: No Review of Symptoms REVIEW OF SYSTEMS GENERAL: No weight loss, malaise or fevers HEENT: Negative for frequent or significant headaches, No changes in hearing or vision, no nose bleeds or other nasal problems NECK: Negative for lumps, goiter, pain and significant neck swelling RESPIRATORY: Negative for cough, hemoptysis, wheezing, COPD, dyspnea or shortness of breath CARDIOVASCULAR: Negative for chest pain, leg swelling, hypertension, CHF or palpitations GI: No nausea, vomiting, or diarrhea, No heartburn or reflux symptoms, no blood. About 1/2 hr after eating will feel bloated and nauseated. No pain. : No history of dysuria, blood MUSCULOSKELETAL: Negative for joint pain or swelling, back pain or muscle pain SKIN: Negative for lesions,. Gets a itchy rash on the right buttocks and comes and goes. PSYCH: Negative for sleep disturbance, mood disorder and recent psychosocial stressors HEMATOLOGY/LYMPHOLOGY: Negative for prolonged bleeding, bruising easily or swollen nodes ENDOCRINE: Negative for cold or heat intolerance, polyuria, polydipsia and goiter NEURO: No history of headaches, syncope, paralysis, seizures or tremors EXAM: BP 108/64 (BP Site: Left Arm, BP Position: Sitting, BP Cuff Size: Large Adult) Pulse 84 Resp 16 Wt 96.6 kg (213 lb) BMI 33.86 kg/m General Appearance: Well appearing, alert, in no acute distress, well-hydrated, well nourished. and Obese. Skin: Skin color, texture, turgor normal, no suspicious rashes or lesions. Just some eczema on the right buttocks. Head: Normocephalic, no masses, lesions, tenderness or abnormalities. Eyes: Anicteric sclera. Pupils are equally round and reactive to light. Extraocular movements are intact. . Ears: External ears normal, canals clear. Nose/Sinuses: Nares normal, septum midline, mucosa normal, no drainage or sinus tenderness. Oropharynx: Lips, mucosa, and tongue normal, teeth and gums normal, oropharynx normal. Neck: Supple, no adenopathy; thyroid symmetric, normal size, no bruits. Lungs: Lungs clear to auscultation. No wheezing, rhonchi, rales.. Heart: RRR without murmur, gallop, or rubs. No ectopy. Abdomen: Normal abdominal exam, Abdomen soft, non-tender. Bowel sounds normal. No masses, organomegaly. Extremities: No deformities, edema, skin discoloration, . Good capillary refill. . Peripheral Pulses: Normal. Neurologic: Gait normal. Reflexes normal and symmetric. Sensation to light touch and crainal nerves 2-12 intact.. Genitalia: Normal, Penis normal. No urethral discharge. Scrotum normal to palpation. No hernia. As per exam on 07/11/2023 Rectal: Normal exam. Asper exam on 07/11/2023 Health Maintenance List Colorectal Cancer Screening due on 09/28/2022 Depression Assessment due on 11/12/2022 Covid-19 Vaccine( season) due on 07/13/2023 Hepatitis B Vaccine(1 of 3 - 3-dose series) due on 08/28/2023 Shingrix Vaccine(1 of 2) due on 08/28/2023 Diabetes Screening due on 08/28/2025 DTaP,Tdap,Td Vaccine(3 - Td or Tdap) due on 12/19/2026 Lipid Screening due on 08/28/2027 Prostate Cancer Screening Discussion due on 08/28/2027 Hepatitis C Screening Completed Influenza Vaccine Discontinued HIV Screening Discontinued Data reviewed A/P ASSESSMENT/PLAN: 1. Well adult exam - ICD9: V70.0, ICD10: Z00.00 (primary diagnosis) - Counseled on healthy diet and regular exercise - Discussed need for and benefit of weight loss. BMI 33.86 kg/(m^2) - Follow up for annual exam in one year Check - FECAL OCCULT BLOOD TEST - HGB A1C - PSA/PROSTSPECAG DIAG 2. Hyperlipidemia, mixed - ICD9: 272.2, ICD10: E78.2 -await labs - Counseled on healthy diet and regular exercise - Discussed need for and benefit of weight loss. BMI 33.86 kg/(m^2) Check - COMP METABOLIC PANEL - URINALYSIS, WITH MICROSCOPIC - LIPID PANEL, NONFASTING 3. Hypertriglyceridemia - ICD9: 272.1, ICD10: E78.1 - as per #2 Check - COMP METABOLIC PANEL - URINALYSIS, WITH MICROSCOPIC - LIPID PANEL, NONFASTING 4. Gastroesophageal reflux disease without esophagitis - ICD9: 530.81, ICD10: K21.9 - Continue treatment with Pepcid 40 mg BID (patient typically takes prn: so will start daily to see if his symptom of nausea and bloating resolves). Check - H PYLORI IGG AB 5. Screening for colon cancer - ICD9: V76.51, ICD10: Z12.11 Check - FECAL OCCULT BLOOD TEST 6. Encounter for screening for diabetes mellitus - ICD9: V77.1, ICD10: Z13.1 Check - HGB A1C 7. Screening for prostate cancer - ICD9: V76.44, ICD10: Z12.5 Check - PSA/PROSTSPECAG DIAG 8. Nausea - ICD9: 787.02, ICD10: R11.0 Check - H PYLORI IGG AB: if neg will switch pepcid to omeprazole 40 mg a day. If no better will w/u gal bladder. 9. Bloating - ICD9: 787.3, ICD10: R14.0 - as per #8 - H PYLORI IGG AB 10. Eczema, unspecified type - ICD9: 692.9, ICD10: L30.9 - discussed skin care of rash with daily moisturizer. - follow up if symptoms persist or worsen. F/u in a year or sooner if issues. Juan Ramon Stapleton MD documented in this encounter [facility] 07-11-2023 Miscellaneous Notes The following approved medication requests have been transmitted electronically. Requested Prescriptions Signed Prescriptions Disp Refills sildenafil (VIAGRA) 50 mg tablet 10 tablet 5 Sig: Take 1 tablet by mouth once daily. As needed Authorizing Provider: JUAN RAMON STAPLETON MD Pharmacy calling, they need a frequency for the Viagra for insurance. Please clarify and send updated script to pharmacy. documented in this encounter [facility] 07-11-2023 History of Present illness Narrative Chief Complaint Patient presents with: Pain HPI Benjamin Shepard is a 57 year old male who presents here today for Acute onset of testicle pain. Office visit - testicle pain 07/11/2023 Pain has been on both sides and comes and goes. Will go up into the lower pelvis area. Has not seen any bulging. Is and in a monogamous relation. No penile discharge. No skin sores or nodules in the groin area. Started about a week ago Was on a long motor cycle ride from 06/15/2023- and seemed to start shortly after this. Office visit - wellness exam 08/2022 Patient with hx of high triglycerides, hyperlipidemia, ex-smoker and GERD but otherwise healthy. No new issues or concerns. Strained his right achillis last winter and saw Omar [facility]. Was in a boot for a short time and did PHYSICAL THERAPY. No further issues. 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 Past medical history, appointments, medications, allergies reviewed. Previous Medical History PAST MEDICAL HISTORY Diagnosis Date Ex-smoker 08/28/2022 Quit 1998: smoed about a 1/4PPD for about 8 years. GERD (gastroesophageal reflux disease) 10/13/2014 Hyperlipidemia, mixed 08/26/2021 Hypertriglyceridemia 12/04/2019 sleep study 2008 negative for sleep apnea Well adult exam 10/13/2014 Last done 08/28/2022 Previous Surgical History PAST SURGICAL HISTORY Procedure Laterality Date 2D ECHO COMPLETE INP 11/11/2014 EF= 58% no abnornalities COLONOSCOPY FLX DX W/COLLJ SPEC WHEN PFRMD 05/24/2009 Colonoscopy, repeat 5 yrs (dad with colon CA) KNEE ARTHROSCOP MENISCUS REPAIR MED/LAT Right 02/10/2021 PAST SURGICAL HISTORY OF 08/12/2003 varicose Veins PAST SURGICAL HISTORY OF 08/12/2003 bloodclot removal Family History FAMILY HISTORY Problem Relation Age of Onset Colon Cancer Father 70 or 71 Colon Cancer Maternal Aunt Colon Cancer Maternal Grandmother stomach or colon Heart Maternal Uncle pace maker Coronary Artery Disease Maternal Uncle 50's Diabetes Maternal Aunt Stroke Maternal Grandfather Patient Allergies ALLERGIES Allergen Reactions Ibuprofen Vomiting Omeprazole Myalgia Prevacid [Lansopraz* Myalgia Current Medications Current Outpatient Medications on File Prior to Visit Medication Sig sildenafil (VIAGRA) 50 mg tablet Take 1 tablet by mouth as needed. famotidine (PEPCID) 40 mg tablet Take 1 tablet by mouth twice daily. (Patient taking differently: Take 40 mg by mouth twice daily as needed.) polyethylene glycol 3350 (MIRALAX, GLYCOLAX) 17 gram/dose powder Use as directed for Miralax / Gatorade Bowel Prep Kit Gatorade Sports Drink Use as directed for Miralax / Gatorade Bowel Prep Kit Bisacodyl (DULCOLAX) 5 mg tab Use as directed for Miralax / Gatorade Bowel Prep Kit No current facility-administered medications on file prior to visit. Social History Social History Tobacco Use Smoking status: Former Packs/day: 0.25 Years: 8.00 Additional pack years: 0.00 Total pack years: 2.00 Types: Cigarettes Smokeless tobacco: Former Types: Chew Vaping Use Vaping Use: Never used Substance Use Topics Alcohol use: Yes Comment: weekends Drug use: No Review of Symptoms REVIEW OF SYSTEMS See HPI EXAM: BP 112/64 (BP Site: Left Arm, BP Position: Sitting, BP Cuff Size: Large Adult) Pulse 80 Resp 16 Wt 96.2 kg (212 lb) BMI 33.71 kg/m General Appearance: Well appearing, alert, in no acute distress, well-hydrated, well nourished.. Genitalia: Normal, Penis normal. No urethral discharge. Scrotum normal to palpation. No hernia. No lymphadenopathy. Mild discomfort with insertion of exam finger into the inguinal canals bilaterally. . Health Maintenance List COVID-19 VACCINE(3 - Pfizer series) due on 04/24/2021 COLORECTAL CANCER SCREENING due on 09/28/2022 DEPRESSION ASSESSMENT due on 11/12/2022 HEPATITIS B(1 of 3 - 3-dose series) due on 08/28/2023 SHINGRIX VACCINE(1 of 2) due on 08/28/2023 DIABETES SCREEN due on 08/28/2025 DTAP,TDAP,TD(3 - Td or Tdap) due on 12/19/2026 LIPID SCREEN due on 08/28/2027 PROSTATE CANCER SCREENING DISCUSSION due on 08/28/2027 HEPATITIS C SCREENING Completed INFLUENZA Discontinued HIV SCREENING Discontinued Data reviewed A/P ASSESSMENT/PLAN: 1. Epididymitis, bilateral - ICD9: 604.90, ICD10: N45.1 - will treat with bactrim DS twice a day for 14 days. Requested Prescriptions Signed Prescriptions Disp Refills sildenafil (VIAGRA) 50 mg tablet 10 tablet 5 Sig: Take 1 tablet by mouth as needed. famotidine (PEPCID) 40 mg tablet 60 tablet 5 Sig: Take 1 tablet by mouth twice daily as needed. sulfamethoxazole-trimethoprim (BACTRIM DS) 800-160 mg per tablet 28 tablet 0 Sig: Take 1 tablet by mouth twice daily for 14 days. F/u 3 weeks recheck. Juan Ramon Stapleton MD documented in this encounter [facility] 01-23-2023 Miscellaneous Notes The following approved medication requests have been transmitted electronically. Requested Prescriptions Signed Prescriptions Disp Refills sildenafil (VIAGRA) 50 mg tablet 10 tablet 5 Sig: Take 1 tablet by mouth as needed. Authorizing Provider: JUAN RAMON STAPLETON MD Patient has been identified by name and date of : Yes Requested Prescriptions Pending Prescriptions Disp Refills sildenafil (VIAGRA) 50 mg tablet 10 tablet 1 Sig: Take 1 tablet by mouth as needed. RX INSTRUCTIONS: Patient aware RX will be sent to pharmacy. No need to notify patient. [facility] documented in this encounter [facility] 08-30-2022 Miscellaneous Notes TC to patient with providers message below. Patient verbalizes understanding and has no further questions at this time. TERESA Pineda Let patient know PSA, UA, blood sugar test, electrolytes, liver functions and kidney functions were all ok. Lipid panel showed trigs elevated at 350 (goal<150 and were 98 a year ago), HDL is good at 53 and LDL is good and improved at 131. Advise Vincwilliam to try to decrease the amount of fat in diet which affects the Trigs. documented in this encounter [facility] 08-28-2022 History of Present illness Narrative Chief Complaint Patient presents with: Physical HPI Benjamin Shepard is a 56 year old male who presents here today for Physical. Patient with hx of high triglycerides, hyperlipidemia, ex-smoker and GERD but otherwise healthy. No new issues or concerns. Strained his right achillis last winter and saw [facility]. Was in a boot for a short time and did PHYSICAL THERAPY. No further issues. 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 Past medical history, appointments, medications, allergies reviewed. Previous Medical History PAST MEDICAL HISTORY Diagnosis Date GERD (gastroesophageal reflux disease) 10/13/2014 Hypertriglyceridemia 12/04/2019 sleep study 2007 negative for sleep apnea Previous Surgical History PAST SURGICAL HISTORY Procedure Laterality Date 2D ECHO COMPLETE INP 11/11/2014 EF= 58% no abnornalities COLONOSCOPY FLX DX W/COLLJ SPEC WHEN PFRMD 05/24/2009 Colonoscopy, repeat 5 yrs (dad with colon CA) KNEE ARTHROSCOP MENISCUS REPAIR MED/LAT Right 02/10/2021 PAST SURGICAL HISTORY OF 08/12/2003 varicose Veins PAST SURGICAL HISTORY OF 08/12/2003 bloodclot removal Family History FAMILY HISTORY Problem Relation Age of Onset Colon Cancer Father 70 or 71 Colon Cancer Maternal Aunt Colon Cancer Maternal Grandmother stomach or colon Heart Maternal Uncle pace maker Coronary Artery Disease Maternal Uncle 50's Diabetes Maternal Aunt Stroke Maternal Grandfather Patient Allergies ALLERGIES Allergen Reactions Ibuprofen Vomiting Omeprazole Myalgia Prevacid [Lansopraz* Myalgia Current Medications Current Outpatient Medications on File Prior to Visit Medication Sig sildenafil (VIAGRA) 50 mg tablet Take 1 tablet by mouth as needed. famotidine (PEPCID) 40 mg tablet Take 1 tablet by mouth twice daily. (Patient taking differently: Take 40 mg by mouth twice daily as needed. ) polyethylene glycol 3350 (MIRALAX, GLYCOLAX) 17 gram/dose powder Use as directed for Miralax / Gatorade Bowel Prep Kit Gatorade Sports Drink Use as directed for Miralax / Gatorade Bowel Prep Kit Bisacodyl (DULCOLAX) 5 mg tab Use as directed for Miralax / Gatorade Bowel Prep Kit No current facility-administered medications on file prior to visit. Social History Social History Tobacco Use Smoking status: Former Years: 8.00 Types: Cigarettes Smokeless tobacco: Former Types: Chew Vaping Use Vaping Use: Never used Substance Use Topics Alcohol use: Yes Comment: weekends Drug use: No Review of Symptoms REVIEW OF SYSTEMS GENERAL: No weight loss, malaise or fevers HEENT: Negative for frequent or significant headaches, No changes in vision, no nose bleeds or other nasal problems. Slight decrease in vision. NECK: Negative for lumps, goiter, pain and significant neck swelling RESPIRATORY: Negative for cough, hemoptysis, wheezing, COPD, dyspnea or shortness of breath CARDIOVASCULAR: Negative for chest pain, leg swelling, hypertension, CHF or palpitations GI: No nausea, vomiting, or diarrhea, No frequent heartburn or reflux symptoms, and no blood : No history of dysuria, blood. Up maybe once a night. MUSCULOSKELETAL: Negative for joint pain or swelling, back pain or muscle pain SKIN: Negative for lesions, rash, and itching PSYCH: Negative for sleep disturbance, mood disorder and recent psychosocial stressors HEMATOLOGY/LYMPHOLOGY: Negative for prolonged bleeding, bruising easily or swollen nodes ENDOCRINE: Negative for cold or heat intolerance, polyuria, polydipsia and goiter NEURO: No history of headaches, syncope, paralysis, seizures or tremors EXAM: BP 112/68 (BP Site: Left Arm, BP Position: Sitting, BP Cuff Size: Large Adult) Pulse 88 Resp 16 Ht 168.9 cm (5' 6.5) Wt 94.3 kg (208 lb) BMI 33.07 kg/m General Appearance: Well appearing, alert, in no acute distress, well-hydrated, well nourished.. Skin: Skin color, texture, turgor normal, no suspicious rashes or lesions. Head: Normocephalic, no masses, lesions, tenderness or abnormalities. Eyes: Anicteric sclera. Pupils are equally round and reactive to light. Extraocular movements are intact. . Ears: External ears, TM's normal, canals clear. Oropharynx: Lips, mucosa, and tongue normal, teeth and gums normal, oropharynx normal. Neck: Supple, no adenopathy; thyroid symmetric, normal size, no bruits. Lungs: Lungs clear to auscultation. No wheezing, rhonchi, rales.. Heart: RRR without murmur, gallop, or rubs. No ectopy. Abdomen: Normal abdominal exam, Abdomen soft, non-tender. Bowel sounds normal. No masses, organomegaly. Extremities: No deformities, edema, skin discoloration, clubbing or cyanosis. Good capillary refill. . Musculoskeletal: Muscular strength intact, No joint swelling, deformity, or tenderness. Peripheral Pulses: Normal. Neurologic: Gait normal. Reflexes normal and symmetric. Sensation to light touch and crainal nerves 2-12 intact.. Genitalia: Normal. Rectal: Normal exam. Health Maintenance List HEPATITIS B(1 of 3 - 3-dose series) Never done SHINGRIX VACCINE(1 of 2) Never done DTAP,TDAP,TD(2 - Td or Tdap) due on 12/21/2020 COVID-19 VACCINE(3 - Booster for Pfizer series) due on 04/24/2021 DEPRESSION ASSESSMENT Never done INFLUENZA(1) due on 07/13/2022 COLORECTAL CANCER SCREENING due on 09/28/2022 DIABETES SCREEN due on 03/13/2025 LIPID SCREEN due on 08/25/2026 HEPATITIS C SCREENING Completed HIV SCREENING Discontinued Data reviewed A/P ASSESSMENT/PLAN: 1. Well adult exam - ICD9: V70.0, ICD10: Z00.00 (primary diagnosis) - Counseled on healthy diet and regular exercise - Follow up for annual exam in one year - HGB A1C - PSA/PROSTSPECAG DIAG 2. Hyperlipidemia, mixed - ICD9: 272.2, ICD10: E78.2 - to be determined upon return of lab results - Encouraged following a low fat, low cholesterol diet. - Discussed the benefits of regular aerobic exercise and weight loss. - Encouraged following a low carbohydrate, healthy oil intake diet. - Continue current therapy. - COMP METABOLIC PANEL - URINALYSIS, WITH MICROSCOPIC - LIPID PANEL, NONFASTING 3. Hypertriglyceridemia - ICD9: 272.1, ICD10: E78.1 - to be determined upon return of lab results - Encouraged following a low fat, low cholesterol diet. - Discussed the benefits of regular aerobic exercise and weight loss. - Encouraged following a low carbohydrate, healthy oil intake diet. - Continue current therapy. - COMP METABOLIC PANEL - URINALYSIS, WITH MICROSCOPIC - LIPID PANEL, NONFASTING 4. Gastroesophageal reflux disease without esophagitis - ICD9: 530.81, ICD10: K21.9 - Continue treatment with Pepcid 40 mg BID 5. Ex-smoker - ICD9: V15.82, ICD10: Z87.891 - patient to continue. 6. Screening for colon cancer - ICD9: V76.51, ICD10: Z12.11 - CONSULT TO GENERAL SURGERY 7. Screening for prostate cancer - ICD9: V76.44, ICD10: Z12.5 Check - PSA/PROSTSPECAG DIAG 8. Encounter for screening for diabetes mellitus - ICD9: V77.1, ICD10: Z13.1 Check - HGB A1C F/u in a year for WAE or sooner if issues. Juan Ramon Stapleton MD documented in this encounter [facility] 08-09-2022 Miscellaneous Notes The following approved medication requests have been transmitted electronically. Requested Prescriptions Signed Prescriptions Disp Refills sildenafil (VIAGRA) 50 mg tablet 10 tablet 1 Sig: Take 1 tablet by mouth as needed. Authorizing Provider: JUAN RAMON STAPLETON MD Patient has been identified by name and date of : Yes Requested Prescriptions Pending Prescriptions Disp Refills sildenafil (VIAGRA) 50 mg tablet 10 tablet 1 Sig: Take 1 tablet by mouth as needed. RX INSTRUCTIONS: Patient aware RX will be sent to pharmacy. No need to notify patient. Roseline Bell MA Teo: 08/2021 Nov: 08/2022 Last refill: 06/2022 Patient has been identified by name and date of : Yes Requested Prescriptions Pending Prescriptions Disp Refills sildenafil (VIAGRA) 50 mg tablet 10 tablet 1 Sig: Take 1 tablet by mouth as needed. RX INSTRUCTIONS: Patient aware RX will be sent to pharmacy. No need to notify patient. Brandy Lopez Pss documented in this encounter [facility] 06-26-2022 Miscellaneous Notes Pharmacy verified in Epic Patient has been identified by name and date of : Yes Patient aware RX will be sent to pharmacy. No need to notify patient. Patient phones for refill(s): Requested Prescriptions Pending Prescriptions Disp Refills sildenafil (VIAGRA) 50 mg tablet 10 tablet 1 Sig: Take 1 tablet by mouth as needed. Date of last office visit : 03/13/2022 Labs-03/13/22 Date of next office visit : 08/28/2022 Last 2 Encounter Wt Readings: Date: Wt: 03/13/2022 98.4 kg (217 lb) 08/30/2021 99.3 kg (219 lb) Please advise. Rhoda Dillon documented in this encounter [facility] 05-10-2022 Miscellaneous Notes Patient has been identified by name and date of : Yes Pending Prescriptions Disp Refills SILDENAFIL 50 MG TABLET 10 tablet 1 Sig: Take 1 tablet by mouth as needed. IRMA: No TEO-03/13/22 Labs-03/13/22 NOV-08/28/22 Med filled 03/29/21 RX INSTRUCTIONS: Patient aware RX will be sent to pharmacy. No need to notify patient. Gabi Marquez documented in this encounter [facility] 03-29-2022 Miscellaneous Notes The following approved medication requests have been transmitted electronically. Signed Prescriptions Disp Refills sildenafil (VIAGRA) 50 mg tablet 10 tablet 1 Sig: Take 1 tablet by mouth as needed. IRMA: No Authorizing Provider: JUAN RAMON STAPLETON MD Patient has been identified by name and date of : Yes Pending Prescriptions Disp Refills SILDENAFIL 50 MG TABLET 10 tablet 1 Sig: Take 1 tablet by mouth as needed. IRMA: No RX INSTRUCTIONS: Patient aware RX will be sent to pharmacy. No need to notify patient. Brandy John Pss documented in this encounter [facility] 03-14-2022 Miscellaneous Notes Reviewed provider recommendation again with patient. He is aware that he is taking responsibility by not following the provider recommendation. He agrees to go to ER if pain increases. He will call back if he has any other questions. Carolina Mcbride Ma Please review with patient for record: Generally I would recommend go to ER in that case. Usually they will cover if done in ER. I could treat with antibiotics but he may have an abscess and that needs to ruled out. He would have to accept responsibility that my recommendation is to go to ER and I can't be responsible for outcome if not favorable or an occult abscess is present. Called and reviewed: Pain is better, doesn't hurt to touch like yesterday. Eating normally. No BM today. No fever or chills. CRP was low which is favorable. CMP was WNL CBC WNL, no elevated WBC Lipase WNL Has pain significantly changed? The following approved medication requests have been transmitted electronically. Signed Prescriptions Disp Refills amoxicillin-clavulanic acid (AUGMENTIN) 875-125 mg per tablet 20 tablet 0 Sig: Take 1 tablet by mouth twice daily for 10 days. Authorizing Provider: Stanley WESLEY Greg Barton, PA-C Patient calls and asking if provider received message below. Patient states that he would like to have prescription sent to [facility] if provider agreeable. Patient asking for a call back either way if something can be sent or not. Please review and advise, Roseann Benson RN Patient calls to let provider know that he is not going to have the CT Scan of abdomen/pelvis done today. Patient reports that his insurance only covers a small portion of the cost and he is not able to afford the $900 out of pocket. Patient reports provider thought it was diverticulitis and is asking if there is any medication that he could try that would help with that. Patient reports that he continues to have the left lower abdominal pain. Patient is utilizing the Pepcid 40 mg as needed for symptoms of GERD with positive results. Aurea Fink RN documented in this encounter [facility] 03-13-2022 History of Present illness Narrative 56 year old male with c/o Pain in LUQ which started yesterday, sudden onset. Achy, 7-8, constant., Hurts more to press on the area. Appetite is normal No acid/ reflux. No nausea or vomiting. No change in bowel, last BM. No prior surgeries. Can feel when walking. Hasn't really tried anything for pain. 05/24/2009 colonoscopy all WNL. Father, MA colon cancer Famotidine 40mg on occasional Alcohol use 2-3 a t a time, 6 pack a week. Occasional Aleve. HISTORIES FAMILY HISTORY Problem Relation Age of Onset Colon Cancer Father 70 or 71 Colon Cancer Maternal Aunt Colon Cancer Maternal Grandmother stomach or colon Heart Maternal Uncle pace maker Coronary Artery Disease Maternal Uncle 50's Diabetes Maternal Aunt Stroke Maternal Grandfather PAST MEDICAL HISTORY Diagnosis Date GERD (gastroesophageal reflux disease) 10/13/2014 Hypertriglyceridemia 12/04/2019 sleep study 2008 negative for sleep apnea PAST SURGICAL HISTORY Procedure Laterality Date 2D ECHO COMPLETE INP 11/11/2014 EF= 58% no abnornalities COLONOSCOPY FLX DX W/COLLJ SPEC WHEN PFRMD 05/24/2009 Colonoscopy, repeat 5 yrs (dad with colon CA) KNEE ARTHROSCOP MENISCUS REPAIR MED/LAT Right 02/10/2021 PAST SURGICAL HISTORY OF 08/12/2003 varicose Veins PAST SURGICAL HISTORY OF 08/12/2003 bloodclot removal Social History Tobacco Use Smoking status: Former Smoker Years: 8.00 Smokeless tobacco: Former User Types: Chew Vaping Use Vaping Use: Never used Substance Use Topics Alcohol use: Yes Comment: weekends Drug use: No ACTIVE PROBLEM LIST Gerd (Gastroesophageal Reflux Disease) Well Adult Exam Encounter for Screening for Diabetes Mellitus Hypertriglyceridemia Screening for Prostate Cancer Screening for Colon Cancer Hyperlipidemia, Mixed Current Outpatient Medications Medication Sig Dispense Refill famotidine (PEPCID) 40 mg tablet Take 1 tablet by mouth twice daily. (Patient taking differently: Take 40 mg by mouth twice daily as needed. ) 60 tablet 5 sildenafil (VIAGRA) 50 mg tablet Take 1 tablet by mouth as needed. 10 tablet 1 polyethylene glycol 3350 (MIRALAX, GLYCOLAX) 17 gram/dose powder Use as directed for Miralax / Gatorade Bowel Prep Kit 238 g 0 Gatorade Sports Drink Use as directed for Miralax / Gatorade Bowel Prep Kit Bisacodyl (DULCOLAX) 5 mg tab Use as directed for Miralax / Gatorade Bowel Prep Kit 4 tablet 0 No current facility-administered medications for this visit. SHINGRIX VACCINE(1 of 2) Never done DTAP,TDAP,TD(2 - Td or Tdap) due on 12/21/2020 COVID-19 VACCINE(3 - Booster for Pfizer series) due on 07/30/2021 EXAM: BP 110/68 Pulse 91 Temp 37.1 C (98.7 F) (Tympanic) Resp 16 Wt 98.4 kg (217 lb) SpO2 96% BMI 34.26 kg/m Pleasant overweight adult male in no acute distress. Alert and oriented all spheres. Normal affect and cognition. Speech normal. No deficits to learning or comprehension. Skin warm, dry, pink to lips and nailbeds. Normal turgor. Respirations regular and unlabored. Head NCAT, no scleral icterus or conjunctival injection. Nose and oropharynx free from injection or lesion, oral membranes are moist. Neck is supple, no cervical lymphadenopathy. Thyroid exam is nontender, no masses. Chest is clear to auscultation percussion, cardiac exam regular rate and rhythm with no murmurs or gallops. The abdomen is rounded, soft, obese, active bowel sounds throughout. Positive tenderness to percussion over the left upper and left lower quadrant, positive tenderness without significant guarding. Negative heel strike Extrem: no clubbing or cyanosis. Edema: None. Extremities are warm and pink with prompt capillary refill. Component Latest Ref Rng & Units 03/13/2022 GLUCOSE UA (POCT) Negative mg/dL Negative BILIRUBIN UA (POCT) Negative Negative KETONE UA (POCT) Negative mg/dL Negative SPECIFIC GRAVITY UA (POCT) 1.005 - 1.030 >=1.030 HEMOGLOBIN/BLOOD UA (POCT) Negative Negative PH UA (POCT) 4.5 - 8.0 5.5 PROTEIN UA (POCT) Negative mg/dL Negative UROBILINOGEN UA (POCT) Normal E.U./dL 0.2 NITRITE UA (POCT) Negative Negative LEUKOCYTES UA (POCT) Negative Negative COLOR UA (POCT) Yellow CLARITY UA (POCT) Clear ASSESSMENT/PLAN: 1. Left lower quadrant abdominal pain - ICD9: 789.04, ICD10: R10.32 Proceed with lab, patient did not feel he needed pain medication. Unable to get CT until tomorrow morning. Patient was advised on red flags including fever, severe pain, vomiting he emergently evaluated in the ER. - CBC + DIFF - COMP METABOLIC PANEL - UA DIP, URINE (POC) - C-REACTIVE PROTEIN (CRP) - LIPASE BLD - CT ABD/PEL WO IVCON - ENTERIC CONTRAST (RADIOLOGY PROCEDURE) Stanley Wesley PA-C documented in this encounter [facility] 03-13-2022 Miscellaneous Notes Reason For Call: Abdominal Pain Ourtcome: Conferenced patient to appt center and given an appt this afternoon Reason for Disposition [1] MILD-MODERATE pain AND [2] constant AND [3] present > 2 hours Advised patient to be seen within 4 hours Answer Assessment - Initial Assessment Questions 1. LOCATION: Where does it hurt? Left lower abdomen 2. RADIATION: Does the pain shoot anywhere else? (e.g., chest, back) No 3. ONSET: When did the pain begin? (Minutes, hours or days ago) Yesterday 4. SUDDEN: Gradual or sudden onset? Pain started yesterday AM 5. PATTERN Does the pain come and go, or is it constant? Pain 7/10. Moderate per patient. Constant pain today 6. SEVERITY: How bad is the pain? (e.g., Scale 1-10; mild, moderate, or severe) See above 7. RECURRENT SYMPTOM: Have you ever had this type of stomach pain before? If Yes, ask: When was the last time? and What happened that time? No 8. CAUSE: What do you think is causing the stomach pain? Unknown 9. RELIEVING/AGGRAVATING FACTORS: What makes it better or worse? (e.g., movement, antacids, bowel movement) Deep breath and palpating lower belly on left side 10. OTHER SYMPTOMS: Has there been any vomiting, diarrhea, constipation, or urine problems? No. See Communicable Screen Protocols used: ABDOMINAL PAIN - [id number] documented in this encounter [facility] 02-07-2022 Miscellaneous Notes TEO 08/25/21 NOV 08/28/22 Patient has been identified by name and date of : Yes Pending Prescriptions Disp Refills SILDENAFIL 50 MG TABLET 10 tablet 1 Sig: Take 1 tablet by mouth as needed. IRMA: No RX INSTRUCTIONS: Patient aware RX will be sent to pharmacy. No need to notify patient. Jesika Siddiqi Pss documented in this encounter [facility] Evaluation note Diagnosis Left lower quadrant abdominal pain [facility] Diagnosis Left lateral abdominal pain- Primary Abdominal pain, unspecified site [facility] Diagnosis Well adult exam- Primary Routine general medical examination at a health care facility Hyperlipidemia, mixed Mixed hyperlipidemia Hypertriglyceridemia Pure hyperglyceridemia Gastroesophageal reflux disease without esophagitis Esophageal reflux Ex-smoker Personal history of tobacco use, presenting hazards to health Screening for colon cancer Special screening for malignant neoplasms, colon Screening for prostate cancer Special screening for malignant neoplasm of prostate Encounter for screening for diabetes mellitus Screening for diabetes mellitus [facility] Diagnosis Epididymitis, bilateral- Primary Orchitis and epididymitis, unspecified [facility] Diagnosis Well adult exam- Primary Routine general medical examination at a [facility] care facility Hyperlipidemia, mixed Mixed hyperlipidemia Hypertriglyceridemia Pure hyperglyceridemia Gastroesophageal reflux disease without esophagitis Esophageal reflux Screening for colon cancer Special screening for malignant neoplasms, colon Encounter for screening for diabetes mellitus Screening for diabetes mellitus Screening for prostate cancer Special screening for malignant neoplasm of prostate Nausea Nausea alone Bloating Flatulence, eructation, and gas pain Eczema, unspecified type documented in this encounter [facility] note* Diagnosis Epididymitis, bilateral- Primary Orchitis and epididymitis, unspecified Inguinal pain of both sides Abdominal pain, unspecified site Lower abdominal pain Abdominal pain, other specified site documented in this encounter [facility] note* Diagnosis Inguinal pain of both sides Abdominal pain, unspecified site Lower abdominal pain Abdominal pain, other specified site documented in this encounter [facility] note* Diagnosis Onset Date Resolution Status Strain of right wrist acute [facility] Work Phone: Evaluation note* Diagnosis Well adult exam- Primary Routine general medical examination at a [facility] care [facility] Hyperlipidemia, mixed Mixed hyperlipidemia Hypertriglyceridemia Pure hyperglyceridemia Gastroesophageal reflux disease without esophagitis Esophageal reflux Need for hepatitis B screening test Need for vaccination Need for prophylactic vaccination and inoculation against unspecified single disease Encounter for screening for diabetes mellitus Screening for diabetes mellitus Screening for colon cancer Special screening for malignant neoplasms, colon Screening for prostate cancer Special screening for malignant neoplasm of prostate Family hx of colon cancer Family history of malignant neoplasm of gastrointestinal tract Bloating Flatulence, eructation, and gas pain documented in this encounter [facility] note* Diagnosis Hyperlipidemia, mixed- Primary Mixed hyperlipidemia documented in this encounter [facility] note* Diagnosis URI, acute- Primary Acute upper respiratory infections of unspecified site Acute cough documented in this encounter [facility] noteNo assessment information availableWMercy Hospital Work Phone: Hospital Discharge instructions Additional Instructions Follow-up with your primary care physician as well as urology. Tylenol and Motrin as needed for pain.[facility] Work Phone: Reason for referral (narrative)No reason for referral information availableWMercy Hospital Work Phone: Reason for Referral Specialty Diagnoses / Procedures Referred By Contac t Referred To Contact CT IMAGING Diagnoses Left lower quadrant abdominal pain Procedures CT ABD/PEL WO IVCON CT ABD & PELVIS W/O CONTRAST Stanley Wesley PA-C [address] [place] [address] Ct Imaging Referral ID Status Reason Start Date Expiration Date Visits Requested Visits Authorized [id number] Authorized Auto-Generat ed Referral Patient Cleared - Admin/Chairm an/Director advise to proceed 03/13/2022 04/11/2022 2 2 Specialty Diagnoses / Procedures Referred By Contac t Referred To Contact General Surgery Diagnoses Screening for colon cancer Procedures CONSULT TO GENERAL SURGERY OFFICE/OUTPATIENT [facility] 60-74 MINUTES Juan Ramon Stapleton MD [address] [place] [address] Referral ID Status Reason Start Date Expiration Date Visits Requested Visits Authorized [id number] Authorized PCP Requested Referral 2 08/28/2023 1 1 Specialty Diagnoses / Procedures Referred By Contac t Referred To Contact CT IMAGING Diagnoses Inguinal pain of both sides Lower abdominal pain Procedures CT PELVIS W IVCON CT PELVIS W/CONTRAST MATERIAL Juan Ramon Stapleton MD [address] [place] [address] [place] [id number] Referral ID Status Reason Start Date Expiration Date Visits Requested Visits Authorized [id number] Authorized Auto-Generat ed Referral 01/25/2024 02/23/2025 1 1 Referral ID Status Reason Start Date Expiration Date V isits Requested Visits Authorized [id number] Closed Auto-Generate d Referral 01/25/2024 02/23/2025 2 2 Specialty Diagnoses / Procedures Referred By Contac t Referred To Contact General Surgery Diagnoses Screening for colon cancer Family hx of colon cancer Bloating Procedures CONSULT TO GENERAL SURGERY OFFICE/OUTPATIENT [facility] 60 MINUTES Juan Ramon Stapleton MD [address] [place] [address] Referral ID Status Reason Start Date Expiration Date Visits Requested Visits Authorized [id number] Authorized PCP Requested Referral 4 08/28/2025 1 1 Chief Complaint and Reason for Visit Chief Complaint RT WRIST INJURY/ COL LEGE OF OMAR right wrist strain Reason for Visit Strain of right wris t Chief Complaint Admit Date LEFT TESTICLE PAIN April 27, 2025 11:4 5am Advance Directives Advance Directive Response Recorded Date/ Time Living Will No April 12, 2017 1 :02pm Power of Blow Moulding Machine Operator No April 12, 2017 1:02pm Advance Directive Response Recorded Date/ Time Do you have a Healthcare Power of Blow Moulding Machine Operator? No April 27, 2025 1:14pm Summary Purpose Family History No Family History Records FoundNo Family History Records Found Additional Source Comments Source Comments (unrecognize d section and content) In the event this informatio n is protected by the Federal Confidentiality of Alcohol and Drug Abuse Patient Records regulations: The Federal rules restrict any use of the information to criminally investigate or prosecute any alcohol or drug abuse patient.[facility] the event this information is protected by the Federal Confidentiality of Alcohol and Drug Abuse Patient Records regulations: The Federal rules restrict any use of the information to criminally investigate or prosecute any alcohol or drug abuse patient.[facility] the event this information is protected by the Federal Confidentiality of Alcohol and Drug Abuse Patient Records regulations: The Federal rules restrict any use of the information to criminally investigate or prosecute any alcohol or drug abuse patient.[facility] the event this information is protected by the Federal Confidentiality of Alcohol and Drug Abuse Patient Records regulations: The Federal rules restrict any use of the information to criminally investigate or prosecute any alcohol or drug abuse patient.[facility] the event this information is protected by the Federal Confidentiality of Alcohol and Drug Abuse Patient Records regulations: The Federal rules restrict any use of the information to criminally investigate or prosecute any alcohol or drug abuse patient.[facility] the event this information is protected by the Federal Confidentiality of Alcohol and Drug Abuse Patient Records regulations: The Federal rules restrict any use of the information to criminally investigate or prosecute any alcohol or drug abuse patient.[facility] the event this information is protected by the Federal Confidentiality of Alcohol and Drug Abuse Patient Records regulations: The Federal rules restrict any use of the information to criminally investigate or prosecute any alcohol or drug abuse patient.[facility] the event this information is protected by the Federal Confidentiality of Alcohol and Drug Abuse Patient Records regulations: The Federal rules restrict any use of the information to criminally investigate or prosecute any alcohol or drug abuse patient.[facility]In the event this information is protected by the Federal Confidentiality of Alcohol and Drug Abuse Patient Records regulations: The Federal rules restrict any use of the information to criminally investigate or prosecute any alcohol or drug abuse patient.[facility] HospitalIn the event this information is protected by the Federal Confidentiality of Alcohol and Drug Abuse Patient Records regulations: The Federal rules restrict any use of the information to criminally investigate or prosecute any alcohol or drug abuse patient.[facility]In the event this information is protected by the Federal Confidentiality of Alcohol and Drug Abuse Patient Records regulations: The Federal rules restrict any use of the information to criminally investigate or prosecute any alcohol or drug abuse patient.[facility]In the event this information is protected by the Federal Confidentiality of Alcohol and Drug Abuse Patient Records regulations: The Federal rules restrict any use of the information to criminally investigate or prosecute any alcohol or drug abuse patient.[facility]In the event this information is protected by the Federal Confidentiality of Alcohol and Drug Abuse Patient Records regulations: The Federal rules restrict any use of the information to criminally investigate or prosecute any alcohol or drug abuse patient.[facility] HospitalIn the event this information is protected by the Federal Confidentiality of Alcohol and Drug Abuse Patient Records regulations: The Federal rules restrict any use of the information to criminally investigate or prosecute any alcohol or drug abuse patient.[facility]In the event this information is protected by the Federal Confidentiality of Alcohol and Drug Abuse Patient Records regulations: The Federal rules restrict any use of the information to criminally investigate or prosecute any alcohol or drug abuse patient.[facility]In the event this information is protected by the Federal Confidentiality of Alcohol and Drug Abuse Patient Records regulations: The Federal rules restrict any use of the information to criminally investigate or prosecute any alcohol or drug abuse patient.[facility] HospitalIn the event this information is protected by the Federal Confidentiality of Alcohol and Drug Abuse Patient Records regulations: The Federal rules restrict any use of the information to criminally investigate or prosecute any alcohol or drug abuse patient.[facility]In the event this information is protected by the Federal Confidentiality of Alcohol and Drug Abuse Patient Records regulations: The Federal rules restrict any use of the information to criminally investigate or prosecute any alcohol or drug abuse patient.[facility] HospitalIn the event this information is protected by the Federal Confidentiality of Alcohol and Drug Abuse Patient Records regulations: The Federal rules restrict any use of the information to criminally investigate or prosecute any alcohol or drug abuse patient.[facility] HospitalIn the event this information is protected by the Federal Confidentiality of Alcohol and Drug Abuse Patient Records regulations: The Federal rules restrict any use of the information to criminally investigate or prosecute any alcohol or drug abuse patient.[facility]In the event this information is protected by the Federal Confidentiality of Alcohol and Drug Abuse Patient Records regulations: The Federal rules restrict any use of the information to criminally investigate or prosecute any alcohol or drug abuse patient.[facility]In the event this information is protected by the Federal Confidentiality of Alcohol and Drug Abuse Patient Records regulations: The Federal rules restrict any use of the information to criminally investigate or prosecute any alcohol or drug abuse patient.[facility]In the event this information is protected by the Federal Confidentiality of Alcohol and Drug Abuse Patient Records regulations: The Federal rules restrict any use of the information to criminally investigate or prosecute any alcohol or drug abuse patient.[facility]In the event this information is protected by the Federal Confidentiality of Alcohol and Drug Abuse Patient Records regulations: The Federal rules restrict any use of the information to criminally investigate or prosecute any alcohol or drug abuse patient.[facility] HospitalIn the event this information is protected by the Federal Confidentiality of Alcohol and Drug Abuse Patient Records regulations: The Federal rules restrict any use of the information to criminally investigate or prosecute any alcohol or drug abuse patient.[facility] HospitalIn the event this information is protected by the Federal Confidentiality of Alcohol and Drug Abuse Patient Records regulations: The Federal rules restrict any use of the information to criminally investigate or prosecute any alcohol or drug abuse patient.[facility] HospitalIn the event this information is protected by the Federal Confidentiality of Alcohol and Drug Abuse Patient Records regulations: The Federal rules restrict any use of the information to criminally investigate or prosecute any alcohol or drug abuse patient.[facility] HospitalIn the event this information is protected by the Federal Confidentiality of Alcohol and Drug Abuse Patient Records regulations: The Federal rules restrict any use of the information to criminally investigate or prosecute any alcohol or drug abuse patient.[facility] Reason for Visit (unrecogniz ed section and content) Reason Comments Radiology CT Specialty Diagnoses / Procedures Referred By Ziyad t Referred To Contact CT IMAGING Diagnoses Inguinal pain of both sides Lower abdominal pain Procedures CT PELVIS W IVCON CT PELVIS W/CONTRAST MATERIAL Juan Ramon Stapleton MD [address] [place] [address] [place] [id number] Referral ID Status Reason Start Date Expiration Date V isits Requested Visits Authorized [id number] Closed Auto-Generate d Referral 01/25/2024 02/23/2025 2 2 Reason Onset Date Comments Refill Request 02/07/2022 Reason Comments Abdominal Pain Reason Comments Abdominal Pain LUQ, started yesterd ay morning Reason Comments Patient Question Reason Comments Prescription Refills Reason Onset Date Comments Refill Request 05/10/2022 Reason Onset Date Comments Refill Request 06/26/2022 Reason Comments Refill Request Reason Comments Physical Reason Comments Results Reason Comments Pain Reason Comments Physical Reason Comments requesting medication Reason Comments Follow Up Reason Comments Calf Pain Reason Comments External Imaging / Wrist XRay Reason Onset Date Comments Refill Request 05/09/2024 Needs today Reason Onset Date Comments Refill Request 08/19/2024 Reason Comments Cough Nausea, body chills, productive cough x 4 days Reason Onset Date Comments Appointment 04/27/2025 Care Teams (unrecognized sec tion and content) Butcher Supervisor Relationship Specialty Start Date End Date Juan Ramon Stapleton MD [address] [place] [address] PCP - General Family Practice 10/15/14 Butcher Supervisor Relationship Specialty Start Date End Date Juan Ramon Stapleton MD [facility] [place] [address] PCP - General Family Practice 10/15/14 Butcher Supervisor Relationship Specialty Start Date End Date Juan Ramon Stapleton MD [address] [place] [address] [place] [address] PCP - General Family Practice 10/15/14 Butcher Supervisor Relationship Specialty Start Date End Date Juan Ramon Stapleton MD [address] [place] [address] [place] [address] PCP - General Family Practice 10/15/14 Butcher Supervisor Relationship Specialty Start Date End Date Juan Ramon Stapleton MD [address] [place] [address], [place] [address] PCP - General Family Practice 10/15/14 Butcher Supervisor Relationship Specialty Start Date End Date Juan Ramon Stapleton MD [address] [place] [address] [place] [address] PCP - General Family Practice 10/15/14 Butcher Supervisor Relationship Specialty Start Date End Date Juan Ramon Stapleton MD [address] [place] [address] [place] [address] PCP - General Family Medicine 10/15/14 Butcher Supervisor Relationship Specialty Start Date End Date Juan Ramon Stapleton MD [address] [place] [address] [place] [address] PCP - General Family Medicine 10/15/14 Butcher Supervisor Relationship Specialty Start Date End Date Juan Ramon Stapleton MD [address] [place] [address] PCP - General Family Medicine 10/15/14 Butcher Supervisor Relationship Specialty Start Date End Date Juan Ramon Stapleton MD [address] [place] [address] PCP - General Family Medicine 10/15/14 Butcher Supervisor Relationship Specialty Start Date End Date Juan Ramon Stapleton MD [address] [place] [address] PCP - General Family Medicine 10/15/14 Butcher Supervisor Relationship Specialty Start Date End Date Juan Ramon Stapleton MD [address] [place] [address] PCP - General Family Medicine 10/15/14 Butcher Supervisor Relationship Specialty Start Date End Date Juan Ramon Stapleton MD [address] [place] [address] PCP - General Family Medicine 10/15/14 Butcher Supervisor Relationship Specialty Start Date End Date Juan Ramon Stapleton MD [address] [place] [address] PCP - General Family Medicine 10/15/14 Butcher Supervisor Relationship Specialty Start Date End Date Juan Ramon Stapleton MD [address] [place] [address] PCP - General Family Medicine 10/15/14 Butcher Supervisor Relationship Specialty Start Date End Date Juan Ramon Stapleton MD [address] [place] [address] PCP - General Family Medicine 10/15/14 Butcher Supervisor Relationship Specialty Start Date End Date Juan Ramon Stapleton MD [address] [place] [address] PCP - General Family Medicine 10/15/14 Butcher Supervisor Relationship Specialty Start Date End Date Juan Ramon Stapleton MD [address] [place] [address] PCP - General Family Medicine 10/15/14 Butcher Supervisor Relationship Specialty Start Date End Date Juan Ramon Stapleton MD [address] [place] [address] PCP - General Family Medicine 10/15/14 Butcher Supervisor Relationship Specialty Start Date End Date Juan Ramon Stapleton MD [address] [place] [address] PCP - General Family Medicine 10/15/14 Team Status: Active Member Role Status Dates Dr. Juan Ramon Stapleton MD Family Provider Active Dr. Juan Ramon Stapleton MD Primary Care Provider Active Team Status: Inactive Member Role Status Dates Dr. Juan Ramon Stapleton MD Primary Care Provider, Referri ng Provider Active CRISTIANO Douglass Attending Provider Active Team Status: Inactive Member Role Status Dates Dr. Juan Ramon Stapleton MD Primary Care Provider Active CRISTIANO Douglass Attending Provider, Referring Provi shahab Active Butcher Supervisor Relationship Specialty Start Date End Date Juan Ramon Stapleton MD [address] [place] [address] PCP - General Family Medicine 10/15/14 Butcher Supervisor Relationship Specialty Start Date End Date Juan Ramon Stapleton MD [address] [place] [address] PCP - General Family Medicine 10/15/14 Butcher Supervisor Relationship Specialty Start Date End Date Juan Ramon Stapleton MD [address] [place], [place] [address] PCP - General Family Medicine 10/15/14 Butcher Supervisor Relationship Specialty Start Date End Date Juan Ramon Stapleton MD [address] [facility], [place] [address] PCP - General Family Medicine 10/15/14 Terrie Dick APRN.CNP [address] [place], [place] [id number] Lactation Consultant [facility] 04/13/25 Dacia Cagle PA-C [address] [facility], [place] [id number] [facility] 04/13/25 Team Status: Active Member Role Status Dates Dr. Juan Ramon Stapleton MD Primary Care Provider Active Team Status: Inactive Member Role Status Dates Dr. Juan Ramon Stapleton MD Primary Care Provider Active Start: April 27, 2025 End: April 27, 2025 Dr. Quincy Delarosa DO Emergency Provider Activ e Start: April 27, 2025 End: April 27, 2025 Goals (unrecognized section and content) Goals may be documented in a n alternate sectionGoals may be documented in an alternate section (unrecognized sect ion and content) No Status Records FoundNo Status Records Found INFORMATION SOURCE (unrecogn ized section and content) DATE CREATED AUTHOR 03/04/2024 [facility] DATE CREATED AUTHOR AUTHOR'S ORGANIZ ATION 09/20/2024 [facility] FOR RECORDS PERTAINING TO PATIENTS WHO ARE OR HAVE BEEN ENROLLED IN A CHEMICAL DEPENDENCY/SUBSTANCEABUSE PROGRAM, SOME INFORMATION MAY BE OMITTED. This clinical summary was aggregated from multiple sources. Caution should be exercised in using it in the provision of clinical care. This summary normalizes information from multiple sources, and as a consequence, information in this document may materially change the coding, format and clinical context of patient data. In addition, data may be omitted in some cases. CLINICAL DECISIONS SHOULD BE BASED ON THE PRIMARY CLINICAL RECORDS. [facility] [employer] [facility]. provides no warranty or guarantee of the accuracy or completeness of information in this document.
== END 2025-04-27 14:54 | disposition home or self-care (01) ==
PROVIDERS: Emergency Provider Surgery; PCP Family Medicine; Visit Provider Surgery
DX: N43.3 Hydrocele, unspecified (principal); N50.812 Left testicular pain; K21.9 Gastro-esophageal reflux disease without esophagitis; Z87.440 Personal history of urinary (tract) infections; Z79.899 Other long term (current) drug therapy
CPT/HCPCS: 76870; 81001; 93976; 99282